=== PATIENT | female | born 1950 | race Caucasian/White ===

== ENCOUNTER → 2016-07-12 | Outpatient (CLI) | payer MEDICARE ==
[~2016-07-12] MED LIST: DICL75TA2 PO; FLUO20CA25 PO; MOEX15TA PO; ONDA4TAB11 PO; SIMV20TA3 PO; SPIR100T28 PO
--- OUTSIDE RECORDS SUMMARY | 2016-07-12 09:30 | XMS REPORT | Continuity of Care Document ---
Author Author [facility] Organization [facility] Address Unknown Phone Unavailable Allergies Active Description Code Type Severity Reaction Onset Reported/Identified Relationship to Patient Clinical Status Yes NKANo Known Allergies NKA Miscellaneous Allergy Unknown N/ A 12/27/2005 Medications Problems Date Dx Coded Attending Type Code Diagnosis Diagnosed By 12/26/2011 Ot 723.0 CERVICAL SPINAL STENOSIS 12/26/2011 Ot V57.1 PHYSICAL THERAPY NEC 05/04/2012 Ot 719.47 JOINT PAIN-ANKLE 05/04/2012 Ot 845.00 SPRAIN OF ANKLE NOS 05/04/2012 Ot E000.8 OTHER EXTERNAL CAUSE STATUS 05/04/2012 Ot E849.0 ACCIDENT IN HOME 05/04/2012 Ot E888.9 FALL NOS 03/23/2013 LIANA FAGAN, TIRSO Baird Ot 728.87 MUSCLE WEAKNESS (GENERALIZED) 03/23/2013 TIRSO GAINES MD Ot V57.1 PHYSICAL THERAPY NEC 03/23/2013 TIRSO GAINES MD Ot V58.78 AFTERCARE POST SURGERY MUSCULOSKELETAL S 06/07/2013 ALICJA FAGAN, PARAM Diehl Ot 455.3 EXT HEMORRHOID W/O COMPL 06/07/2013 ALICJA FAGAN, PARAM Diehl Ot V12.72 PERSONAL HISTORY OF COLONIC POLYPS 08/15/2014 LAURITA FAGAN, MOO Lindsey Ot 722.52 08/15/2014 MOO SHAY MD Ot V57.1 09/13/2014 MOO SHAY MD Ot 722.52 LUMB/LUMBOSAC DISC DEGEN 09/13/2014 MOO SHAY MD Ot V57.1 PHYSICAL THERAPY NEC 10/08/2014 MOO SHAY MD Ot V76.12 02/09/2015 MAL SERRANO MD Ot K59.00 CONSTIPATION, UNSPECIFIED 02/09/2015 MAL SERRANO MD Ot R11.2 NAUSEA WITH VOMITING, UNSPECIFIED 02/09/2015 MAL SERRANO MD Ot R55 SYNCOPE AND COLLAPSE 09/06/2015 AGUAYO DO, JULIETTE L Ot S52.571A OTH INTARTIC FRACTURE OF LOWER END OF RI 09/06/2015 AGUAYO DO, JULIETTE L Ot W01.0XXA FALL SAME LEV FROM SLIP/TRIP W/O STRIKE 09/06/2015 AGUAYO DO, JULIETTE L Ot Y92.[address]LE [address] 09/06/2015 AGUAYO DO, JULIETTE L Ot Y93.52 ACTIVITY, HORSEBACK RIDING 09/06/2015 AGUAYO DO, JULIETTE L Ot Y99.8 OTHER EXTERNAL CAUSE STATUS 09/06/2015 AGUAYO DO, JULIETTE L Ot Z87.891 PERSONAL HISTORY OF NICOTINE DEPENDENCE 09/07/2015 AGUAYO DO, JULIETTE L Ot S52.571A OTH INTARTIC FRACTURE OF LOWER END OF RI 09/07/2015 AGUAYO DO, JULIETTE L Ot W01.0XXA FALL SAME LEV FROM SLIP/TRIP W/O STRIKE 09/07/2015 AGUAYO DO, JULIETTE L Ot Y92.[address] 09/07/2015 AGUAYO DO, JULIETTE L Ot Y93.52 ACTIVITY, HORSEBACK RIDING 09/07/2015 AGUAYO DO, JULIETTE L Ot Y99.8 OTHER EXTERNAL CAUSE STATUS 09/07/2015 AGUAYO DO, JULIETTE L Ot Z87.891 PERSONAL HISTORY OF NICOTINE DEPENDENCE 09/08/2015 AGUAYO DO, JULIETTE L Ot S52.571A OTH INTARTIC FRACTURE OF LOWER END OF RI 09/08/2015 AGUAYO DO, JULIETTE L Ot W01.0XXA FALL SAME LEV FROM SLIP/TRIP W/O STRIKE 09/08/2015 AGUAYO DO, JULIETTE L Ot Y92.[address] 09/08/2015 AGUAYO DO, JULIETTE L Ot Y93.52 ACTIVITY, HORSEBACK RIDING 09/08/2015 AGUAYO DO, JULIETTE L Ot Y99.8 OTHER EXTERNAL CAUSE STATUS 09/08/2015 AGUAYO DO, JULIETTE L Ot Z87.891 PERSONAL HISTORY OF NICOTINE DEPENDENCE 09/29/2015 AGUAYO DO, JULIETTE L Ot S52.571A OTH INTARTIC FRACTURE OF LOWER END OF RI 09/29/2015 AGUAYO DO, JULIETTE L Ot W01.0XXA FALL SAME LEV FROM SLIP/TRIP W/O STRIKE 09/29/2015 JULIETTE AGUAYO DO Ot Y92.[address] 09/29/2015 JULIETTE AGUAYO DO Ot Y93.52 ACTIVITY, HORSEBACK RIDING 09/29/2015 JULIETTE AGUAYO DO Ot Y99.8 OTHER EXTERNAL CAUSE STATUS 09/29/2015 JULIETTE AGUAYO DO Ot Z87.891 PERSONAL HISTORY OF NICOTINE DEPENDENCE 01/11/2016 ALICJA FAGAN, PARAM Diehl Ot V72.84 EXAM PRE-OPERATIVE NOS 01/11/2016 LAURITA FAGAN, MOO Lindsey Ot V76.12 OTH SCREEN MAMMO-MALIGN NEOPLASM OF [place] 01/11/2016 MOO SHAY MD Ot V76.12 OTH SCREEN MAMMO-MALIGN NEOPLASM OF [place] 01/12/2016 MOO SHAY MD Ot M47.816 SPONDYLOSIS W/O MYELOPATHY OR RADICULOPA 01/12/2016 MOO SHAY MD Ot M85.89 OT DISRD OF BONE DENSITY AND STRUCTURE , 01/16/2016 OMO SHAY MD Ot M47.816 SPONDYLOSIS W/O MYELOPATHY OR RADICULOPA 01/16/2016 MOO SHAY MD Ot M85.89 OTH DISRD OF BONE DENSITY AND STRUCTURE , 02/01/2016 MOO SHAY MD Ot M47.816 SPONDYLOSIS W/O MYELOPATHY OR RADICULOPA 02/01/2016 MOO SHAY MD Ot M85.89 OT DISRD OF BONE DENSITY AND STRUCTURE , Procedures Results Encounters ACCT No. Visit Date/Time Discharge Status Pt. Type Provider Facility Loc./Unit Complaint [id number] 09/06/2015 12:43:00 2015 14:32:00 DIS Emergency JULIETTE AGUAYO DO [facility] ER RIGHT ARM INJURY [id number] 02/08/2015 23:53:00 2014 03:56:00 DIS Emergency MAL SERRANO MD [facility] ER SOA [id number] 09/01/2014 13:00:00 2014 08:49:00 DIS Outpatient MOO SHAY MD [facility] REHAB LUMBAGO,DDD [id number] 09/06/2014 08:50:00 2014 23:59:59 CLS Outpatient MOO SHAY MD [facility] RAD SCREENING [id number] 08/12/2013 07:23:00 2013 23:59:59 CLS Outpatient MOO SHAY MD [facility] RAD SCREENING [id number] 06/07/2013 08:04:00 2013 10:50:00 DIS Outpatient PARAM HELM MD [facility] SDC HX POLYPS [id number] 06/03/2013 07:24:00 2013 23:59:59 CLS Outpatient PARAM HELM MD [facility] PREOP HX POLYPS [id number] 03/18/2013 11:15:00 2012 14:09:00 DIS Outpatient TIRSO GAINES MD [facility] REHAB GENERALIZED MUSCLE WEAKNESS S/P SURGERY [id number] 01/11/2016 08:15:00 ACT Outpatient MOO SHAY MD [facility] RAD OSTEOPOROSIS [id number] 01/11/2016 08:13:00 Document Registration [id number] 01/11/2016 08:13:00 Document Registration [id number] 05/04/2012 15:05:00 Document Registration [id number] 12/19/2011 14:58:00 Document Registration
--- NOTE | 2016-07-12 11:12 | Diagnostic Imaging Report ---
Bilateral screening mammogram. The current study was also evaluated with a Computer Aided Detection (CAD) system. INDICATION: Screening. No current complaints stated on the questionnaire. COMPARISON: 09/06/2014. FINDINGS: The breasts are composed of scattered fibroglandular densities. There are scattered benign-appearing calcifications and suggestion of an intramammary lymph node in the axillary tail of the right breast. Allowing for technique and positional differences, no suspicious change is seen. IMPRESSION: No significant change. ACR BI-RADS Category 2: Benign findings. Result letter will be mailed to the patient. Note: At least 10% of breast cancer is not imaged by mammography. Dictated by: Dictated on workstation # [id number]
== END ==
LOC: RAD 09:27
PROVIDERS: ATTEND Family Medicine
DX: Z12.31 Encounter for screening mammogram for malignant neoplasm of breast (principal)
CPT/HCPCS: 77067

== ENCOUNTER → 2018-07-27 | Outpatient (CLI) | payer MEDICARE ==
--- NOTE | 2018-07-27 12:29 | Diagnostic Imaging Report ---
INDICATION: Routine screening. COMPARISON: Comparison is made with prior mammograms from 07/12/2016 and 09/06/2014. TECHNIQUE: 2D and 3D bilateral screening mammography was performed with computer-aided detection (CAD) system. FINDINGS: Scattered fibroglandular densities are identified bilaterally. Density in the upper-outer right breast appears stable. There are scattered benign calcifications. No new mass or malignant appearing microcalcifications are seen. The axillae are unremarkable. IMPRESSION: No mammographic features suspicious for malignancy are identified. ACR BI-RADS Category 2: Benign findings. Result letter will be mailed to the patient. Note: At least 10% of breast cancer is not imaged by mammography. Dictated by: Dictated on workstation # [id number]
== END ==
LOC: RAD 09:43
PROVIDERS: ATTEND Family Medicine
DX: Z12.31 Encounter for screening mammogram for malignant neoplasm of breast (principal)
CPT/HCPCS: 77067

== ENCOUNTER 2019-09-03 14:39 | Inpatient (IN) | payer MEDICARE ==
[~2019-09-03] VITALS: Ht 157.5 cm; Wt 75.0 kg
--- OUTSIDE RECORDS SUMMARY | 2019-09-03 14:56 | XMS REPORT | Continuity of Care Document ---
Demographics Preferred Language Unknown Marital Status Unknown Caodaism Affiliation Unknown Race Unknown Ethnic Group Unknown Author Organization Unknown Address Unknown Phone Unavailable Allergies Active Description Code Type Severity Reaction Onset Reported/Identified Relationship to Patient Clinical Status Yes CODEINE SULFATE U NKNOWN GI PROBLEMS - NAUSEA Yes CODEINE SULFATE U NKNOWN UNKNOWN Yes NKANo Known Allergies NKA Miscellaneous Allergy Unknown N/A 12/27/2005 Medications There is no data. Problems Date Dx Coded Attending Type Code Diagnosis Diagnosed By 12/26/2011 Ot 723.0 CERV ICAL SPINAL STENOSIS 12/26/2011 Ot V57.1 PHYS ICAL THERAPY NEC 05/04/2012 Ot 719.47 JAYLENE NT PAIN-ANKLE 05/04/2012 Ot 845.00 SPR AIN OF ANKLE NOS 05/04/2012 Ot E000.8 OTH ER EXTERNAL CAUSE STATUS 05/04/2012 Ot E849.0 ACC IDENT IN HOME 05/04/2012 Ot E888.9 FAL L NOS 03/23/2013 LIANA FAGAN, TIRSO Baird Ot 728.87 MUSCLE WEAKNESS (GENERALIZED) 03/23/2013 TIRSO GAINES MD Ot V57.1 PHYSICAL THERAPY NEC 03/23/2013 TIRSO GAINES MD Ot V58.78 AFTERCARE POST SURGERY MUSCULOSKELETAL S 06/07/2013 ALICJA FAGAN, PARAM Diehl Ot 455.3 EXT HEMORRHOID W/O COMPL 06/07/2013 PARAM HELM MD Ot V12.72 PERSONAL HISTORY OF COLONIC POLYPS 08/15/2014 LAURITA FAGAN, MOO Lindsey Ot 722.52 08/15/2014 MOO SHAY MD Ot V57.1 09/13/2014 MOO SHAY MD Ot 722.52 LUMB/LUMBOSAC DISC DEGEN 09/13/2014 MOO SHAY MD Ot V57.1 PHYSICAL THERAPY NEC 10/08/2014 MOO SHAY MD Ot V76.12 02/09/2015 MAL SERRANO MD Ot K59.00 CONSTIPATION, UNSPECIFIED 02/09/2015 MAGGIE MD, MAL D Ot R11.2 NAUSEA WITH VOMITING, UNSPECIFIED 02/09/2015 MAGGIE FAGAN, MAL Cruz Ot R55 SYNCOPE AND COLLAPSE 09/06/2015 AGUAYO DO, JULIETTE L Ot S52.571A OTH INTARTIC FRACTURE OF LOWER END OF RI 09/06/2015 AGUAYO DO, JULIETTE L Ot W01.0XXA FALL SAME LEV FROM SLIP/TRIP W/O STRIKE 09/06/2015 AGUAYO DO, JULIETTE L Ot Y92.8 [address] 09/06/2015 AGUAYO DO, JULIETTE L Ot Y93.5 2 ACTIVITY, HORSEBACK RIDING 09/06/2015 AGUAYO DO, JULIETTE L Ot Y99.8 OTHER EXTERNAL CAUSE STATUS 09/06/2015 AGUAYO DO, JULIETTE L Ot Z87.8 91 PERSONAL HISTORY OF NICOTINE DEPENDENCE 09/07/2015 AGUAYO DO, JULIETTE L Ot S52.571A OTH INTARTIC FRACTURE OF LOWER END OF RI 09/07/2015 AGUAYO DO, JULIETTE L Ot W01.0XXA FALL SAME LEV FROM SLIP/TRIP W/O STRIKE 09/07/2015 AGUAYO DO, JULIETTE L Ot Y92.8 [address] 09/07/2015 AGUAYO DO, JULIETTE L Ot Y93.5 2 ACTIVITY, HORSEBACK RIDING 09/07/2015 AGUAYO DO, JULIETTE L Ot Y99.8 OTHER EXTERNAL CAUSE STATUS 09/07/2015 AGUAYO DO, JULIETTE L Ot Z87.8 91 PERSONAL HISTORY OF NICOTINE DEPENDENCE 09/08/2015 AGUAYO DO, JULIETTE L Ot S52.571A OTH INTARTIC FRACTURE OF LOWER END OF RI 09/08/2015 AGUAYO DO, JULIETTE L Ot W01.0XXA FALL SAME LEV FROM SLIP/TRIP W/O STRIKE 09/08/2015 AGUAYO DO, JULIETTE L Ot Y92.8 [address] 09/08/2015 AGUAYO DO, JULIETTE L Ot Y93.5 2 ACTIVITY, HORSEBACK RIDING 09/08/2015 AGUAYO DO, JULIETTE L Ot Y99.8 OTHER EXTERNAL CAUSE STATUS 09/08/2015 AGUAYO DO, JULIETTE L Ot Z87.8 91 PERSONAL HISTORY OF NICOTINE DEPENDENCE 09/29/2015 AGUAYO DO, JULIETTE L Ot S52.571A OTH INTARTIC FRACTURE OF LOWER END OF RI 09/29/2015 AGUAYO DO, JULIETTE L Ot W01.0XXA FALL SAME LEV FROM SLIP/TRIP W/O STRIKE 09/29/2015 AGUAYO DO, JULIETTE L Ot Y92.8 [address] 09/29/2015 AGUAYO DO, JULIETTE L Ot Y93.5 2 ACTIVITY, HORSEBACK RIDING 09/29/2015 AGUAYO DO, JULIETTE L Ot Y99.8 OTHER EXTERNAL CAUSE STATUS 09/29/2015 AGUAYO DO, JULIETTE L Ot Z87.8 91 PERSONAL HISTORY OF NICOTINE DEPENDENCE 01/11/2016 ALICJA FAGAN, PARAM M Ot V72.84 EXAM PRE-OPERATIVE NOS 01/11/2016 LAURITA FAGAN, MOO Lindsey Ot V76.12 OTH SCREEN MAMMO-MALIGN NEOPLASM OF [place] 01/11/2016 MOO SHAY MD Ot V76.12 OTH SCREEN MAMMO-MALIGN NEOPLASM OF [place] 01/12/2016 LAURITA FAGAN, MOO L Ot M47.816 SPONDYLOSIS W/O MYELOPATHY OR RADICULOPA 01/12/2016 LAURITA FAGAN, MOO L Ot M85.89 OTH DISRD OF BONE DENSITY AND STRUCTURE, 01/16/2016 MOO SHAY MD Ot M47.816 SPONDYLOSIS W/O MYELOPATHY OR RADICULOPA 01/16/2016 LAURITA FAGAN, MOO L Ot M85.89 OTH DISRD OF BONE DENSITY AND STRUCTURE, 02/01/2016 MOO SHAY MD L Ot M47.816 SPONDYLOSIS W/O MYELOPATHY OR RADICULOPA 02/01/2016 MOO SHAY MD L Ot M85.89 OT DISRD OF BONE DENSITY AND STRUCTURE, 07/08/2016 W 272.4 OTHE R AND UNSPECIFIED HYPERLIPIDEMIA 07/08/2016 W 296.30 LIVIA OR DEPRESSIVE DISORDER, RECURRENT EPISODE, UNSPECIFIED DEGREE 07/08/2016 W 300.02 GEN ERALIZED ANXIETY DISORDER 07/08/2016 W 401.0 AMANDA GNANT ESSENTIAL HYPERTENSION 07/08/2016 W 493 ASTHMA 07/08/2016 W 696.1 OTHE R PSORIASIS 07/08/2016 W 714.0 RHEU MATOID ARTHRITIS 07/08/2016 W 715.90 OST EOARTHROSIS, UNSPECIFIED WHETHER GENERALIZED OR LOCALIZED, INVOLVING UNSPECIFIED SITE 07/08/2016 W E78.5 HYPE RLIPIDEMIA, UNSPECIFIED 07/08/2016 W F33.9 LUIS R DEPRESSIVE DISORDER, RECURRENT, UNSPECIFIED 07/08/2016 W F41.1 GENE RALIZED ANXIETY DISORDER 07/08/2016 W I10 ESSENT IAL (PRIMARY) HYPERTENSION 07/08/2016 W J45.909 UN SPECIFIED ASTHMA, UNCOMPLICATED 07/08/2016 W 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 07/08/2016 W M06 OTHER RHEUMATOID ARTHRITIS 07/08/2016 W M19.90 UNS PECIFIED OSTEOARTHRITIS, UNSPECIFIED SITE 07/08/2016 W 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 07/08/2016 W Z85.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 07/12/2016 ALICJA FAGAN, PARAM Diehl Ot V72.84 EXAM PRE-OPERATIVE NOS 07/12/2016 LAURITA FAGAN, MOO Lindsey Ot V76.12 OTH SCREEN MAMMO-MALIGN NEOPLASM OF [place] 07/12/2016 MOO SHAY MD Ot V76.12 OTH SCREEN MAMMO-MALIGN NEOPLASM OF [place] 07/12/2016 MOO SHAY MD Ot M47.816 SPONDYLOSIS W/O MYELOPATHY OR RADICULOPA 07/12/2016 MOO SHAY MD Ot M85.89 OTH DISRD OF BONE DENSITY AND STRUCTURE, 07/15/2016 MOO SHAY MD Ot Z12.31 ENCNTR SCREEN MAMMOGRAM FOR MALIGNANT NE 08/05/2016 MOO SHAY MD Ot Z12.31 ENCNTR SCREEN MAMMOGRAM FOR MALIGNANT NE 01/14/2017 MOO SHAY W 491.20 OBSTRUCTIVE CHRONIC BRONCHITIS, WITHOUT EXACERBATION 01/14/2017 MOO SHAY J44.9 CHRONIC OBSTRUCTIVE PULMONARY DISEASE, UNSPECIFIED 01/14/2017 MOO SHAY 401.0 MALIGNANT ESSENTIAL HYPERTENSION 01/14/2017 MOO SHAY 491.20 OBSTRUCTIVE CHRONIC BRONCHITIS, WITHOUT EXACERBATION 01/14/2017 MOO SHAY I10 ESSENTIAL (PRIMARY) HYPERTENSION 01/14/2017 MOO SHAY J44.9 CHRONIC OBSTRUCTIVE PULMONARY DISEASE, UNSPECIFIED 01/14/2017 SHAY, MOO W 401.0 MALIGNANT ESSENTIAL HYPERTENSION 01/14/2017 SHAYCHINAMOO W 491.20 OBSTRUCTIVE CHRONIC BRONCHITIS, WITHOUT EXACERBATION 01/14/2017 MOO SHAY W I10 ESSENTIAL (PRIMARY) HYPERTENSION 01/14/2017 SHAY MOO W J44.9 CHRONIC OBSTRUCTIVE PULMONARY DISEASE, UNSPECIFIED 01/14/2017 W 272.4 OTHE R AND UNSPECIFIED HYPERLIPIDEMIA 01/14/2017 W 296.35 LIVIA OR DEPRESSIVE DISORDER, RECURRENT EPISODE, IN PARTIAL OR UNSPECIFIED REMISSION 01/14/2017 W 300.02 GEN ERALIZED ANXIETY DISORDER 01/14/2017 W 401.0 AMANDA GNANT ESSENTIAL HYPERTENSION 01/14/2017 W 491.20 OBS TRUCTIVE CHRONIC BRONCHITIS, WITHOUT EXACERBATION 01/14/2017 W 696.1 OTHE R PSORIASIS 01/14/2017 W 715.30 OST EOARTHROSIS, LOCALIZED, NOT SPECIFIED WHETHER PRIMARY OR SECONDARY, INVOLVING UNSPECIFIED SITE 01/14/2017 W 722.6 DEGE NERATION OF INTERVERTEBRAL DISC, SITE UNSPECIFIED 01/14/2017 W E78.5 HYPE RLIPIDEMIA, UNSPECIFIED 01/14/2017 W F33 MAJOR DEPRESSIVE DISORDER, RECURRENT 01/14/2017 W F41.1 GENE RALIZED ANXIETY DISORDER 01/14/2017 W I10 ESSENT IAL (PRIMARY) HYPERTENSION 01/14/2017 W 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, UNSPECIFIED 01/14/2017 W 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 01/14/2017 W M19.90 UNS PECIFIED OSTEOARTHRITIS, UNSPECIFIED SITE 01/14/2017 W M50.30 OTH ER CERVICAL DISC DEGENERATION, UNSPECIFIED CERVICAL REGION 01/14/2017 W 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 01/14/2017 W Z85.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 07/08/2017 MOO SHAY W 401.0 MALIGNANT ESSENTIAL HYPERTENSION 07/08/2017 MOO SHAY I10 ESSENTIAL (PRIMARY) HYPERTENSION 07/08/2017 MOO SHAY W 401.0 MALIGNANT ESSENTIAL HYPERTENSION 07/08/2017 MOO SHAY I10 ESSENTIAL (PRIMARY) HYPERTENSION 07/08/2017 W 401.0 AMANDA GNANT ESSENTIAL HYPERTENSION 07/08/2017 W I10 ESSENT IAL (PRIMARY) HYPERTENSION 07/08/2017 SHAY, MOO W 401.0 MALIGNANT ESSENTIAL HYPERTENSION 07/08/2017 MOO SHAY W I10 ESSENTIAL (PRIMARY) HYPERTENSION 02/13/2018 Joslyn Mari W 112.3 CANDIDIASIS OF SKIN AND NAILS 02/13/2018 Joslyn Mari W B37.2 CANDIDIASIS OF SKIN AND NAIL 02/13/2018 Joslyn Mari W 112.3 CANDIDIASIS OF SKIN AND NAILS 02/13/2018 Joslyn Mari W B37.2 CANDIDIASIS OF SKIN AND NAIL 02/13/2018 W 112.3 CAND IDIASIS OF SKIN AND NAILS 02/13/2018 W B37.2 CAND IDIASIS OF SKIN AND NAIL 03/09/2018 SHAY, MOO W 272.4 OTHER AND UNSPECIFIED HYPERLIPIDEMIA 03/09/2018 SHAY, MOO W 401.0 MALIGNANT ESSENTIAL HYPERTENSION 03/09/2018 [place] SHAYHEL W E78.5 HYPERLIPIDEMIA, UNSPECIFIED 03/09/2018 [place] SHAYHEL W I10 ESSENTIAL (PRIMARY) HYPERTENSION 03/09/2018 [place] SHAYSHERRI Hanson V70.0 ROUTINE GENERAL MEDICAL EXAMINATION AT A HEALTH CARE FACILITY 03/09/2018 MOO SHAY Margie Z00.01 ENCOUNTER FOR GENERAL ADULT MEDICAL EXAMINATION WITH ABNORMAL FINDINGS 03/09/2018 SHAYCHINAMOO W 272.4 OTHER AND UNSPECIFIED HYPERLIPIDEMIA 03/09/2018 SHAYCHINAMOO W 401.0 MALIGNANT ESSENTIAL HYPERTENSION 03/09/2018 MOO SHAY W E78.5 HYPERLIPIDEMIA, UNSPECIFIED 03/09/2018 MOO SHAY W I10 ESSENTIAL (PRIMARY) HYPERTENSION 03/09/2018 SHAYCHINAMOO W V70.0 ROUTINE GENERAL MEDICAL EXAMINATION AT A HEALTH CARE FACILITY 03/09/2018 SHAYCHINAMOO W Z00.01 ENCOUNTER FOR GENERAL ADULT MEDICAL EXAMINATION WITH ABNORMAL FINDINGS 03/09/2018 W 112.1 CAND IDIASIS OF VULVA AND VAGINA 03/09/2018 W 272.4 OTHE R AND UNSPECIFIED HYPERLIPIDEMIA 03/09/2018 W 401.0 AMANDA GNANT ESSENTIAL HYPERTENSION 03/09/2018 W B37.3 CAND IDIASIS OF VULVA AND VAGINA 03/09/2018 W E78.5 HYPE RLIPIDEMIA, UNSPECIFIED 03/09/2018 W I10 ESSENT IAL (PRIMARY) HYPERTENSION 03/09/2018 W 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 03/09/2018 W V70.0 ROUT INE GENERAL MEDICAL EXAMINATION AT A HEALTH CARE FACILITY 03/09/2018 W V76.47 SCR EENING FOR MALIGNANT NEOPLASMS OF THE VAGINA 03/09/2018 W Z00.01 ENC OUNTER FOR GENERAL ADULT MEDICAL EXAMINATION WITH ABNORMAL FINDINGS 03/09/2018 W Z12.72 ENC OUNTER FOR SCREENING FOR MALIGNANT NEOPLASM OF VAGINA 03/09/2018 W Z85.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 03/09/2018 MOO SHAY 272.4 OTHER AND UNSPECIFIED HYPERLIPIDEMIA 03/09/2018 MOO SHAY W 401.0 MALIGNANT ESSENTIAL HYPERTENSION 03/09/2018 MOO SHAY E78.5 HYPERLIPIDEMIA, UNSPECIFIED 03/09/2018 MOO SHAY I10 ESSENTIAL (PRIMARY) HYPERTENSION 03/09/2018 MOO SHAY V70.0 ROUTINE GENERAL MEDICAL EXAMINATION AT A HEALTH CARE FACILITY 03/09/2018 MOO SHAY Z00.01 ENCOUNTER FOR GENERAL ADULT MEDICAL EXAMINATION WITH ABNORMAL FINDINGS 03/10/2018 MOO SHAY MD, Ot Z12.31 ENCNTR SCREEN MAMMOGRAM FOR MALIGNANT NE 03/10/2018 OMO SHAY MD, Ot Z12.31 ENCNTR SCREEN MAMMOGRAM FOR MALIGNANT NE 07/23/2018 MOO SHAY MD, Ot Z12.31 ENCNTR SCREEN MAMMOGRAM FOR MALIGNANT NE 07/27/2018 ALICJA FAGAN, PARAM Diehl Ot V72.84 EXAM PRE-OPERATIVE NOS 07/27/2018 MOO SHAY MD Ot V76.12 OTH SCREEN MAMMO-MALIGN NEOPLASM OF [place] 07/27/2018 MOO SHAY MD Ot V76.12 OTH SCREEN MAMMO-MALIGN NEOPLASM OF [place] 07/27/2018 MOO SHAY MD Ot M47.816 SPONDYLOSIS W/O MYELOPATHY OR RADICULOPA 07/27/2018 MOO SHAY MD Ot M85.89 OTH DISRD OF BONE DENSITY AND STRUCTURE, 07/27/2018 MOO SHAY MD Ot Z12.31 ENCNTR SCREEN MAMMOGRAM FOR MALIGNANT NE 07/27/2018 MOO SHAY MD Ot Z12.31 ENCNTR SCREEN MAMMOGRAM FOR MALIGNANT NE 07/27/2018 MOO SHAY MD Ot Z12.31 ENCNTR SCREEN MAMMOGRAM FOR MALIGNANT NE 08/24/2018 LAURITA FAGAN, MOO Lindsey Ot Z12.31 ENCNTR SCREEN MAMMOGRAM FOR MALIGNANT NE 09/08/2018 MOO SHAY W 272.4 OTHER AND UNSPECIFIED HYPERLIPIDEMIA 09/08/2018 MOO SHAY W E78.5 HYPERLIPIDEMIA, UNSPECIFIED 09/08/2018 W 272.4 OTHE R AND UNSPECIFIED HYPERLIPIDEMIA 09/08/2018 W 401.0 AMANDA GNANT ESSENTIAL HYPERTENSION 09/08/2018 W E78.5 HYPE RLIPIDEMIA, UNSPECIFIED 09/08/2018 W I10 ESSENT IAL (PRIMARY) HYPERTENSION 09/08/2018 MOO SHAY W 272.4 OTHER AND UNSPECIFIED HYPERLIPIDEMIA 09/08/2018 MOO SHAY E78.5 HYPERLIPIDEMIA, UNSPECIFIED Procedures There is no data. Results Test Result Range BMP - 07/08/16 09:05 Anion Gap 16 6-14 BUN 22 mg/dL 5-25 Calcium 9.7 mg/dL 8.3-10.4 Chloride 105 mmol/L 95-114 CO2 26 mEq/L 22-33 Creat 0.81 mg/dL 0.50-1.50 eGFR 71 mL/min/1.73m2 >59 Glucose 94 mg/dL 70-110 Osmo 296 280-295 Potassium 4.5 mmol/L 3.5-5.3 Sodium 142 mmol/L 134-148 Pap IG (Image Guided) - 01/14/17 09:00 DIAGNOSIS: Comment Specimen adequacy: Comment Performed by: Comment QC reviewed by: Comment . . Note: Comment Test Methodology: Comment Lipid Panel - 01/14/17 09:00 C/HDL 4.1 3.7-6.7 Cholesterol 196 mg/dL 100-240 HDL 48 mg/dL 30-85 LDL-Calculated 119 mg/dL 0-100 Trig 146 mg/dL 35-160 VLDL 29 mg/dL 0-42 Comprehensive Metabolic Panel - 01/14/17 09:00 Albumin 4.4 g/dL 3.6-5.1 ALP 90 U/L 35-130 ALT 20 U/L 6-45 Anion Gap 12 6-14 AST 22 U/L 2-40 BUN 22 mg/dL 5-25 Calcium 9.7 mg/dL 8.3-10.4 Chloride 103 mmol/L 95-114 CO2 29 mEq/L 22-33 Creat 0.75 mg/dL 0.50-1.50 eGFR 78 mL/min/1.73m2 >59 Globulin 2.4 g/dL 2.3-3.5 Glucose 90 mg/dL 70-110 Osmo 292 280-295 Potassium 4.1 mmol/L 3.5-5.3 Sodium 140 mmol/L 134-148 TBil 0.7 mg/dL 0.2-1.2 TP 6.8 g/dL 6.0-8.3 BMP - 07/08/17 08:00 Anion Gap 12 6-14 BUN 28 mg/dL 5-25 Calcium 10.2 mg/dL 8.3-10.4 Chloride 106 mmol/L 95-114 CO2 30 mEq/L 22-33 Creat 0.89 mg/dL 0.50-1.50 eGFR 64 mL/min/1.73m2 >59 Glucose 99 mg/dL 70-110 Osmo 300 280-295 Potassium 4.5 mmol/L 3.5-5.3 Sodium 143 mmol/L 134-148 Fungus (Mycology) Culture - 02/13/18 10: 00 FUNGUS (MYCOLOGY) CULTURE Final report RESULT 1 No yeast or mold isolated after 4 weeks. Fungus (Mycology) Culture - 02/13/18 10: 00 Fungus (Mycology) Culture Note Comprehensive Metabolic Panel - 03/09/18 09:20 Albumin 4.5 g/dL 3.6-5.1 ALP 79 U/L 35-130 ALT 28 U/L 6-45 Anion Gap 15 6-14 AST 28 U/L 2-40 BUN 22 mg/dL 5-25 Calcium 9.8 mg/dL 8.3-10.4 Chloride 105 mmol/L 95-114 CO2 26 mEq/L 22-33 Creat 0.74 mg/dL 0.50-1.50 eGFR 79 mL/min/1.73m2 >59 Globulin 2.3 g/dL 2.3-3.5 Glucose 95 mg/dL 70-110 Osmo 294 280-295 Potassium 4.6 mmol/L 3.5-5.3 Sodium 141 mmol/L 134-148 TBil 0.6 mg/dL 0.2-1.2 TP 6.8 g/dL 6.0-8.3 Lipid Panel - 03/09/18 09:20 C/HDL 4.3 3.7-6.7 Cholesterol 225 mg/dL 100-240 HDL 52 mg/dL 30-85 LDL-Calculated 147 mg/dL 0-100 Trig 129 mg/dL 35-160 VLDL 26 mg/dL 0-42 IGP, Aptima HPV - 03/09/18 09:20 HPV Aptima Negative Negative DIAGNOSIS: Comment Specimen adequacy: Comment Performed by: Comment QC reviewed by: Comment . . Note: Comment Test Methodology: Comment Lipid Panel - 09/08/18 08:45 C/HDL 4.4 3.7-6.7 Cholesterol 193 mg/dL 100-240 HDL 44 mg/dL 30-85 LDL-Calculated 123 mg/dL 0-100 Trig 132 mg/dL 35-160 VLDL 26 mg/dL 0-42 Comprehensive Metabolic Panel - 03/24/19 08:40 Albumin 4.7 g/dL 3.6-5.1 ALP 73 U/L 35-130 ALT 27 U/L 6-45 Anion Gap 15 6-14 AST 26 U/L 2-40 BUN 26 mg/dL 5-25 Calcium 9.8 mg/dL 8.3-10.4 Chloride 105 mmol/L 95-114 CO2 26 mEq/L 22-33 Creat 0.82 mg/dL 0.50-1.50 eGFR 70 mL/min/1.73m2 >59 Globulin 2.3 g/dL 2.3-3.5 Glucose 97 mg/dL 70-110 Osmo 296 280-295 Potassium 4.5 mmol/L 3.5-5.3 Sodium 141 mmol/L 134-148 TBil 0.6 mg/dL 0.2-1.2 TP 7.0 g/dL 6.0-8.3 Encounters ACCT No. Visit Date/Time Discharge Status Pt. Type Provider Facility Loc./Unit Complaint [id number] 01/19/2017 09:08:00 Document Registration [id number] 07/27/2018 09:43:00 019 23:59:59 CLS Outpatient MOO SHAY MD [facility] RAD SCREEN [id number] 07/12/2016 09:27:00 017 23:59:59 CLS Outpatient MOO SHAY MD [facility] RAD SCREENING [id number] 01/11/2016 08:15:00 016 23:59:59 CLS Outpatient MOO SHAY MD [facility] RAD OSTEOPOROSIS [id number] 09/06/2015 12:43:00 016 14:32:00 DIS Emergency JULIETTE AGUAYO DO [facility] ER RIGHT ARM INJURY [id number] 02/08/2015 23:53:00 03:56:00 DIS Emergency MAL SERRANO MD [facility] ER SOA [id number] 09/01/2014 13:00:00 08:49:00 DIS Outpatient MOO SHAY MD [facility] REHAB LUMBAGO,DDD [id number] 09/06/2014 08:50:00 23:59:59 CLS Outpatient MOO SHAY MD [facility] RAD SCREENING [id number] 08/12/2013 07:23:00 014 23:59:59 CLS Outpatient MOO SHAY MD [facility] RAD SCREENING [id number] 06/07/2013 08:04:00 014 10:50:00 DIS Outpatient PARAM HELM MD [facility] SDC HX POLYPS [id number] 06/03/2013 07:24:00 014 23:59:59 CLS Outpatient PARAM HELM MD [facility] PREOP HX POLYPS [id number] 03/18/2013 11:15:00 013 14:09:00 DIS Outpatient TIRSO GAINES MD [facility] REHAB GENERALIZED MUS RU WEAKNESS S/P SURGERY [id number] 01/11/2016 08:13:00 Document Registration [id number] 01/11/2016 08:13:00 Document Registration [id number] 05/04/2012 15:05:00 Document Registration [id number] 12/19/2011 14:58:00 Document Registration [id number] 08/31/2019 16:15:00 08/31/2019 23:59 :00 DIS Outpatient MOO SHAY [id number] 06/09/2019 16:29:00 06/09/2019 23:59 :00 DIS Outpatient MOO SHAY [id number] 03/24/2019 09:05:00 03/24/2019 23:59: 00 DIS Outpatient MOO SHAY [id number] 03/24/2019 08:59:00 03/24/2019 23:59: 00 DIS Outpatient MOO SHAY [id number] 09/08/2018 10:36:00 09/08/2018 23:59: 00 DIS Outpatient MOO SHAY [id number] 03/09/2018 14:36:00 03/09/2018 23:59: 00 DIS Outpatient MOO SHAY [id number] 03/09/2018 10:03:00 03/09/2018 23:59: 00 DIS Outpatient MOO SHAY [id number] 02/13/2018 14:49:00 02/13/2018 23:59: 00 DIS Outpatient Joslyn Mari [id number] 07/08/2017 13:00:00 07/08/2017 23:59: 00 DIS Outpatient MOO SHAY [id number] 01/14/2017 11:03:00 01/14/2017 23:59: 00 DIS Outpatient MOO SHAY [id number] 07/08/2016 10:17:00 07/08/2016 23:59: 00 DIS Outpatient MOO SHAY [id number] 09/08/2018 08:50:00 Document Registration [id number] 03/09/2018 08:40:00 Document Registration [id number] 02/13/2018 09:30:00 Document Registration [id number] 07/08/2017 07:56:00 Document Registration [id number] 01/14/2017 08:15:00 Document Registration [id number] 07/08/2016 08:30:00 Document Registration [id number] 03/15/2018 12:08:00 Document Registration [id number] 03/16/2018 09:09:00 Document Registration
--- OUTSIDE RECORDS SUMMARY | 2019-09-03 14:56 | XMS REPORT ---
Author Author [employer] Organization [employer] Address [address] [address] Care Team Providers Care Pneumatic Drum Sander Name Role Phone CHINA SHAYSHERRI Lindsey Unavailable ONELIA, RADHA Unavailable Unavailable ROUSSEAU, RADHA Unavailable Unavailable ROUSSEAU, RADHA Unavailable Unavailable SHAY, MOO Unavailable Unavailable SHAY, MOO Unavailable Unavailable SHAY, MOO Unavailable Unavailable ALICJA FAGAN, PARAM Diehl Unavailable Unavailable OLIVIER VELOZ, JULIETTE Lindsey Unavailable Unavailable LIANA FAGAN, TIRSO Baird Unavailable Unavailable MAGGIE FAGAN, MAL Cruz Unavailable Unavailable LAURITA FAGAN, MOO Lindsey Unavailable Unavailable SHAY, MOO Unavailable Unavailable SHAY, MOO Unavailable Unavailable SHAY, MOO Unavailable Unavailable MALCOM FAGAN, ITZ Olivas Unavailable Unavailable Allergies Normalized Allergy Reported Date of Reaction(s) Care Provider Facility Allergy Type classification allergen Allergy Onset Drug Allergy Opioid codeine GI PROBLEMS - MOO SHAY N ot Available (23 sources.) Agonists NAUSEA, (69298) UNKNOWN MA (23 Unclassified NKANo Known 12-27-2005 - no information MA RGARET Not Available sources.) Allergies MD LIANA ([id number]) Medications No Information Problems Active Problems Problem Normalized Date of Normalized Normalized Provider Fac ility Classification Problem(s) Problem Problem Problem Sta tus Onset/Resoluti Duration on Other Aftercare Episodic Active TIRSO Not Availabl e aftercare (2 following MD LIANA (95079) sources.) surgery of the musculoskeleta l system, NEC Mycoses (15 Candidiasis of Episodic Active RADHA RUOSSEAU [facility]sp[facility] sources.) skin and nail [facility] Translations: [place] [ [place]ID[place]ASIS [place] (57[address]) OF SKIN AND NAILS, CANDIDIASIS OF VULVA AND VAGINA, CANDIDIASIS OF VULVA AND VAGINA] Other Care involving Episodic Active MOO SHAY No t Available aftercare (5 other physical , (45272) sources.) therapy Chronic Chronic Chronic Active MOO SHAY Not Avai lable obstructive obstructive (22522) pulmonary pulmonary disease and disease, bronchiectasis unspecified (26 sources.) Translations: [ OBSTRUCTIVE CHRONIC BRONCHITIS, WITHOUT EXACERBATION, CHRONIC OBSTRUCTIVE PULMONARY DISEASE, UNSPECIFIED] Other Constipation, Episodic Active MAL Not Avai lable gastrointestin unspecified MD MAGGIE (36893) al disorders (2 sources.) Spondylosis; Degeneration Chronic Active MOOSHERRI SHAY N ot Available intervertebral of lumbar or , (05794) disc lumbosacral disorders; intervertebral other back disc problems (24 Translations: sources.) [ SPONDYLOSIS W/O MYELOPATHY OR RADICULOPA, OTHER CERVICAL DISC DEGENERATION, UNSPECIFIED CERVICAL REGION, DEGENERATION OF INTERVERTEBRAL DISC, SITE UNSPECIFIED] Other Encounter for Episodic Active MOOSHERRI SHAY Not Available screening for screening for , (05455) suspected malignant conditions neoplasm of (not mental vagina disorders or Translations: infectious [ SCREENING disease) (20 FOR MALIGNANT sources.) NEOPLASMS OF THE VAGINA, ENCNTR SCREEN MAMMOGRAM FOR MALIGNANT NE, OTH SCREEN MAMMO-MALIGN NEOPLASM OF [place]] Essential Essential Chronic Active MOOSHERRI SHAY Not Stefanie ilable hypertension (primary) (27939) (20 sources.) hypertension Translations: [ MALIGNANT ESSENTIAL HYPERTENSION, MALIGNANT ESSENTIAL HYPERTENSION, ESSENTIAL (PRIMARY) HYPERTENSION] Hemorrhoids (2 External Episodic Active PARAM HELM Not Available sources.) hemorrhoids MD (46547) without mention of complication Anxiety Generalized [facility] padilla disorders (20 anxiety [facility] of sources.) disorder [place] Translations: [facility] (00740) [ GENERALIZED ANXIETY DISORDER] Disorders of Hyperlipidemia Chronic Active [facility] lipid , unspecified [facility] of metabolism (21 Translations: [place] sources.) [ OTHER AND [place] ([address]) UNSPECIFIED HYPERLIPIDEMIA , OTHER AND UNSPECIFIED HYPERLIPIDEMIA , HYPERLIPIDEMIA , UNSPECIFIED] Mood disorders Major Chronic Active [facility] pital (18 sources.) depressive [facility] [place] [facility] recurrent episode, in partial or unspecified remission Translations: [ MAJOR DEPRESSIVE DISORDER, RECURRENT EPISODE, UNSPECIFIED DEGREE, MAJOR DEPRESSIVE DISORDER, RECURRENT, UNSPECIFIED] Other Muscle Episodic Active TIRSO Not Available connective weakness MD LIANA (08670) tissue disease (generalized) (2 sources.) Fracture of Other Episodic Active JULIETTE AGUAYO , Not Stefanie ilable upper limb (4 intraarticular DO (59567) sources.) fracture of lower end of right radius, initial encounter for closed fracture 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 (28 history of [facility] of sources.) malignant [place] neoplasm of [facility] (43724) cervix uteri Translations: [ PERSONAL HISTORY OF MALIGNANT NEOPLASM OF CERVIX UTERI, PERSONAL HISTORY OF MALIGNANT NEOPLASM OF CERVIX UTERI] Screening and Personal Episodic Active JULIETTE AGUAYO , Not A vailable history of history of DO (56363) mental health nicotine and substance dependence abuse codes (2 sources.) Other Psoriasis Chronic Active [facility] inflammatory vulgaris [facility] of condition of [place] skin (14 [place] (09685) sources.) Rheumatoid Rheumatoid Chronic Active [facility] arthritis and arthritis [facility] of related [place] disease (4 [facility] (51413) sources.) Asthma (4 Unspecified Chronic Active [facility] sources.) asthma, [facility] of uncomplicated [facility] (48269) Osteoarthritis Unspecified [facility] Active [facility] (20 sources.) osteoarthritis [facility] of , unspecified [facility] (41822) Translations: [ OSTEOARTHROSIS , LOCALIZED, NOT SPECIFIED WHETHER PRIMARY OR SECONDARY, INVOLVING UNSPECIFIED SITE, OSTEOARTHROSIS , UNSPECIFIED WHETHER GENERALIZED OR LOCALIZED, INVOLVING UNSPECIFIED SITE] Past or Other Problems Problem Normalized Date of Normalized Normalized Provider Fac ility Classification Problem(s) Problem Problem Problem Sta tus Onset/Resoluti Duration on External cause Activity, no information no information ITZ OLIVER Not Available codes: MD jean-paul (13645) Unspecified (5 riding sources.) Translations: [ OTHER EXTERNAL CAUSE STATUS, OTHER EXTERNAL CAUSE STATUS] Unclassified Asthma no information no information [facility] (4 sources.) [facility] (55334) External cause Fall on same no information no information DARBY العراقي Not Available codes: Fall (3 level from , (96643) sources.) slipping, tripping and stumbling without subsequent striking against object, initial encounter Translations: [ FALL NOS] Unclassified Major no information no information [facility] (10 sources.) depressive [facility] of disorder, [facility] (19301) Unclassified Other no information no information [facility] (4 sources.) rheumatoid [facility] of arthritis [facility] (73321) External cause Other no information no information ITZ OD GERS Not Available codes: Place transport , (74601) of occurrence vehicle as the (3 sources.) place of occurrence of the external cause Translations: [ ACCIDENT IN HOME] Other Pain in joint, Episodic Completed ITZ ODGERS Not Available non-traumatic ankle and foot , (25621) joint disorders (1 source.) Spondylosis; Spinal Episodic Completed MOO SHAY Not A vailable intervertebral stenosis in , (92419) disc cervical disorders; region other back problems (1 source.) Sprains and Sprain of Episodic Completed ITZ ODGERS Not Av ailable strains (1 ankle, , (17365) source.) unspecified site Procedures The data below is from unstructured sourcesNo known history of procedures.No known history of procedures.No known history of procedures. Immunizations No Information Results Test Name Value Interpretation Reference Range Date Time Fa cility (Normalized) (Normalized) (Medline Reference) No panel information on 2019-03-24 Albumin BCG dye 4.7 (no code) 03-24-2019 Hospital [Mass/Vol] 03:40-0500 [facility] [address] [place] [address] ([id number]) ALP [Catalytic 73 U/L (no code) 44 - 147 U/L 03-24-2019 Hosp ital activity/Vol] 03:40-[address] ([address]) ALT [Catalytic 27 U/L (no code) 4 - 40 U/L 03-24-2019 Hospit al activity/Vol] 03:40-[address] (612[address]) Anion gap 15 mmol/L (H) 3 - 11 mmol/L 03-24-2019 Hospital [Moles/Vol] 03:40-[address] ([address]) AST [Catalytic 26 U/L (no code) 10 - 34 U/L 03-24-2019 Hospi padilla activity/Vol] 03:40 [facility] (04742) Bilirubin 0.6 mg/dL (no code) 0.1 - 1.2 mg/dL 03-24-2019 Hospit al [Mass/Vol] 03:40 [facility] (37683) Calcium 9.8 mg/dL (no code) 8.5 - 10.2 mg/dL 03-24-2019 Hospi padilla [Mass/Vol] 03:40 [facility] (52433) Chloride 105 mmol/L (no code) 95 - 106 mmol/L 03-24-2019 Hospi padilla [Moles/Vol] 03:40 [facility] () Creatinine 0.82 mg/dL (no code) 03-24-2019 Hospital [Mass/Vol] 03:40 [facility] () GFR/1.73 sq 70 (no code) 90 - 120 03-24-2019 Hospital M.predicted MDRD mL/min/{1.73_m2} mL/min/{1.73_m2} 03:40 [facility] of (S/P/Bld) [Vol [facility] rate/Area] (81288) Globulin (S) 2.3 g/dL (no code) 2 - 3.5 g/dL 03-24-2019 Hospit al [Mass/Vol] 03:40 [facility] () Glucose 97 mg/dL (no code) 60 - 125 mg/dL 03-24-2019 Hospita l [Mass/Vol] 03:40050 [facility] (66243) HCO3 (P) 26 (no code) 03-24-2019 Hospital [Moles/Vol] 03:40 [facility] (64966) Osmolality Calc 296 (H) 03-24-2019 Hospital [Osmolality] 03:40 [facility] (99083) Potassium 4.5 mmol/L (no code) 3.7 - 5.2 mmol/L 03-24-2019 Hosp ital [Moles/Vol] 03:400500 [facility] (15870) Protein 7.0 g/dL (no code) 6.4 - 8.3 g/dL 03-24-2019 Hospita l [Mass/Vol] 03:400500 [facility] (00506) Sodium 141 mmol/L (no code) 135 - 145 mmol/L 03-24-2019 Hosp ital [Moles/Vol] 03:400500 [facility] (72607) Urea nitrogen 26 mg/dL (H) 7 - 20 mg/dL 03-24-2019 Hospi padilla [Mass/Vol] 03:400500 [facility] (51215) No panel information on 2018-09-08 Anion gap 12 mmol/L (no code) 3 - 11 mmol/L 09-08-2018 Hospital [Moles/Vol] 09:45-0400 [facility] (32017) Calcium 9.8 mg/dL (no code) 8.5 - 10.2 mg/dL 09-08-2018 Hospi padilla [Mass/Vol] 09:45-0400 [facility] (55430) Chloride 106 mmol/L (no code) 95 - 106 mmol/L 09-08-2018 Hospi padilla [Moles/Vol] 09:45-0400 [facility] (74234) Cholesterol 193 mg/dL (no code) 180 - 200 mg/dL 09-08-2018 Hosp ital [Mass/Vol] 09:450400 [facility] (90515) Cholesterol in 44 mg/dL (no code) 09-08-2018 Hospital HDL [Mass/Vol] 09:450400 [facility] (37542) Cholesterol in 123 mg/dL (H) 0 - 100 mg/dL 09-08-2018 Hos pital LDL [Mass/Vol] 09:450400 [facility] (42228) Cholesterol in 26 mg/dL (no code) 09-08-2018 Hospital VLDL [Mass/Vol] 09:450400 [facility] (12447) Cholesterol.tota 4.4 {ratio} (no code) 09-08-2018 Hospital l/Cholesterol in 09:450400 [facility] of HDL [Mass ratio] [facility] (20437) Creatinine 0.76 mg/dL (no code) 09-08-2018 Hospital [Mass/Vol] 09: [facility] (16885) GFR/1.73 sq 76 (no code) 90 - 120 09-08-2018 Hospital M.predicted MDRD mL/min/{1.73_m2} mL/min/{1.73_m2} 09: [facility] of (S/P/Bld) [Vol [facility] rate/Area] (31903) Glucose 90 mg/dL (no code) 60 - 125 mg/dL 09-08-2018 Hospita l [Mass/Vol] 09: [facility] (42652) HCO3 (P) 26 (no code) 09-08-2018 Hospital [Moles/Vol] 09:45 [facility] (81123) Osmolality Calc 291 (no code) 09-08-2018 Hospital [Osmolality] 09: [facility] (66198) Potassium 4.5 mmol/L (no code) 3.7 - 5.2 mmol/L 09-08-2018 Hosp ital [Moles/Vol] 09:45 [facility] (47832) Sodium 139 mmol/L (no code) 135 - 145 mmol/L 09-08-2018 Hosp ital [Moles/Vol] 09:45 [facility] (72740) Triglyceride 132 mg/dL (no code) 0 - 150 mg/dL 09-08-2018 Hospi padilla [Mass/Vol] 09:45 [facility] (86592) Urea nitrogen 26 mg/dL (H) 7 - 20 mg/dL 09-08-2018 Hospi padilla [Mass/Vol] 09:45 [facility] (41700) No panel information on 2018-03-15 Skein Winding Operator Cyto Comment (no code) 03-15-2018 [facility] (0 0000) stain Nom 12:16-0500 (Cvx/Vag) [ID] Cytology report Comment (no code) 03-15-2018 [facility] (0 0000) Cyto stain.thin 12: prep Doc (Cvx/Vag) Microscopic . (no code) 03-15-2018 [facility] ([id number] ) observation 12: Other stain Nom (Unsp spec) Note: Comment (no code) 03-15-2018 [facility] ([id number] ) 12:160500 Pathology report Comment (no code) 03-15-2018 [facility] ( 89771) final diagnosis 12: Narrative QC reviewed by: Comment (no code) 03-15-2018 [facility] (0 0000) 12: Statement of Comment (no code) 03-15-2018 [facility] (0000 0) adequacy Cyto 12: stain (Cvx/Vag) [Interp] No panel information on 2018-03-13 HPV no information (no code) 03-13-2018 [facility] (00 000) 16+18+31+33+35+3 08:39-0400 9+45+51+52+56+58 +59+66+68 DNA Probe+sig amp Ql (Cvx) No panel information on 2018-03-09 Albumin mass 4.5 g/dL (no code) 3.4 - 5.4 g/dL 03-09-2018 Hosp ital conc 10: [facility] (16031) ALP enzyme 79 U/L (no code) 44 - 147 U/L 03-09-2018 Hospital act/vol 10: [facility] (69230) ALT enzyme 28 U/L (no code) 4 - 40 U/L 03-09-2018 Hospital act/vol 10: [facility] (90903) Anion gap 3 15 mmol/L (H) 3 - 11 mmol/L 03-09-2018 Hospit al molar conc 10: [facility] (45395) AST enzyme 28 U/L (no code) 10 - 34 U/L 03-09-2018 Hospital act/vol 10: [facility] (00460) Bilirubin Ql (U) 0.6 (no code) 03-09-2018 Hospital 10: [facility] (64024) Calcium mass 9.8 mg/dL (no code) 8.5 - 10.2 mg/dL 03-09-2018 Ho spital conc 10: [facility] (24472) Chloride molar 105 mmol/L (no code) 95 - 106 mmol/L 03-09-2018 Hospital conc 10: [facility] (52071) Cholesterol in 52 mg/dL (no code) 03-09-2018 Hospital HDL mass conc 10: [facility] (02554) Cholesterol in 147 mg/dL (H) 0 - 100 mg/dL 03-09-2018 Hos pital LDL mass conc 10: [facility] (07157) Cholesterol in 26 mg/dL (no code) 03-09-2018 Hospital VLDL mass conc 10: [facility] (53261) Cholesterol mass 225 mg/dL (no code) 180 - 200 mg/dL 03-09-2018 Hospital conc 10: [facility] (39365) Cholesterol.tota 4.3 {ratio} (no code) 03-09-2018 Hospital l/Cholesterol in 10: [facility] HDL mass ratio [facility] (45863) CO2 molar conc 26 mmol/L (no code) 23 - 29 mmol/L 03-09-2018 Ho spital 10: [facility] (38421) Creatinine mass 0.74 mg/dL (no code) 03-09-2018 Hospital conc 10: [facility] (33202) GFR/1.73 sq M 79 (no code) 90 - 120 03-09-2018 Hospital predicted among mL/min/{1.73_m2} mL/min/{1.73_m2} 10: [facility] of non-blacks MDRD [facility] vol rate/area (38088) (S/P/Bld) Globulin 2.3 g/dL (no code) 2 - 3.5 g/dL 03-09-2018 Hospital Calculated mass 10: [facility] of conc (S) [facility] (51371) Glucose mass 95 mg/dL (no code) 60 - 125 mg/dL 03-09-2018 Hosp ital conc 10: [facility] (00723) Osmolality 294 mosm/kg (no code) 275 - 295 03-09-2018 Hospital mosm/kg 10: [facility] (76036) Potassium molar 4.6 mmol/L (no code) 3.7 - 5.2 mmol/L 03-09-2018 Hospital conc 10: [facility] (75278) Protein mass 6.8 g/dL (no code) 6.4 - 8.3 g/dL 03-09-2018 Hosp ital conc 10: [facility] (54803) Sodium molar 141 mmol/L (no code) 135 - 145 mmol/L 03-09-2018 H ospital conc 10: [facility] (96755) Triglyceride 129 mg/dL (no code) 0 - 150 mg/dL 03-09-2018 Hospi padilla mass conc 10: [facility] (13024) Urea nitrogen 22 mg/dL (no code) 7 - 20 mg/dL 03-09-2018 Hospi padilla mass conc 10: [facility] (15157) No panel information on 2017-01-19 Skein [employer] Cyto Comment (no code) 01-19-2017 Not Availa ble stain Nom 10: (54443) (Cvx/Vag) [ID] Cytology report Comment (no code) 01-19-2017 Not Availa ble Cyto stain.thin 10:0 (44306) prep Doc (Cvx/Vag) Microscopic . (no code) 01-19-2017 Not Available observation 10: (95721) Other stain Nom (Unsp spec) Note: Comment (no code) 01-19-2017 Not Available 10:0 (50740) Pathology report Comment (no code) 01-19-2017 Not Avail able final diagnosis 10: (95034) Narrative QC reviewed by: Comment (no code) 01-19-2017 Not Availa ble 10:0 (87294) Statement of Comment (no code) 01-19-2017 Not Available adequacy Cyto 10: (74674) stain (Cvx/Vag) [Interp] No panel information on 2017-01-14 Albumin BCG dye 4.4 (no code) 01-14-2017 Not Availa ble [Mass/Vol] 10: (01079) ALP [Catalytic 90 U/L (no code) 44 - 147 U/L 01-14-2017 Not Available activity/Vol] 10: (13600) ALT [Catalytic 20 U/L (no code) 4 - 40 U/L 01-14-2017 Not Av ailable activity/Vol] 10: (98117) Anion gap 12 mmol/L (no code) 3 - 11 mmol/L 01-14-2017 Not Avai lable [Moles/Vol] : (24812) AST [Catalytic 22 U/L (no code) 10 - 34 U/L 01-14-2017 Not A vailable activity/Vol] : (52825) Bilirubin 0.7 mg/dL (no code) 0.1 - 1.2 mg/dL 01-14-2017 Not Av ailable [Mass/Vol] : (32896) Calcium 9.7 mg/dL (no code) 8.5 - 10.2 mg/dL 01-14-2017 Not A vailable [Mass/Vol] : (64273) Chloride 103 mmol/L (no code) 95 - 106 mmol/L 01-14-2017 Not A vailable [Moles/Vol] : (18680) Creatinine 0.75 mg/dL (no code) 01-14-2017 Not Available [Mass/Vol] 10: (34708) GFR/1.73 sq 78 (no code) 90 - 120 01-14-2017 Not Availa ble M.predicted MDRD mL/min/{1.73_m2} mL/min/{1.73_m2} : (29783) (S/P/Bld) [Vol rate/Area] Globulin (S) 2.4 g/dL (no code) 2 - 3.5 g/dL 01-14-2017 Not Av ailable [Mass/Vol] 10:000400 (43814) Glucose 90 mg/dL (no code) 60 - 125 mg/dL 01-14-2017 Not Stefanie ilable [Mass/Vol] 10:0400 (60131) HCO3 (P) 29 (no code) 01-14-2017 Not Available [Moles/Vol] 10:000400 (18307) Osmolality Calc 292 (no code) 01-14-2017 Not Availa ble [Osmolality] 10:0 (60335) Potassium 4.1 mmol/L (no code) 3.7 - 5.2 mmol/L 01-14-2017 Not Available [Moles/Vol] 10:0400 (28911) Protein 6.8 g/dL (no code) 6.4 - 8.3 g/dL 01-14-2017 Not Stefanie ilable [Mass/Vol] 10:0 (20935) Sodium 140 mmol/L (no code) 135 - 145 mmol/L 01-14-2017 Not Available [Moles/Vol] 10:0400 (27167) Urea nitrogen 22 mg/dL (no code) 7 - 20 mg/dL 01-14-2017 Not A vailable [Mass/Vol] 10:0400 (73409) No panel information on 2016-07-08 Anion gap 16 mmol/L (H) 3 - 11 mmol/L 07-08-2016 Not Avai lable [Moles/Vol] 10:0500 (07375) Calcium 9.7 mg/dL (no code) 8.5 - 10.2 mg/dL 07-08-2016 Not A vailable [Mass/Vol] 10:0500 (59320) Chloride 105 mmol/L (no code) 95 - 106 mmol/L 07-08-2016 Not A vailable [Moles/Vol] 10:0500 (96187) Creatinine 0.81 mg/dL (no code) 07-08-2016 Not Available [Mass/Vol] 10:050500 (59635) GFR/1.73 sq 71 (no code) 90 - 120 07-08-2016 Not Availa ble M.predicted MDRD mL/min/{1.73_m2} mL/min/{1.73_m2} 10:0500 (42073) (S/P/Bld) [Vol rate/Area] Glucose 94 mg/dL (no code) 60 - 125 mg/dL 07-08-2016 Not Stefanie ilable [Mass/Vol] 10:0500 (74843) HCO3 (P) 26 (no code) 07-08-2016 Not Available [Moles/Vol] 10:0500 (82309) Osmolality Calc 296 (H) 07-08-2016 Not Availa ble [Osmolality] 10:050 (62057) Potassium 4.5 mmol/L (no code) 3.7 - 5.2 mmol/L 07-08-2016 Not Available [Moles/Vol] 10: (31557) Sodium 142 mmol/L (no code) 135 - 145 mmol/L 07-08-2016 Not Available [Moles/Vol] 10:0500 (38432) Urea nitrogen 22 mg/dL (no code) 7 - 20 mg/dL 07-08-2016 Not A vailable [Mass/Vol] 10:0500 (87074) Vital Signs The data below is from unstructured sources Vital Response Date/Time Temperature (Fahrenheit) 97.4 degree s F (97.6 - 99.5) 09/06/2015 12:51pm Temperature (Calculated Celsius) 36. 98265 degrees C (36.4 - 37.5) 09/06/2015 12:51pm Temperature Source Temporal 09/06/2015 12:51pm Pulse Rate (adult) 64 bpm (60 - 90) 09/06/2015 12:51pm Respiratory Rate 20 bpm (12 - 24) 09/06/2015 12:51pm O2 Sat by Pulse Oximetry 96 % (88 - 100) 09/06/2015 12:51pm Blood Pressure 175/84 mm Hg 09/06/2015 12:51pm Blood Pressure Mean 114 mm Hg 09/06/2015 12:51pm Pain Pain Intensity 8 2015 12:51pm Height (Feet) 5 feet 12:51pm Height (Inches) 2 inches 09/06/2015 12:51pm Height (Calculated Centimeters) 157. 514724 cm 09/06/2015 12:51pm Weight (Pounds) 170 pounds 09/06/2015 12:51pm Weight (Calculated Grams) 97806.704 gm 09/06/2015 12:51pm Weight (Calculated Kilograms) 77.110 704 kilograms 09/06/2015 12:51pm Calculated BMI 31.09 12:51pm Vital Response Date/Time Pulse Rate (adult) 64 bpm (60 - 90) 02/09/2015 12:04am Respiratory Rate 16 bpm (12 - 24) 02/09/2015 12:04am O2 Sat by Pulse Oximetry 94 % (88 - 100) 02/09/2015 12:04am Blood Pressure 103/44 mm Hg 02/09/2015 12:04am Blood Pressure Mean 63 mm Hg 02/09/2015 12:04am Pain Pain Intensity 8 2014 12:04am Height (Feet) 5 feet 05/2014 12:04am Height (Inches) 2 inches 02/09/2015 12:04am Height (Calculated Centimeters) 157. 111185 cm 02/09/2015 12:04am Weight (Pounds) 170 pounds 02/09/2015 12:04am Weight (Calculated Kilograms) 77.110 704 kilograms 02/09/2015 12:04am Calculated BMI 31.09 05/2014 12:04am No known vital signs results. Interventions No Information Plan of Treatment Normalized Care Care Detail Care Activity Date Care Provider F acility Activity Patient encounter no information 07-13-2018 Fazal DUNLAP Not Available (73162) Patient encounter no information 07-27-2018 Fazal DUNLAP Not Available (42083) Goals No Information Social History No Information Functional Status The data below is from unstructured sourcesNo functional status results.No functional status results.No functional status results.No functional status results.No functional status results. Mental Status No Information Encounters Encounter Normalized Encounter Encounter Diagnosis Care Provi sergio Organization Date Type 05-04-2012 Emergency department no information no name (no ed ne) no organization name - patient visit (no phone) 05-04-2012 03-09-2018 Patient encounter no information no name (no phone) no organization name - (no phone) 03-10-2018 NEGATED Patient encounter no information no name (no phone) no organization name 03-09-2018 (no phone) - 03-10-2018 02-13-2018 Patient encounter no information no name (no phone) no organization name - (no phone) 02-14-2018 06-09-2019 Patient encounter no information no name (no phone) no organization name - procedure (no phone) 06-09-2019 03-24-2019 Patient encounter no information no name (no phone) no organization name - procedure (no phone) 03-24-2019 09-08-2018 Patient encounter no information no name (no phone) no organization name - procedure (no phone) 09-09-2018 09-08-2018 Patient encounter no information no name (no phone) no organization name - procedure (no phone) 09-09-2018 07-27-2018 Patient encounter no information no name (no phone) no organization name procedure (no phone) 03-09-2018 Patient encounter no information no name (no phone) no organization name - procedure (no phone) 03-10-2018 02-13-2018 Patient encounter no information no name (no phone) no organization name - procedure (no phone) 02-14-2018 07-08-2017 Patient encounter no information no name (no phone) no organization name - procedure (no phone) 07-09-2017 01-14-2017 Patient encounter no information no name (no phone) no organization name procedure (no phone) 01-14-2017 Patient encounter no information no name (no phone) no organization name - procedure (no phone) 01-15-2017 07-12-2016 Patient encounter no information no name (no phone) no organization name procedure (no phone) 07-08-2016 Patient encounter no information no name (no phone) no organization name - procedure (no phone) 07-09-2016 07-08-2016 Patient encounter no information no name (no phone) no organization name - procedure (no phone) 07-09-2016 01-11-2016 Patient encounter no information no name (no phone) no organization name procedure (no phone) 09-01-2014 Patient encounter no information no name (no phone) no organization name - procedure (no phone) 09-13-2014 08-12-2013 Patient encounter no information no name (no phone) no organization name procedure (no phone) 06-07-2013 Patient encounter no information no name (no phone) no organization name - procedure (no phone) 06-07-2013 06-03-2013 Patient encounter no information no name (no phone) no organization name procedure (no phone) 03-18-2013 Patient encounter no information no name (no phone) no organization name - procedure (no phone) 03-23-2013 12-19-2011 Patient encounter no information no name (no phone) no organization name - procedure (no phone) 12-26-2011 no information Encounter for general no name (no phone) no o rganization name adult medical (no phone) examination with abnormal findings NEGATED no information Routine general no name (no phone) no organization name medical examination at (no phone) a health care facility no information Pre-operative no name (no phone) no organiza tion name examination, (no phone) unspecified Medical Equipment No Information Payers Normalized Payer Value Medicare no information Advance Directives Directive Response Recor ded Date/Time Advance Directives Yes 0 09/06/15 12:55pm Health Care Power of Transfer And Pumphouse Operator Chief Yes 09/06/15 12:55pm Organ Donor Yes 09/06/15 12:55pm Resuscitation Status Full Code 09/06/15 12:55pm Directive Response Recor ded Date/Time Advance Directives Yes 1 12:46am Health Care Power of Transfer And Pumphouse Operator Chief Yes 02/09/15 12:46am Organ Donor Yes 02/09/15 12:46am Resuscitation Status Full Code 02/09/15 12:46am Directive Response Recor ded Date/Time Advance Directives Yes 0 06/07/13 8:13am Health Care Power of Transfer And Pumphouse Operator Chief Yes 06/07/13 8:13am Organ Donor Yes 06/07/13 8:13am Discharge Instructions No hospital discharge instructions.No hospital discharge instructions.No hospital discharge instructions. Additional Source Comments This clinical document has been generated using [employer] software that has been certified by the Office of the National Coordinator for Health Information Technology (ONC 15.99.04.3023.Diam.[id number]) and the National Committee for Road Grader Operator (NCQA, as an eMeasure certified technology). FOR RECORDS PERTAINING TO PATIENTS WHO ARE OR HAVE BEEN ENROLLED IN A CHEMICAL D EPENDENCY/SUBSTANCE ABUSE PROGRAM, SOME INFORMATION MAY BE OMITTED. This clinica l summary was aggregated from multiple sources. Caution should be exercised in using it in the provision of clinical care. This summary normalizes information from multiple sources, and as a consequence, information in this document may ma terially change the coding, format and clinical context of patient data. In aurora tion, data may be omitted in some cases. CLINICAL DECISIONS SHOULD BE BASED ON T HE PRIMARY CLINICAL RECORDS. [facility]. provides no warranty or guara ntee of the accuracy or completeness of information in this document.The followi ng information is based on time limited clinical information
[2019-09-03] MEDS ORDERED: NS IV 1000 ML 1,000 ML IV SCH (15:13)
[2019-09-03 15:20] LABS: BASOPHILS % (AUTO) 1 % (0-10); EOSINOPHILS # (AUTO) 0.2 10^3/uL (0.0-0.3); EOSINOPHILS % (AUTO) 4 % (0-10); HEMATOCRIT 21 % (35-52); HEMOGLOBIN 7.1 G/DL (11.5-16.0); LYMPHOCYTES % (AUTO) 27 % (12-44); MEAN CORPUSCULAR HEMOGLOBIN 33 PG (25-34); MEAN CORPUSCULAR HGB CONC 34 G/DL (32-36); MEAN CORPUSCULAR VOLUME 99 FL (80-99); MEAN PLATELET VOLUME 9.8 FL (7.4-10.4); MONOCYTES # (AUTO) 0.5 X 10^3 (0.0-1.0); MONOCYTES % (AUTO) 12 % (0-12); NEUTROPHILS # (AUTO) 2.1 X 10^3 (1.8-7.8); NEUTROPHILS % (AUTO) 56 % (42-75); PLATELET COUNT 278 10^3/uL (130-400); WHITE BLOOD COUNT 3.7 10^3/uL (4.3-11.0)
[2019-09-03] MEDS ORDERED: CELE-63 PO (15:25)
--- NOTE | 2019-09-03 15:26 | ED General ---
General Chief Complaint: General Problems/Pain Stated Complaint: ABNORMAL LABS Source of Information: Patient Exam Limitations: No Limitations History of Present Illness Date Seen by Provider: Sep 03, 2019 Time Seen by Provider: 14:58 Initial Comments PT ARRIVES VIA POV FROM HOME STATES SHE HAS HAD PROGRESSIVE WEAKNESS AND SHORTNESS OF BREATH WITH EXERTION FOR THE LAST FEW WEEKS, AND HAS BEEN MUCH WORSE FOR THE LAST WEEK STATES SHE GETS SO SHORT OF BREATH AND SHE NEARLY PASSES OUT WITH MINIMAL EXERTION ( PT IS NORMALLY VERY ACTIVE ) STATES SHE DOES GET A LITTLE SWEATY WITH MINIMAL EXERTION STATES HER HEART POUNDS AND HER HEAD SWIMS WITH MINIMAL EXERTION NO CHEST PAIN NO SWELLING IN LEGS/FEET OR PAIN IN CALVES NO COUGH, FEVER OR RECENT ILLNESS HAS HAD NAUSEA, BUT NO VOMITING OR DIARRHEA NO ABDOMINAL PAIN NO BLACK/BLOODY/TARRY STOOLS APPETITE HAS BEEN NORMAL. WAS SEEN AT DR SHAY OFFICE IN A "DRIVE THRU" VISIT ON Friday08/31/19 FOR THIS PROBLEM, AND WAS TESTED FOR FLU AND STREP--BOTH NEGATIVE. HAD COVID TESTING DONE AT [facility] ON FRIDAY AND IT WAS NEGATIVE HAD LAB DONE TODAY AT [facility], AND WAS CALLED WITH TEST RESULTS THIS AFTERNOON--WAS TOLD HER HGB WAS 7, AND WAS INFORMED BY DR. SHAY OFFICE TO COME TO ER. NO HISTORY OF ANEMIA PT DOES NOT TAKE ASPIRIN, BUT WAS STARTED ON CELEBREX A COUPLE OF MONTHS AGO FOR GENERALIZED ARTHRITIS PAIN, HAD BEEN ON DICLOFENAC FOR MANY YEARS AND RECENTLY SWITCHED TO CELEBREX HAS BEEN DX WITH RHEUMATOID ARTHRITIS, BUT STATES IT HAS BEEN IN REMISSION FOR YEARS, AND HAS NOT BEEN ON ANY STEROIDS OR DMARD MEDICATION FOR IT HAS CHRONIC NECK AND BACK PAIN--HAS HAD C-SPINE FUSION IN THE PAST. PCP: DR. SHAY Allergies and Home Medications Allergies Coded Allergies: Nitesh Known Allergies (Verified Allergy, Unknown, 12/27/05) Home Medications Fluoxetine Hcl 20 Mg Capsule, 1 EACH PO DAILY, (Reported) Moexipril Hcl 15 Mg Tablet, 1 EACH PO DAILY WITH A MEAL, (Reported) Ondansetron 4 Mg Tab.rapdis, 4 MG PO Q6H PRN for NAUSEA/VOMITING Prescribed by: MAL SERRANO on 02/09/15 0350 Spironolactone 100 Mg Tablet, 100 MG PO DAILY, (Reported) Patient Home Medication List Home Medication List Reviewed: Yes Review of Systems Review of Systems Constitutional: see HPI, diaphoresis, dizziness, fever, malaise, weakness EENTM: no symptoms reported; No ear pain, No nose congestion, No throat pain Respiratory: see HPI; No cough; dyspnea on exertion; No phlegm; short of breath; No wheezing Cardiovascular: see HPI; No chest pain, No edema; palpitations, syncope (NEAR- SYNCOPE) Gastrointestinal: see HPI; No abdominal pain, No constipation, No diarrhea, No hematemesis, No loss of appetite, No melena; nausea; No vomiting Genitourinary: no symptoms reported Musculoskeletal: see HPI (CHRONIC GENERALIZED PAIN ) Skin: no symptoms reported Psychiatric/Neurological: Headache; Denies Numbness, Denies Paresthesia, Denies Seizure, Denies Tingling, Denies Weakness Hematologic/Lymphatic: See HPI, Anemia Immunological/Allergic: no symptoms reported Past Hyfasdg-Rpxxsp-Bfnozb Hx Past Med/Social Hx: Reviewed and Corrections made Patient Social History Alcohol Use: Occasionally Uses Recreational Drug Use: No Smoking Status: Former Smoker (2 PPD, QUIT 1994) Type Used: Cigarettes Recent Foreign Travel: No Contact w/Someone Who Travel: No Immunizations Up To Date Date of Influenza Vaccine: Feb 22, 2013 Seasonal Allergies Seasonal Allergies: Yes Past Medical History Surgeries: Yes (SEE BELOW) Adenoidectomy, Appendectomy, Gallbladder, Hysterectomy, Oophorectomy, Orthopedic, Tonsillectomy Respiratory: Yes Asthma Cardiac: Yes Chronic Edema/Swelling, Hypertension Neurological: No Reproductive Disorders: 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) 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, 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 Genitourinary: No Gastrointestinal: Yes Polyps Musculoskeletal: Yes (CHRONIC NECK PAIN--S/P CERVICAL SPINE OEWOTC-W7-O0-C6) Degenerate Disk Disease, Osteoporosis, Arthritis, Rheumatoid Arthritis, Chronic Back Pain, Fractures Endocrine: No HEENT: No Cancer: Yes Cervical Did You Recieve Any Treatments: Yes (HYSTERCTOMY) What Type of Treatment Did You: Surgical Intervention Psychosocial: No Integumentary: No Blood Disorders: No Family Medical History No Pertinent Family Hx PSH: -APPENDECTOMY AGE 15 -TONSILLECTOMY/ADENOIDECTOMY -HYSTERECTOMY 1987 FOR CERVICAL CANCER -BSO 1994--DUE TO MOTHER WITH OVARIAN CANCER -CHOLECYSTECTOMY 2005 -RIGHT WRIST/FOREARM FX/ORIF -CERVICAL SPINE FUSION--G7-W4-E3--DR. ANA MARÍA GAINES -EGD/COLONSCOPIES Physical Exam Vital Signs Vital Signs - First Documented 09/03/19 14:52 Temp 37.0 Pulse 61 Resp 18 B/P (MAP) 170/80 (110) Pulse Ox 97 O2 Delivery Room Air Capillary Refill : Height, Weight, BMI Height: 5'2" Weight: 170lbs. oz. 77.510288ka; 31.09 BMI Method:Stated General Appearance: No Apparent Distress, WD/WN HEENT: PERRL/EOMI, Pale Conjunctivae (L), Pale Conjunctivae (R) Neck: Normal Inspection Respiratory: Normal Breath Sounds, No Accessory Muscle Use, No Respiratory Distress Cardiovascular: Regular Rate, Rhythm, No Edema, No JVD, No Murmur, Normal Peripheral Pulses Gastrointestinal: Non Tender, Soft Rectal: Normal Exam, Normal Rectal Tone, Heme Negative Stool (NO STOOL IN VAULT), Hemorrhoids; No Mass, No Tenderness Back: No CVA Tenderness Extremity: Normal Inspection, No Pedal Edema Neurologic/Psychiatric: Alert, Oriented x3, No Motor/Sensory Deficits, Normal Mood/Affect, release specialist II-XII Norm as Tested Skin: Warm/Dry; No Ecchymosis; Pallor; No Petechia, No Rash Progress/Results/Core Measures Suspected Sepsis SIRS Temperature: Pulse: Respiratory Rate: Laboratory Tests 09/03/19 15:08: White Blood Count 3.7L Blood Pressure / Mean: Laboratory Tests 09/03/19 15:08: Creatinine 0.75, INR Comment 1.0, Platelet Count 278, Total Bilirubin 2.1H Results/Orders Lab Results Laboratory Tests Test 09/03/19 15:08 Range/Units White Blood Count 3.7 L 4.3-11.0 10^3/uL Red Blood Count 2.14 L 4.35-5.85 10^6/uL Hemoglobin 7.1 L 11.5-16.0 G/DL Hematocrit 21 L 35-52 % Mean Corpuscular Volume 99 80-99 FL Mean Corpuscular Hemoglobin 33 25-34 PG Mean Corpuscular Hemoglobin Concent 34 32-36 G/DL Red Cell Distribution Width 19.0 H 10.0-14.5 % Platelet Count 278 130-400 10^3/uL Mean Platelet Volume 9.8 7.4-10.4 FL Neutrophils (%) (Auto) 56 42-75 % Lymphocytes (%) (Auto) 27 12-44 % Monocytes (%) (Auto) 12 0-12 % Eosinophils (%) (Auto) 4 0-10 % Basophils (%) (Auto) 1 0-10 % Neutrophils # (Auto) 2.1 1.8-7.8 X 10^3 Lymphocytes # (Auto) 1.0 1.0-4.0 X 10^3 Monocytes # (Auto) 0.5 0.0-1.0 X 10^3 Eosinophils # (Auto) 0.2 0.0-0.3 10^3/uL Basophils # (Auto) 0.0 0.0-0.1 10^3/uL Prothrombin Time 14.1 12.2-14.7 SEC INR Comment 1.0 0.8-1.4 Activated Partial Thromboplast Time 27 24-35 SEC Sodium Level 140 135-145 MMOL/L Potassium Level 4.4 3.6-5.0 MMOL/L Chloride Level 107 98-107 MMOL/L Carbon Dioxide Level 23 21-32 MMOL/L Anion Gap 10 5-14 MMOL/L Blood Urea Nitrogen 22 H 7-18 MG/DL Creatinine 0.75 0.60-1.30 MG/DL Estimat Glomerular Filtration Rate > 60 BUN/Creatinine Ratio 29 Glucose Level 135 H 70-105 MG/DL Calcium Level 9.0 8.5-10.1 MG/DL Corrected Calcium 8.8 8.5-10.1 MG/DL Magnesium Level 1.9 1.6-2.4 MG/DL Total Bilirubin 2.1 H 0.1-1.0 MG/DL Aspartate Amino Transf (AST/SGOT) 28 5-34 U/L Alanine Aminotransferase (ALT/SGPT) 13 0-55 U/L Alkaline Phosphatase 75 40-136 U/L Total Creatine Kinase 61 29-168 U/L Creatine Kinase MB 1.5 <6.6 NG/ML Myoglobin 38.6 10.0-92.0 NG/ML Troponin I < 0.028 <0.028 NG/ML B-Type Natriuretic Peptide 89.2 <100.0 PG/ML Total Protein 6.7 6.4-8.2 GM/DL Albumin 4.3 3.2-4.5 GM/DL My Orders Orders - TIMOTHY NGUYEN DO Ed Iv/Invasive Line Start (09/03/19 14:58) Ekg Tracing (09/03/19 14:58) O2 (09/03/19 14:58) Monitor-Rhythm Ecg Trace Only (09/03/19 14:58) Chest 1 View, Ap/Pa Only (09/03/19 14:58) BNP (09/03/19 14:58) Cbc With Automated Diff (09/03/19 14:58) Comprehensive Metabolic Panel (09/03/19 14:58) Creatine Kinase (09/03/19 14:58) Creatine Kinase Mb (09/03/19 14:58) Magnesium (09/03/19 14:58) Protime With Inr (09/03/19 14:58) Partial Thromboplastin Time (09/03/19 14:58) Ua Culture If Indicated (09/03/19 14:58) Myoglobin Serum (09/03/19 14:58) Troponin I (09/03/19 14:58) Ed Iv/Invasive Line Start (09/03/19 15:13) Ns Iv 1000 Ml (Sodium Chloride 0.9%) (09/03/19 15:13) Pantoprazole Injection (Protonix Injecti (09/03/19 15:45) Red Cells Leukocytes Reduced (09/03/19 15:33) Type And Screen (09/03/19 15:33) Medications Given in ED Current Medications Medications Dose Ordered Sig/Stephan Route Start Time Stop Time Status Last Admin Dose Admin Pantoprazole 80 mg ONCE ONCE IV 09/03/19 15:45 09/03/19 15:46 DC 09/03/19 15:56 80 MG Vital Signs/I&O 09/03/19 09/03/19 14:52 16:13 Temp 37.0 Pulse 61 51 Resp 18 18 B/P (MAP) 170/80 (110) 157/59 Pulse Ox 97 95 O2 Delivery Room Air Capillary Refill : Progress Note : Progress Note UNEVENTFUL ER STAY VITALS STABLE PT ASYMPTOMATIC AT REST ECG Initial ECG Impression Date: Sep 03, 2019 Initial ECG Impression Time: 15:08 Initial ECG Rate: 63 Initial ECG Rhythm: Normal Sinus Initial ECG Impression: Nonspecific Changes Departure Communication (Admissions) 3794--SPOKE WITH DR. MATA, ACCEPTS PT FOR ADMIT 2301--SPOKE WITH DR. DILLARD FOR SURGERY CONSULT. Impression Primary Impression: Anemia Disposition: ADMITTED INPATIENT Condition: Stable Admissions Decision to Admit Reason: Admit from ER (General) Decision to Admit/Date: Sep 03, 2019 Time/Decision to Admit Time: 16:00 Departure-Patient Inst. Referrals: MOO SHAY MD (PCP/Family) Primary Care Physician TIMOTHY NGUYEN DO Sep 03, 2019 15:26
[2019-09-03 15:34] LABS: ALBUMIN 4.3 GM/DL (3.2-4.5); CHLORIDE 107 MMOL/L (98-107); POTASSIUM 4.4 MMOL/L (3.6-5.0); SODIUM 140 MMOL/L (135-145)
[2019-09-03 15:35] LABS: PROTHROMBIN TIME PATIENT 14.1 SEC (12.2-14.7)
[2019-09-03 15:36] LABS: GLUCOSE 135 MG/DL (70-105); TOTAL PROTEIN 6.7 GM/DL (6.4-8.2)
[2019-09-03 15:37] LABS: CARBON DIOXIDE 23 MMOL/L (21-32)
[2019-09-03 15:38] LABS: BILIRUBIN,TOTAL 2.1 MG/DL (0.1-1.0)
[2019-09-03 15:40] LABS: ALKALINE PHOSPHATASE 75 U/L (40-136); CREATININE SERUM 0.75 MG/DL (0.60-1.30); GFR ESTIMATED > 60
[2019-09-03 15:41] LABS: BUN/CREATININE RATIO 29
[2019-09-03 15:43] LABS: ALANINE AMINOTRANSFERASE 13 U/L (0-55); MAGNESIUM 1.9 MG/DL (1.6-2.4)
[2019-09-03 15:44] LABS: CREATINE KINASE 61 U/L (29-168)
[2019-09-03] MEDS ORDERED: PANTOPRAZOLE 40 MG (PROTONIX) VIAL IV ONE (15:45)
[2019-09-03 15:51] LABS: CREATINE KINASE MB 1.5 NG/ML (<6.6)
--- NOTE | 2019-09-03 15:51 | Diagnostic Imaging Report ---
INDICATION: Lightheadedness, dizziness, weakness COMPARISON: 02/09/2015 TECHNIQUE: Single frontal radiograph of the chest dated 09/03/2019 FINDINGS: The cardiac silhouette is enlarged, though stable. No significant pulmonary vascular congestion. The left lung is clear. The right lung is clear. No pleural effusion. No pneumothorax. Postsurgical changes within the cervical spine. Chronic appearing right 6th rib fracture. No acute osseous abnormality. IMPRESSION: Cardiomegaly without overt congestive heart failure. Dictated by: Dictated on workstation # [id number]
--- OUTSIDE RECORDS SUMMARY | 2019-09-03 16:18 | XMS REPORT | Continuity of Care Document ---
Demographics Preferred Language Unknown Marital Status Unknown Holiness Affiliation Unknown Race Unknown Ethnic Group Unknown [...] LOWER END OF [place] 09/07/2015 AGUAYO DO, JLUIETTE L Ot W01.0XXA FALL SAME LEV FROM [...] MAMMO-MALIGN NEOPLASM OF [place] 01/12/2016 LAURITA FAGAN, OMO L Ot M47.816 SPONDYLOSIS W/O MYELOPATHY OR RADICULOPA 01/12/2016 LAURITA FAGAN, MOO L Ot M85.89 OTH DISRD OF BONE DENSITY AND STRUCTURE, 01/16/2016 MOO SHAY MD Ot M47.816 SPONDYLOSIS W/O MYELOPATHY OR RADICULOPA 01/16/2016 LAURITA FAGAN, MOO L Ot M85.89 OTH DISRD OF BONE DENSITY AND STRUCTURE, 02/01/2016 MOO HSAY MD L Ot M47.816 SPONDYLOSIS W/O MYELOPATHY [...] ESSENT IAL (PRIMARY) HYPERTENSION 01/14/2017 W 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, UNSPECIFIED 01/14/2017 W L40.0 [...] ENCNTR SCREEN MAMMOGRAM FOR MALIGNANT NE 03/10/2018 MOO SHAY MD, Ot Z12.31 ENCNTR [...] MAMMOGRAM FOR MALIGNANT NE 07/27/2018 MOO SHAY MD, Ot Z12.31 ENCNTR SCREEN MAMMOGRAM FOR MALIGNANT NE 08/24/2018 MOO SHAY MD, Ot Z12.31 ENCNTR SCREEN MAMMOGRAM FOR MALIGNANT NE 09/08/2018 MOO SHAY W 272.4 OTHER AND UNSPECIFIED HYPERLIPIDEMIA 09/08/2018 MOO SHAY E78.5 HYPERLIPIDEMIA, UNSPECIFIED 09/08/2018 W 272.4 OTHE R AND UNSPECIFIED HYPERLIPIDEMIA 09/08/2018 W 401.0 AMANDA GNANT ESSENTIAL HYPERTENSION 09/08/2018 W E78.5 HYPE RLIPIDEMIA, UNSPECIFIED 09/08/2018 W I10 ESSENT IAL (PRIMARY) HYPERTENSION 09/08/2018 MOO SHAY W 272.4 OTHER AND UNSPECIFIED HYPERLIPIDEMIA 09/08/2018 MOO SHYA E78.5 HYPERLIPIDEMIA, UNSPECIFIED 09/03/2019 MOO SHAY MD, Ot V76.12 OTH SCREEN MAMMO-MALIGN NEOPLASM OF [place] 09/03/2019 MOO SHAY MD, Ot M47.816 SPONDYLOSIS W/O MYELOPATHY OR RADICULOPA 09/03/2019 MOO SHAY MD, Ot M85.89 OTH DISRD OF BONE DENSITY AND STRUCTURE, 09/03/2019 MOO SHAY MD, Ot Z12.31 ENCNTR SCREEN MAMMOGRAM FOR MALIGNANT NE 09/03/2019 MOO SHAY MD, Ot Z12.31 ENCNTR SCREEN MAMMOGRAM FOR MALIGNANT NE Procedures There is no data. Results Test [...] 0.6 mg/dL 0.2-1.2 TP 7.0 g/dL 6.0-8.3 Complete blood count (CBC) with automate d white blood cell (WBC) differential - 09/03/19 15:08 Blood leukocytes automated count (number/volume) 3.7 10*3/uL 4.3-11.0 Blood erythrocytes automated count (number/volume) 2.14 10*6/uL 4.35-5.85 Venous blood hemoglobin measurement (mass/volume) 7.1 g/dL 11.5-16.0 Blood hematocrit (volume fraction) 21 % 35-52 Automated erythrocyte mean corpuscular volume 99 [ foz_us] 80-99 Automated erythrocyte mean corpuscular h emoglobin (mass per erythrocyte) 33 pg 25-34 Automated erythrocyte mean corpuscular h emoglobin concentration measurement (mass/volume) 34 g/dL 32-36 Automated erythrocyte distribution width ratio 19. 0 % 10.0- 14.5 Automated blood platelet count (count/volume) 278 10*3/uL 130-400 Automated blood platelet mean volume measurement 9.8 [foz_us] 7.4-10.4 Automated blood neutrophils/100 leukocytes 56 % 42-75 Automated blood lymphocytes/100 leukocytes 27 % 12-44 Blood monocytes/100 leukocytes 12 % 0-12 Automated blood eosinophils/100 leukocytes 4 % 0-10 Automated blood basophils/100 leukocytes 1 % 0-10 Blood neutrophils automated count (number/volume) 2.1 10*3 1.8-7.8 Blood lymphocytes automated count (number/volume) 1.0 10*3 1.0-4.0 Blood monocytes automated count (number/volume) 0. 5 10*3 0.0-1.0 Automated eosinophil count 0.2 10*3/uL 0 .0-0.3 Automated blood basophil count (count/volume) 0.0 10*3/uL 0.0-0.1 Comprehensive metabolic panel - 09/03/19 15:08 Serum or plasma sodium measurement (moles/volume) 140 mmol/L 135-145 Serum or plasma potassium measurement (moles/volume) 4.4 mmol/L 3.6-5.0 Serum or plasma chloride measurement (moles/volume) 107 mmol/L 98-107 Carbon dioxide 23 mmol/L 21-32 Serum or plasma anion gap determination (moles/volume) 10 mmol/L 5-14 Serum or plasma urea nitrogen measurement (mass/volume ) 22 mg/dL 7-18 Serum or plasma creatinine measurement (mass/volume) 0.75 mg/dL 0.60-1.30 Serum or plasma urea nitrogen/creatinine mass ratio 29 NRG Serum or plasma creatinine measurement w ith calculation of estimated glomerular filtration rate > NRG Serum or plasma glucose measurement (mass/volume) 135 mg/dL 70-105 Serum or plasma calcium measurement (mass/volume) 9.0 mg/dL 8.5-10.1 Serum or plasma total bilirubin measurement (mass/volu me) 2.1 mg/dL 0.1-1.0 Serum or plasma alkaline phosphatase jaimee surement (enzymatic activity/volume) 75 U/L 40-136 Serum or plasma aspartate aminotransfera se measurement (enzymatic activity/volume) 28 U/L 5-34 Serum or plasma alanine aminotransferase measurement (enzymatic activity/volume) 13 U/L 0-55 Serum or plasma protein measurement (mass/volume) 6.7 g/dL 6.4-8.2 Serum or plasma albumin measurement (mass/volume) 4.3 g/dL 3.2-4.5 CALCIUM CORRECTED 8.8 mg/dL 8.5-10.1 PT panel in platelet poor plasma by coag ulation assay - 09/03/19 15:08 Prothrombin time (PT) in platelet poor plasma by coagu lation assay 14.1 s 12.2-14.7 INR in platelet poor plasma or blood by coagulation as say 1.0 0.8-1.4 Activated partial thromboplastin time (a PTT) in platelet poor plasma bycoagulation assay - 09/03/19 15:08 Activated partial thromboplastin time (a PTT) in platelet poor plasma bycoagulation assay 27 s 24-35 Magnesium - 09/03/19 15:08 Magnesium 1.9 mg/dL 1.6-2.4 Serum or plasma creatine kinase measurem ent (enzymatic activity/volume) - 09/03/19 15:08 Serum or plasma creatine kinase measurem ent (enzymatic activity/volume) 61 U/L 29-168 Serum or plasma creatine kinase MB measu rement (enzymatic activity/volume) - 09/03/19 15:08 Serum or plasma creatine kinase MB measu rement (enzymatic activity/volume) 1.5 ng/mL <6.6 Serum or plasma troponin i.cardiac measu rement (mass/volume) - 09/03/19 15:08 Serum or plasma troponin i.cardiac measurement (mass/v olume) < ng/mL <0.028 Myoglobin, serum - 09/03/19 15:08 Myoglobin, serum 38.6 ng/mL 10.0-92.0 Serum or plasma lithium measurement (mol es/volume) - 09/03/19 15:08 BNP PT 89.2 pg/mL <100.0 Encounters ACCT No. Visit Date/Time Discharge Status Pt. Type Provider Facility Loc./Unit Complaint [id number] 01/19/2017 09:08:00 Document Registration [id number] 07/27/2018 09:43:00 019 23:59:59 CLS Outpatient MOO SHAY MD [facility] RAD SCREEN [id number] 07/12/2016 09:27:00 017 23:59:59 CLS Outpatient MOO SHAY MD [facility] RAD SCREENING [id number] 01/11/2016 08:15:00 016 23:59:59 CLS Outpatient MOO SHAY MD [facility] RAD OSTEOPOROSIS [id number] 09/06/2015 12:43:00 016 14:32:00 DIS Emergency JULIETTE AGUAYO DO [facility] ER RIGHT ARM INJURY [id number] 02/08/2015 23:53:00 015 03:56:00 DIS Emergency MAL SERRANO MD [facility] ER SOA [id number] 09/01/2014 13:00:00 015 08:49:00 DIS Outpatient MOO SHAY MD [facility] REHAB LUMBAGO,DDD [id number] 09/06/2014 08:50:00 015 23:59:59 CLS Outpatient MOO SHAY MD [facility] RAD SCREENING [id number] 08/12/2013 07:23:00 014 23:59:59 CLS Outpatient MOO SHAY MD [facility] RAD SCREENING [id number] 06/07/2013 08:04:00 014 10:50:00 DIS Outpatient PARAM HELM MD [facility] SDC HX POLYPS [id number] 06/03/2013 07:24:00 014 23:59:59 CLS Outpatient PARAM HELM MD [facility] PREOP HX POLYPS [id number] 03/18/2013 11:15:00 013 14:09:00 DIS Outpatient TIRSO GAINES MD [facility] REHAB GENERALIZED MUS RU WEAKNESS S/P SURGERY [id number] 09/03/2019 16:00:[address] Inpatient KEISHA MATA MD [facility] 4TH ANEMIA [id number] 01/11/2016 08:13:00 Document Registration [id number] 01/11/2016 08:13:00 Document Registration [id number] 05/04/2012 15:05:00 Document Registration [id number] 12/19/2011 14:58:00 Document Registration [id number] 08/31/2019 16:15:00 08/31/2019 23:59 :00 DIS Outpatient MOO SHAY [id number] 06/09/2019 16:29:00 06/09/2019 23:59 :00 DIS Outpatient MOO SHAY [id number] 03/24/2019 09:05:00 03/24/2019 23:59: 00 DIS Outpatient MOO SHAY [id number] 03/24/2019 08:59:00 03/24/2019 23:59: 00 DIS Outpatient MOO SHAY [id number] 09/08/2018 10:36:00 09/08/2018 23:59: 00 DIS Outpatient MOO SHAY [id number] 03/09/2018 14:36:00 03/09/2018 23:59: 00 DIS Outpatient MOO SHAY [id number] 03/09/2018 10:03:00 03/09/2018 23:59: 00 DIS Outpatient MOO SHAY [id number] 02/13/2018 14:49:00 02/13/2018 23:59: 00 DIS Outpatient Joslyn Mari [id number] 07/08/2017 13:00:00 07/08/2017 23:59: 00 DIS Outpatient MOO SHAY [id number] 01/14/2017 11:03:00 01/14/2017 23:59: 00 DIS Outpatient CHINA SHAYHEL [id number] 07/08/2016 10:17:00 07/08/2016 23:59: 00 DIS Outpatient MOO SHAY [id number] 09/08/2018 08:50:00 Document Registration [id number] 03/09/2018 08:40:00 Document Registration [id number] 02/13/2018 09:30:00 Document Registration [id number] 07/08/2017 07:56:00 Document Registration [id number] 01/14/2017 08:15:00 Document Registration [id number] 07/08/2016 08:30:00 Document Registration [id number] 03/15/2018 12:08:00 Document Registration [id number] 03/16/2018 09:09:00 Document Registration
--- OUTSIDE RECORDS SUMMARY | 2019-09-03 16:18 | XMS REPORT ---
Author Author [facility] Organization [facility] Address [address] [address] Care Team Providers Care Barometers Calibrator Name Role Phone CHINA SHAYSHERRI Lindsey Unavailable [...] N ot Available (23 sources.) Agonists NAUSEA, ([id number]) UNKNOWN MA (23 Unclassified NKANo Known 12-27-2005 - no information MA RGARET Not Available sources.) Allergies MD LIANA ([id number]) Medications No Information Problems Active Problems Problem Normalized Date of Normalized Normalized Provider Fac ility Classification Problem(s) Problem Problem Problem Sta tus Onset/Resoluti Duration on Other Aftercare Episodic Active TIRSO Not Availabl e aftercare (2 following MD LIANA ([id number]) sources.) surgery of the musculoskeleta l system, NEC Mycoses (15 Candidiasis of Episodic Active [facility] sources.) skin and nail [facility] of Translations: [place] [ [place]ANDIDIASIS [place] ([address]) OF SKIN AND NAILS, CANDIDIASIS OF VULVA AND VAGINA, CANDIDIASIS OF VULVA AND VAGINA] Other Care involving Episodic Active MOO SHAY No t Available aftercare (5 other physical , (77016) sources.) therapy Chronic Chronic Chronic Active MOO SHAY Not Avai lable obstructive obstructive (95782) pulmonary pulmonary disease and disease, bronchiectasis unspecified (26 sources.) Translations: [ OBSTRUCTIVE CHRONIC BRONCHITIS, WITHOUT EXACERBATION, CHRONIC OBSTRUCTIVE PULMONARY DISEASE, UNSPECIFIED] Other Constipation, Episodic Active MAL Not Avai lable gastrointestin unspecified MD MAGGIE (57674) al disorders (2 sources.) Spondylosis; Degeneration Chronic Active MOOSHERRI SHAY N ot Available intervertebral of lumbar or , (60685) disc lumbosacral disorders; intervertebral other back disc problems (24 Translations: sources.) [ SPONDYLOSIS W/O MYELOPATHY OR RADICULOPA, OTHER CERVICAL DISC DEGENERATION, UNSPECIFIED CERVICAL REGION, DEGENERATION OF INTERVERTEBRAL DISC, SITE UNSPECIFIED] Other Encounter for Episodic Active MOOSHERRI SHAY Not Available screening for screening for , (12438) suspected malignant conditions neoplasm of (not mental vagina disorders or Translations: infectious [ SCREENING disease) (20 FOR MALIGNANT sources.) NEOPLASMS OF THE VAGINA, ENCNTR SCREEN MAMMOGRAM FOR MALIGNANT NE, OTH SCREEN MAMMO-MALIGN NEOPLASM OF [place]] Essential Essential Chronic Active MOOSHERRI SHAY Not Stefanie ilable hypertension (primary) (71984) (20 sources.) hypertension Translations: [ MALIGNANT ESSENTIAL HYPERTENSION, MALIGNANT ESSENTIAL HYPERTENSION, ESSENTIAL (PRIMARY) HYPERTENSION] Hemorrhoids (2 External Episodic Active PARAM HELM Not Available sources.) hemorrhoids MD (21352) without mention of complication Anxiety Generalized [facility] padilla disorders (20 anxiety [facility] of sources.) disorder [place] Translations: [facility] ([address]) [ GENERALIZED ANXIETY DISORDER] Disorders of Hyperlipidemia Chronic Active [facility] lipid , unspecified [facility] of metabolism (21 Translations: [place] sources.) [ OTHER AND County ([address]) UNSPECIFIED HYPERLIPIDEMIA , OTHER AND UNSPECIFIED HYPERLIPIDEMIA , HYPERLIPIDEMIA , UNSPECIFIED] Mood disorders Major Chronic Active [facility] pital (18 sources.) depressive [facility] affective [place] [facility] ([address] recurrent episode, in partial or unspecified remission Translations: [ MAJOR DEPRESSIVE DISORDER, RECURRENT EPISODE, UNSPECIFIED DEGREE, MAJOR DEPRESSIVE DISORDER, RECURRENT, UNSPECIFIED] Other Muscle Episodic Active TIRSO Not Available connective weakness MD LIANA (61362) tissue disease (generalized) (2 sources.) Fracture of Other Episodic Active JULIETTE AGUAYO , Not Stefanie ilable upper limb (4 intraarticular DO (30838) sources.) fracture of lower end of right radius, initial encounter for closed fracture 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[facility] of condition of [place] skin (14 [facility] ([address]80) sources.) Other bone Other Episodic Active [facility] Not Stefanie ilable disease and specified , (82765) musculoskeleta disorders of l deformities bone density (2 sources.) and structure, multiple sites Other and Personal Episodic Active PARAM HELM Not Avai lable unspecified history of , (55325) benign colonic polyps neoplasm (2 sources.) 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[facility] cervix (28 history of [facility] of sources.) malignant [place] neoplasm of [facility] (50207) cervix uteri Translations: [ PERSONAL HISTORY OF MALIGNANT NEOPLASM OF CERVIX UTERI, PERSONAL HISTORY OF MALIGNANT NEOPLASM OF CERVIX UTERI] Screening and Personal Episodic Active JULIETTE AGUAYO , Not A vailable history of history of DO (54430) mental health nicotine and substance dependence abuse codes (2 sources.) Other Psoriasis Chronic Active [facility] inflammatory vulgaris [facility] of condition of [place] skin (14 [place] ([address]) sources.) Rheumatoid Rheumatoid Chronic Active [facility] arthritis and arthritis [facility] of related [place] disease (4 [facility] (35863) sources.) Asthma (4 Unspecified Chronic Active [facility] sources.) asthma, [facility] of uncomplicated [facility] (65251) Osteoarthritis Unspecified [facility] Active [facility] (20 sources.) osteoarthritis [facility] of , unspecified [facility] (51483) Translations: [ OSTEOARTHROSIS , LOCALIZED, NOT SPECIFIED WHETHER PRIMARY OR SECONDARY, INVOLVING UNSPECIFIED SITE, OSTEOARTHROSIS , UNSPECIFIED WHETHER GENERALIZED OR LOCALIZED, INVOLVING UNSPECIFIED SITE] Past or Other Problems Problem Normalized Date of Normalized Normalized Provider Fac ility Classification Problem(s) Problem Problem Problem Sta tus Onset/Resoluti Duration on External cause Activity, no information no information ITZ OLIVER Not Available codes: MD jean-paul (11167) Unspecified (5 riding sources.) Translations: [ OTHER EXTERNAL CAUSE STATUS, OTHER EXTERNAL CAUSE STATUS] Unclassified Asthma no information no information [facility] (4 sources.) [facility] of [facility] (92214) External cause Fall on same no information no information DARBY العراقي Not Available codes: Fall (3 level from , (83558) sources.) slipping, tripping and stumbling without subsequent striking against object, initial encounter Translations: [ FALL NOS] Unclassified Major no information no information [facility] (10 sources.) depressive [facility] of disorder, [facility] (28599) Unclassified Other no information no information [facility] (4 sources.) rheumatoid [facility] of arthritis [facility] (80307) External cause Other no information no information ITZ OD GERS Not Available codes: Place transport , (31452) of occurrence vehicle as the (3 sources.) [address] of occurrence of the external cause Translations: [ ACCIDENT IN HOME] Other Pain in joint, Episodic Completed ITZ ODGERS Not Available non-traumatic ankle and foot , (17904) joint disorders (1 source.) Spondylosis; Spinal Episodic Completed MOO SHAY Not A vailable intervertebral stenosis in , (68961) disc cervical disorders; region other back problems (1 source.) Sprains and Sprain of Episodic Completed ITZ ODGERS Not Av ailable strains (1 ankle, , (30200) source.) unspecified site Procedures The data below is from unstructured sourcesNo known history of procedures.No known history of procedures.No known history of procedures. Immunizations No Information Results Test Name Value Interpretation Reference Range Date Time Fa cility (Normalized) (Normalized) (Medline Reference) No panel information on 2019-03-24 Albumin BCG dye 4.7 (no code) 03-24-2019 Hospital [Mass/Vol] 03:40-0500 [facility] [address] [place] [address] ([address]) ALP [Catalytic 73 U/L (no code) 44 - 147 U/L 03-24-2019 Hosp ital activity/Vol] 03:40-[address] ([address]) ALT [Catalytic 27 U/L (no code) 4 - 40 U/L 03-24-2019 Hospit al activity/Vol] 03:40-[address] ([address]) Anion gap 15 mmol/L (H) 3 - 11 mmol/L 03-24-2019 Hospital [Moles/Vol] 03:40-[address] ([address]) AST [Catalytic 26 U/L (no code) 10 - 34 U/L 03-24-2019 Hospi padilla activity/Vol] 03:40 [facility] (27283) Bilirubin 0.6 mg/dL (no code) 0.1 - 1.2 mg/dL 03-24-2019 Hospit al [Mass/Vol] 03:40 [facility] (67972) Calcium 9.8 mg/dL (no code) 8.5 - 10.2 mg/dL 03-24-2019 Hospi padilla [Mass/Vol] 03:40 [facility] (99507) Chloride 105 mmol/L (no code) 95 - 106 mmol/L 03-24-2019 Hospi padilla [Moles/Vol] 03:40 [facility] () Creatinine 0.82 mg/dL (no code) 03-24-2019 Hospital [Mass/Vol] 03:40 [facility] () GFR/1.73 sq 70 (no code) 90 - 120 03-24-2019 Hospital M.predicted MDRD mL/min/{1.73_m2} mL/min/{1.73_m2} 03:40 [facility] of (S/P/Bld) [Vol [facility] rate/Area] (57918) Globulin (S) 2.3 g/dL (no code) 2 - 3.5 g/dL 03-24-2019 Hospit al [Mass/Vol] 03:40 [facility] () Glucose 97 mg/dL (no code) 60 - 125 mg/dL 03-24-2019 Hospita l [Mass/Vol] 03:40050 [facility] (30391) HCO3 (P) 26 (no code) 03-24-2019 Hospital [Moles/Vol] 03:40 [facility] (92962) Osmolality Calc 296 (H) 03-24-2019 Hospital [Osmolality] 03:40 [facility] (24706) Potassium 4.5 mmol/L (no code) 3.7 - 5.2 mmol/L 03-24-2019 Hosp ital [Moles/Vol] 03:400500 [facility] (79622) Protein 7.0 g/dL (no code) 6.4 - 8.3 g/dL 03-24-2019 Hospita l [Mass/Vol] 03:400500 [facility] of [facility] (70822) Sodium 141 mmol/L (no code) 135 - 145 mmol/L 03-24-2019 Hosp ital [Moles/Vol] 03:400500 [facility] of [facility] (79844) Urea nitrogen 26 mg/dL (H) 7 - 20 mg/dL 03-24-2019 Hospi padilla [Mass/Vol] 03:400500 [facility] (20398) No panel information on 2018-09-08 Anion gap 12 mmol/L (no code) 3 - 11 mmol/L 09-08-2018 Hospital [Moles/Vol] 09:45-0400 [facility] (65158) Calcium 9.8 mg/dL (no code) 8.5 - 10.2 mg/dL 09-08-2018 Hospi padilla [Mass/Vol] 09:45-0400 [facility] (29322) Chloride 106 mmol/L (no code) 95 - 106 mmol/L 09-08-2018 Hospi padilla [Moles/Vol] 09:45-0400 [facility] (07873) Cholesterol 193 mg/dL (no code) 180 - 200 mg/dL 09-08-2018 Hosp ital [Mass/Vol] 09:450400 [facility] (90191) Cholesterol in 44 mg/dL (no code) 09-08-2018 Hospital HDL [Mass/Vol] 09:450400 [facility] (06659) Cholesterol in 123 mg/dL (H) 0 - 100 mg/dL 09-08-2018 Hos pital LDL [Mass/Vol] 09:450400 [facility] (95440) Cholesterol in 26 mg/dL (no code) 09-08-2018 Hospital VLDL [Mass/Vol] 09:450400 [facility] (73027) Cholesterol.tota 4.4 {ratio} (no code) 09-08-2018 Hospital l/Cholesterol in 09:450400 [facility] of HDL [Mass ratio] [facility] (23693) Creatinine 0.76 mg/dL (no code) 09-08-2018 Hospital [Mass/Vol] 09: [facility] (51066) GFR/1.73 sq 76 (no code) 90 - 120 09-08-2018 Hospital M.predicted MDRD mL/min/{1.73_m2} mL/min/{1.73_m2} 09: [facility] of (S/P/Bld) [Vol [facility] rate/Area] (71899) Glucose 90 mg/dL (no code) 60 - 125 mg/dL 09-08-2018 Hospita l [Mass/Vol] 09: [facility] (60053) HCO3 (P) 26 (no code) 09-08-2018 Hospital [Moles/Vol] 09:45 [facility] (52409) Osmolality Calc 291 (no code) 09-08-2018 Hospital [Osmolality] 09: [facility] (74451) Potassium 4.5 mmol/L (no code) 3.7 - 5.2 mmol/L 09-08-2018 Hosp ital [Moles/Vol] 09:45 [facility] (53117) Sodium 139 mmol/L (no code) 135 - 145 mmol/L 09-08-2018 Hosp ital [Moles/Vol] 09:45 [facility] (18756) Triglyceride 132 mg/dL (no code) 0 - 150 mg/dL 09-08-2018 Hospi padilla [Mass/Vol] 09:45 [facility] (05192) Urea nitrogen 26 mg/dL (H) 7 - 20 mg/dL 09-08-2018 Hospi padilla [Mass/Vol] 09:45 [facility] (51634) No panel information on 2018-03-15 Inspecting Machine Adjuster Cyto Comment (no code) 03-15-2018 [facility] (0 0000) stain Nom 12:16-0500 (Cvx/Vag) [ID] Cytology report Comment (no code) 03-15-2018 [facility] (0 0000) Cyto stain.thin 12: prep Doc (Cvx/Vag) Microscopic . (no code) 03-15-2018 [facility] (57454 ) observation 12: Other stain Nom (Unsp spec) Note: Comment (no code) 03-15-2018 [facility] ([id number] ) 12:160500 Pathology report Comment (no code) 03-15-2018 [facility] ( 16581) final diagnosis 12: Narrative QC reviewed by: [...] ital conc 10: [facility] (74712) ALP enzyme 79 U/L (no code) 44 - 147 U/L 03-09-2018 Hospital act/vol 10: [facility] (97769) ALT enzyme 28 U/L (no code) 4 - 40 U/L 03-09-2018 Hospital act/vol 10: [facility] (37691) Anion gap 3 15 mmol/L (H) 3 - 11 mmol/L 03-09-2018 Hospit al molar conc 10: [facility] (97941) AST enzyme 28 U/L (no code) 10 - 34 U/L 03-09-2018 Hospital act/vol 10: [facility] (40820) Bilirubin Ql (U) 0.6 (no code) 03-09-2018 Hospital 10: [facility] (87818) Calcium mass 9.8 mg/dL (no code) 8.5 - 10.2 mg/dL 03-09-2018 Ho spital conc 10: [facility] (66100) Chloride molar 105 mmol/L (no code) 95 - 106 mmol/L 03-09-2018 Hospital conc 10: [facility] (17648) Cholesterol in 52 mg/dL (no code) 03-09-2018 Hospital HDL mass conc 10: [facility] (70204) Cholesterol in 147 mg/dL (H) 0 - 100 mg/dL 03-09-2018 Hos pital LDL mass conc 10: [facility] (88784) Cholesterol in 26 mg/dL (no code) 03-09-2018 Hospital VLDL mass conc 10: [facility] (47544) Cholesterol mass 225 mg/dL (no code) 180 - 200 mg/dL 03-09-2018 Hospital conc 10: [facility] (48426) Cholesterol.tota 4.3 {ratio} (no code) 03-09-2018 Hospital l/Cholesterol in 10: [facility] of HDL mass ratio [facility] (54711) CO2 molar conc 26 mmol/L (no code) 23 - 29 mmol/L 03-09-2018 Ho spital 10: [facility] (03816) Creatinine mass 0.74 mg/dL (no code) 03-09-2018 Hospital conc 10: [facility] (50360) GFR/1.73 sq M 79 (no code) 90 - 120 03-09-2018 Hospital predicted among mL/min/{1.73_m2} mL/min/{1.73_m2} 10: [facility] of non-blacks MDRD [facility] vol rate/area (68014) (S/P/Bld) Globulin 2.3 g/dL (no code) 2 - 3.5 g/dL 03-09-2018 Hospital Calculated mass 10: [facility] of conc (S) [facility] (17503) Glucose mass 95 mg/dL (no code) 60 - 125 mg/dL 03-09-2018 Hosp ital conc 10: [facility] (24032) Osmolality 294 mosm/kg (no code) 275 - 295 03-09-2018 Hospital mosm/kg 10: [facility] (26609) Potassium molar 4.6 mmol/L (no code) 3.7 - 5.2 mmol/L 03-09-2018 Hospital conc 10: [facility] (08304) Protein mass 6.8 g/dL (no code) 6.4 - 8.3 g/dL 03-09-2018 Hosp ital conc 10: [facility] (08777) Sodium molar 141 mmol/L (no code) 135 - 145 mmol/L 03-09-2018 H ospital conc 10: [facility] (40405) Triglyceride 129 mg/dL (no code) 0 - 150 mg/dL 03-09-2018 Hospi padilla mass conc 10: [facility] (21897) Urea nitrogen 22 mg/dL (no code) 7 - 20 mg/dL 03-09-2018 Hospi padilla mass conc 10: [facility] (49121) No panel information on 2017-01-19 Inspecting Machine Adjuster Cyto Comment (no code) 01-19-2017 Not Availa ble stain Nom 10: (92664) (Cvx/Vag) [ID] Cytology report Comment (no code) 01-19-2017 Not Availa ble Cyto stain.thin 10:0 (93568) prep Doc (Cvx/Vag) Microscopic . (no code) 01-19-2017 Not Available observation 10: (85671) Other stain Nom (Unsp spec) Note: Comment (no code) 01-19-2017 Not Available 10:0 (29938) Pathology report Comment (no code) 01-19-2017 Not Avail able final diagnosis 10: (47898) Narrative QC reviewed by: Comment (no code) 01-19-2017 Not Availa ble 10:0 (03697) Statement of Comment (no code) 01-19-2017 Not Available adequacy Cyto 10: (58745) stain (Cvx/Vag) [Interp] No panel information on 2017-01-14 Albumin BCG dye 4.4 (no code) 01-14-2017 Not Availa ble [Mass/Vol] 10: (95398) ALP [Catalytic 90 U/L (no code) 44 - 147 U/L 01-14-2017 Not Available activity/Vol] 10: (94210) ALT [Catalytic 20 U/L (no code) 4 - 40 U/L 01-14-2017 Not Av ailable activity/Vol] 10: (61972) Anion gap 12 mmol/L (no code) 3 - 11 mmol/L 01-14-2017 Not Avai lable [Moles/Vol] : (32277) AST [Catalytic 22 U/L (no code) 10 - 34 U/L 01-14-2017 Not A vailable activity/Vol] : (81643) Bilirubin 0.7 mg/dL (no code) 0.1 - 1.2 mg/dL 01-14-2017 Not Av ailable [Mass/Vol] : (77511) Calcium 9.7 mg/dL (no code) 8.5 - 10.2 mg/dL 01-14-2017 Not A vailable [Mass/Vol] : (26635) Chloride 103 mmol/L (no code) 95 - 106 mmol/L 01-14-2017 Not A vailable [Moles/Vol] : (93929) Creatinine 0.75 mg/dL (no code) 01-14-2017 Not Available [Mass/Vol] 10: (14547) GFR/1.73 sq 78 (no code) 90 - 120 01-14-2017 Not Availa ble M.predicted MDRD mL/min/{1.73_m2} mL/min/{1.73_m2} : (35475) (S/P/Bld) [Vol rate/Area] Globulin (S) 2.4 g/dL (no code) 2 - 3.5 g/dL 01-14-2017 Not Av ailable [Mass/Vol] 10:000400 (35625) Glucose 90 mg/dL (no code) 60 - 125 mg/dL 01-14-2017 Not Stefanie ilable [Mass/Vol] 10:0400 (66891) HCO3 (P) 29 (no code) 01-14-2017 Not Available [Moles/Vol] 10:000400 (81447) Osmolality Calc 292 (no code) 01-14-2017 Not Availa ble [Osmolality] 10:0 (10361) Potassium 4.1 mmol/L (no code) 3.7 - 5.2 mmol/L 01-14-2017 Not Available [Moles/Vol] 10:0400 (78290) Protein 6.8 g/dL (no code) 6.4 - 8.3 g/dL 01-14-2017 Not Stefanie ilable [Mass/Vol] 10:0 (84035) Sodium 140 mmol/L (no code) 135 - 145 mmol/L 01-14-2017 Not Available [Moles/Vol] 10:0400 (44139) Urea nitrogen 22 mg/dL (no code) 7 - 20 mg/dL 01-14-2017 Not A vailable [Mass/Vol] 10:0400 (19710) No panel information on 2016-07-08 Anion gap 16 mmol/L (H) 3 - 11 mmol/L 07-08-2016 Not Avai lable [Moles/Vol] 10:0500 (36729) Calcium 9.7 mg/dL (no code) 8.5 - 10.2 mg/dL 07-08-2016 Not A vailable [Mass/Vol] 10:0500 (31749) Chloride 105 mmol/L (no code) 95 - 106 mmol/L 07-08-2016 Not A vailable [Moles/Vol] 10:0500 (05399) Creatinine 0.81 mg/dL (no code) 07-08-2016 Not Available [Mass/Vol] 10:050500 (07433) GFR/1.73 sq 71 (no code) 90 - 120 07-08-2016 Not Availa ble M.predicted MDRD mL/min/{1.73_m2} mL/min/{1.73_m2} 10:0500 (15182) (S/P/Bld) [Vol rate/Area] Glucose 94 mg/dL (no code) 60 - 125 mg/dL 07-08-2016 Not Stefanie ilable [Mass/Vol] 10:0500 (44499) HCO3 (P) 26 (no code) 07-08-2016 Not Available [Moles/Vol] 10:0500 (53576) Osmolality Calc 296 (H) 07-08-2016 Not Availa ble [Osmolality] 10:050 (14566) Potassium 4.5 mmol/L (no code) 3.7 - 5.2 mmol/L 07-08-2016 Not Available [Moles/Vol] 10: (25280) Sodium 142 mmol/L (no code) 135 - 145 mmol/L 07-08-2016 Not Available [Moles/Vol] 10:0500 (67506) Urea nitrogen 22 mg/dL (no code) 7 - 20 mg/dL 07-08-2016 Not A vailable [Mass/Vol] 10:0500 (64101) Vital Signs The data below is from unstructured sources Vital Response Date/Time Temperature (Fahrenheit) 97.4 degree s F (97.6 - 99.5) 09/06/2015 12:51pm Temperature (Calculated Celsius) 36. 02535 degrees C (36.4 - 37.5) 09/06/2015 12:51pm [...] inches 09/06/2015 12:51pm Height (Calculated Centimeters) 157. 863736 cm 09/06/2015 12:51pm Weight (Pounds) 170 pounds 09/06/2015 12:51pm Weight (Calculated Grams) 57297.704 gm 09/06/2015 12:51pm Weight (Calculated Kilograms) 77.110 [...] inches 02/09/2015 12:04am Height (Calculated Centimeters) 157. 275662 cm 02/09/2015 12:04am Weight (Pounds) 170 pounds 02/09/2015 12:04am Weight (Calculated Kilograms) 77.110 704 kilograms 02/09/2015 12:04am Calculated BMI 31.09 05/2014 12:04am No known vital signs results. Interventions No Information Plan of Treatment Normalized Care Care Detail Care Activity Date Care Provider F acility Activity Patient encounter no information 07-13-2018 Fazal DUNLAP Not Available (73126) Patient encounter no information 07-27-2018 Fazal DUNLAP Not Available (99654) Goals No Information Social History No Information [...] 0 09/06/15 12:55pm Health Care Power of Interior Design Instructor Yes 09/06/15 12:55pm Organ Donor Yes 09/06/15 12:55pm Resuscitation Status Full Code 09/06/15 12:55pm Directive Response Recor ded Date/Time Advance Directives Yes 1 12:46am Health Care Power of Interior Design Instructor Yes 02/09/15 12:46am Organ Donor Yes 02/09/15 12:46am Resuscitation Status Full Code 02/09/15 12:46am Directive Response Recor ded Date/Time Advance Directives Yes 0 06/07/13 8:13am Health Care Power of Interior Design Instructor Yes 06/07/13 8:13am Organ Donor Yes 06/07/13 8:13am Discharge Instructions No hospital discharge instructions.No hospital discharge instructions.No hospital discharge instructions. Additional Source Comments This clinical document has been generated using buildabrand software that has been certified by the Office of the National Coordinator for Health Information Technology (ONC 15.99.04.3023.Diam.31.00.0.217988) and the National Committee for Geological Engineering Teacher (NCQA, as an eMeasure certified technology). FOR [...] BASED ON T HE PRIMARY CLINICAL RECORDS. [employer] [facility]. provides no warranty or guara ntee of the accuracy or completeness of information in this document.The followi ng information is based on time limited clinical information
[2019-09-03] MEDS ORDERED: CATHETER FLUSH 10 ML SYR IV PRN (17:00)
[2019-09-03] MEDS ORDERED: NS IV 500 ML 500 ML IV SCH (17:00)
[2019-09-03 17:02] VITALS: BP 152/75
--- NOTE | 2019-09-03 17:15 | NUR ---
Kvng Mccann admitted to room 415-1, with an admitting diagnosis of ANEMIA, on 09/03/19 from [place] via , accompanied by .KVNG MCCANN introduced to surroundings, call light, bed controls, phone, TV, temperature control, lights, meal times, smoking policy, visitor policy, side rail policy, bathrooms and showers. Patient Rights given to patient in the handbook.KVNG MCCANN verbalizes understanding that [facility] is not responsible for the loss or damage to any personal effects or valuables that are kept in the patients posession during their hospitalization. KVNG MCCANN verbalizes understanding of Interdisciplinary Patient Education. Patient and/or family were informed about the Rapid Response Team and its purpose.
[2019-09-03 19:15] VITALS: BP 106/62
[2019-09-03] MEDS: NS IV 1000 ML 1,000 ML IV SCH (22:50)
[2019-09-03 23:25] VITALS: BP 113/56
[2019-09-04] MEDS: NS IV 1000 ML 1,000 ML IV SCH (02:39)
[2019-09-04 04:25] VITALS: BP 121/57
[2019-09-04 08:00] VITALS: BP 112/69
[2019-09-04] MEDS ORDERED: PANTOPRAZOLE 40 MG (PROTONIX) VIAL IV SCH (09:00)
--- NOTE | 2019-09-04 11:02 | NUR ---
DR MATA NOTIFIED OF CRITICAL HGB 6.7 AND HCT 20
[2019-09-04 11:11] LABS: CHLORIDE 108 MMOL/L (98-107); POTASSIUM 4.3 MMOL/L (3.6-5.0); SODIUM 141 MMOL/L (135-145)
[2019-09-04 11:12] LABS: CALCIUM 8.8 MG/DL (8.5-10.1)
[2019-09-04 11:13] LABS: GLUCOSE 82 MG/DL (70-105)
[2019-09-04 11:14] LABS: CARBON DIOXIDE 22 MMOL/L (21-32)
[2019-09-04 11:17] LABS: BUN/CREATININE RATIO 22; CREATININE SERUM 0.68 MG/DL (0.60-1.30); GFR ESTIMATED > 60
[2019-09-04 11:56] VITALS: BP 127/75
--- NOTE | 2019-09-04 12:29 | Consultation - Surgery ---
History of Present Illness History of Present Illness Patient Consulted On(tammy/time) 09/04/19 12:20 Date Seen by Provider: Sep 04, 2019 Time Seen by Provider: 09:17 History of Present Illness Consult requested by Dr. Talbot for anemia. Patient is a 69 year old female who has been feeling increasing weakness dizizness nad shortness of breath for about a week. She states she is very active typically and the more she would try to increase activity, worse her symptoms would be. She was tested for flu and covid which are reported negative. Patient had blood draw that demonstrated her hgb to be 7 and was informed to go to the hospital. She has also had a little nausea on occasion. No abdominal pain and not seen any dark or blood stools. She does have a history of polyps in her colon. Recently started on celebrex. No other complaints at this time. She states they are having a hard time matching her blood for transfusion. Allergies and Home Medications Allergies Coded Allergies: NKANo Known Allergies (Verified Allergy, Unknown, 12/27/05) Home Medications Fluoxetine Hcl 20 Mg Capsule, 1 EACH PO DAILY, (Reported) Moexipril Hcl 15 Mg Tablet, 1 EACH PO DAILY WITH A MEAL, (Reported) Ondansetron 4 Mg Tab.rapdis, 4 MG PO Q6H PRN for NAUSEA/VOMITING Prescribed by: MAL SERRANO on 02/09/15 0350 Spironolactone 100 Mg Tablet, 100 MG PO DAILY, (Reported) Patient Home Medication List Home Medication List Reviewed: Yes Past Ujokxls-Prqyav-Srxxuj Hx Patient Social History Alcohol Use: Occasionally Uses Recreational Drug Use: No Smoking Status: Former Smoker (2 PPD, QUIT 1994) Type Used: Cigarettes Recent Foreign Travel: No Contact w/Someone Who Travel: No Recent Infectious Disease Expo: No Immunizations Up To Date Date of Pneumonia Vaccine: May 13, 2016 Date of Influenza Vaccine: Feb 22, 2013 Seasonal Allergies Seasonal Allergies: Yes Surgeries History of Surgeries: Yes (SEE BELOW) Surgeries: Adenoidectomy, Appendectomy, Gallbladder, Hysterectomy, Oophorectomy, Orthopedic, Tonsillectomy Respiratory History of Respiratory Disorde: Yes Respiratory Disorders: Asthma Cardiovascular History of Cardiac Disorders: Yes Cardiac Disorders: Chronic Edema/Swelling, Hypertension Neurological History of Neurological Disord: No Reproductive System Hx Reproductive Disorders: 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) 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, 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 Genitourinary History of Genitourinary Disor: No Gastrointestinal History of Gastrointestinal Di: Yes Gastrointestinal Disorders: Polyps Musculoskeletal History of Musculoskeletal Dis: Yes (CHRONIC NECK PAIN--S/P CERVICAL SPINE [id number]) Musculoskeletal Disorders: Degenerate Disk Disease, Osteoporosis, Arthritis, Rheumatoid Arthritis, Chronic Back Pain, Fractures Endocrine History of Endocrine Disorders: No HEENT History of HEENT Disorders: No Cancer History of Cancer: Yes Cancer: Cervical Psychosocial History of Psychiatric Problem: No Integumentary History of Skin or Integumenta: No Blood Transfusions History of Blood Disorders: No Reviewed Nursing Assessment Reviewed/Agree w Nursing PMH: Yes Family Medical History Significant Family History: No Pertinent Family Hx Review of Systems-General Constitutional: weakness Respiratory: dyspnea on exertion, short of breath Cardiovascular: No chest pain; other (heart pounds with activity) Genitourinary: no symptoms reported; No decreased output, No discharge Musculoskeletal: other (chronic musculoskeletal pain) Skin: no symptoms reported; No change in color, No change in hair/nails Psychiatric/Neurological: No Symptoms Reported; Denies Anxiety, Denies Depressed, Denies Emotional Problems Physical Exam-General Problems Physical Exam Vital Signs Vital Signs - First Documented 09/03/19 14:52 Temp 37.0 Pulse 61 Resp 18 B/P (MAP) 170/80 (110) Pulse Ox 97 O2 Delivery Room Air Capillary Refill : Less Than 3 SecondsLess Than 3 Seconds General Appearance: no apparent distress HEENT: PERRL/EOMI, normal ENT inspection Respiratory: chest non-tender, no respiratory distress, no accessory muscle use Cardiovascular: regular rate, rhythm Gastrointestinal: non tender, soft, no organomegaly Rectal: deferred Back: normal inspection, no CVA tenderness Extremities: normal range of motion, normal inspection Neurologic/Psychiatric: 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1, Lymphocytes # (Auto) 1.0, Monocytes # (Auto) 0.5, Eosinophils # (Auto) 0.2, Basophils # (Auto) 0.0, Prothrombin Time 14.1, INR Comment 1.0, Activated Partial Thromboplast Time 27, Sodium Level 140, Potassium Level 4.4, Chloride Level 107, Carbon Dioxide Level 23, Anion Gap 10, Blood Urea Nitrogen 22H, Creatinine 0.75, Estimat Glomerular Filtration Rate > 60, BUN/Creatinine Ratio 29, Glucose Level 135H, Calcium Level 9.0, Corrected Calcium 8.8, Magnesium Level 1.9, Total Bilirubin 2.1H, Aspartate Amino Transf (AST/SGOT) 28, Alanine Aminotransferase (ALT/SGPT) 13, Alkaline Phosphatase 75, Total Creatine Kinase 61, Creatine Kinase MB 1.5, Myoglobin 38.6, Troponin I < 0.028, B-Type Natriuretic Peptide 89.2, Total Protein 6.7, Albumin 4.3 09/04/19 10:31: White Blood Count 2.4L, Red Blood Count 2.01L, Hemoglobin 6.7*L, Hematocrit 20*L , Mean Corpuscular Volume 101H, Mean Corpuscular Hemoglobin 33, Mean Corpuscular Hemoglobin Concent 33, Red Cell Distribution Width 19.4H, Platelet Count 265, Mean Platelet Volume 10.0, Sodium Level 141, Potassium Level 4.3, Chloride Level 108H, Carbon Dioxide Level 22, Anion Gap 11, Blood Urea Nitrogen 15, Creatinine 0.68, Estimat Glomerular Filtration Rate > 60, BUN/Creatinine Ratio 22, Glucose Level 82, Calcium Level 8.8 Assessment/Plan Assessment/Plan Assessment/Plan weakness dyspnea on exertion symptomatic anemia history of polyps. patient with symptomatic anemia, recently started celebrex. will repeat hgb and follow, transfusing prn will plan egd/colonoscopy inpatient vs outpatient Protonix Clear liquids will follow Clinical Quality Measures DVT/VTE Risk/Contraindication: Risk Factor Score Per Nursin RFS Level Per Nursing on Admit: 2=Moderate ZEINA DILLARD DO Sep 04, 2019 12:29
--- NOTE | 2019-09-04 13:36 | History & Physical-Hospitalist ---
History of Present Illness HPI/Chief Complaint patient is a 69-year-old female with past medical history of hypertension, hyperlipidemia, depression who presented to the emergency department due to weakness and shortness of breath 1 week. She states she is normally very active and is out riding horses at meals regularly. For the past week she has been very short of breath with any exertion and has had no stamina. On 08/30 she was tested for COVID-19 and the results came back negative yesterday. She continued to worsen so was seen by her primary care doctor and labs were done. This revealed a hemoglobin of 7.6. She was sent to the emergency department for evaluation due to this. In the ER her hemoglobin was 7.0. She denies any dark or bloody stools. She denies any vaginal bleeding. She denies any hematochezia or hemoptysis. She has had a colonoscopy most recently 6 years ago. She states that this was normal. Of note she was recentl y started on Celebrex. She has never had an EGD done. Hemoglobin this morning is 6.7. Source: patient Date Seen 09/04/19 Time Seen by a Provider: 13:31 Attending Physician Keisha Talbot MD PCP Анна Collier MD Referring Physician Date of Admission Sep 04, 2019 at 13:14 Home Medications & Allergies Home Medications Reviewed patient Home Medication Reconciliation performed by pharmacy medication reconciliations residential air sealing technician and/or nursing. Patients Allergies have been reviewed. Allergies Allergies Coded Allergies NKANo Known Allergies (Verified Allergy, Unknown, 12/27/05) Past Wkthwnn-Lqgpyz-Qopkzc Hx Past Med/Social Hx: Reviewed and Corrections made Patient Social History Marrital Status: Employed/Student: retired Alcohol Use: Occasionally Uses Recreational Drug Use: No Smoking Status: Former Smoker (2 PPD, QUIT 1994) Former Smoker, Quit: May 12, 1964 Type Used: Cigarettes Recent Foreign Travel: No Contact w/other who traveled: No Recent Infectious Disease Expo: No Immunizations Up To Date Date of Pneumonia Vaccine: May 13, 2016 Date of Influenza Vaccine: Feb 22, 2013 Seasonal Allergies Seasonal Allergies: Yes Past Medical History Surgeries: Adenoidectomy, Appendectomy, Gallbladder, Hysterectomy, Oophorectomy, Orthopedic, Tonsillectomy Cardiac: Chronic Edema/Swelling, Hypertension Reproductive: 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) Hysterectomy, Menopausal Gastrointestinal: Polyps Musculoskeletal: Degenerate Disk Disease, Osteoporosis, Arthritis, Rheumatoid Arthritis, Chronic Back Pain, Fractures Cancer: Cervical Did You Recieve Any Treatments: Yes (HYSTERCTOMY) What Type of Treatment Did You: Surgical Intervention History of Blood Disorders: No Family History Reviewed Nursing Family Hx No Pertinent Family Hx PSH: -APPENDECTOMY AGE 15 -TONSILLECTOMY/ADENOIDECTOMY -HYSTERECTOMY 1987 FOR CERVICAL CANCER -BSO 1994--DUE TO MOTHER WITH OVARIAN CANCER -CHOLECYSTECTOMY 2005 -RIGHT WRIST/FOREARM FX/ORIF -CERVICAL SPINE FUSION--[id number]--DR. ANA MARÍA GAINES -EGD/COLONSCOPIES Review of Systems Constitutional: No diaphoresis, No fever; malaise, weakness EENTM: no symptoms reported Respiratory: No cough; dyspnea on exertion, short of breath Cardiovascular: No chest pain, No palpitations Gastrointestinal: No abdominal pain, No constipation, No diarrhea, No hematemesis, No jaundice, No melena, No nausea Genitourinary: no symptoms reported Musculoskeletal: no symptoms reported Skin: no symptoms reported Psychiatric/Neurological: No Symptoms Reported Physical Exam Physical Exam Vital Signs Vital Signs - First Documented 09/03/19 14:52 Temp 37.0 Pulse 61 Resp 18 B/P (MAP) 170/80 (110) Pulse Ox 97 O2 Delivery Room Air Capillary Refill : Less Than 3 SecondsLess Than 3 Seconds Height, Weight, BMI Height: 5'2" Weight: 170lbs. oz. 77.310441bq; 30.23 BMI Method:Stated General Appearance: No Apparent Distress, WD/WN HEENT: TMs Normal, Moist Mucous Membranes; No Scleral Icterus (L), No Scleral Icterus (R) Neck: Normal Inspection, Supple; No Thyromegaly Respiratory: Lungs Clear, No Accessory Muscle Use, No Respiratory Distress Cardiovascular: Regular Rate, Rhythm, No Edema, No JVD, No Murmur Gastrointestinal: Normal Bowel Sounds, Non Tender, Soft; No Distended Extremity: Normal Capillary Refill, No Calf Tenderness, No Pedal Edema Neurologic/Psychiatric: Alert, Oriented x3, Normal Mood/Affect; No Aphasia, No Facial Droop Skin: Normal Color, Warm/Dry Results Results/Procedures Labs Laboratory Tests 09/03/19 15:08 09/04/19 10:31 Patient resulted labs reviewed. Imaging: Reviewed Imaging Report Imaging Date of Exam:09/03/19 CHEST 1 VIEW, AP/PA ONLY INDICATION: Lightheadedness, dizziness, weakness COMPARISON: 02/09/2015 TECHNIQUE: Single frontal radiograph of the chest dated 09/03/2019 FINDINGS: The cardiac silhouette is enlarged, though stable. No significant pulmonary vascular congestion. The left lung is clear. The right lung is clear. No pleural effusion. No pneumothorax. Postsurgical changes within the cervical spine. Chronic appearing right 6th rib fracture. No acute osseous abnormality. IMPRESSION: Cardiomegaly without overt congestive heart failure. Assessment/Plan Admission Diagnosis Anemia Admission Status: Observation Assessment and Plan Symptomatic anemia 1 unit ordered- blood sent to [facility] for testing due to antibodies Surgery consulted, will likely need EGD tomorrow Continue PPI FOBT ordered Bili elevated- will check LDH, haptoglobin, smear, retic count iron studies HTN HLD Well controlled, trend Continue statin Arthritis Hold Celebrex Depression Fluoxetine DVT ppx; hold Lovenox for anemia, SCDs Clinical Quality Measures DVT/VTE Risk/Contraindication: Risk Factor Score Per Nursin RFS Level Per Nursing on Admit: 2=Moderate KEISHA TALBOT MD Sep 04, 2019 13:36
[2019-09-04] MEDS ORDERED: MILK OF MAGNESIA 400 MG/5 ML 30 ML UDC PO PRN (13:45)
[2019-09-04] MEDS ORDERED: ACETAMINOPHEN 325 MG TABLET PO PRN (13:45)
[2019-09-04] MEDS ORDERED: ANTACID SUSP 30 ML UDC (MYLANTA) PO PRN (13:45)
[2019-09-04] MEDS ORDERED: ONDANSETRON 4 MG/2 ML (SDV) Z0FRAN IVP PRN (13:45)
[2019-09-04] MEDS ORDERED: MELATONIN 3 MG TABLET PO PRN (13:45)
[2019-09-04] MEDS ORDERED: BENZONATATE 100 MG (TESSALON) CAPSULE PO PRN (13:45)
[2019-09-04 13:49] LABS: ABSOLUTE RETIC # 431 10e9/L (24-90); BASOPHILS % (AUTO) 1 % (0-10); EOSINOPHILS # (AUTO) 0.1 10^3/uL (0.0-0.3); EOSINOPHILS % (AUTO) 4 % (0-10); LYMPHOCYTES # (AUTO) 0.8 X 10^3 (1.0-4.0); LYMPHOCYTES % (AUTO) 32 % (12-44); MEAN CORPUSCULAR HEMOGLOBIN 33 PG (25-34); MONOCYTES # (AUTO) 0.4 X 10^3 (0.0-1.0); MONOCYTES % (AUTO) 15 % (0-12); NEUTROPHILS # (AUTO) 1.2 X 10^3 (1.8-7.8); NEUTROPHILS % (AUTO) 48 % (42-75); RETICULOCYTE % 21.22 % (0.50-2.40)
[2019-09-04 13:50] LABS: HEMOGLOBIN 6.7 G/DL (11.5-16.0); WHITE BLOOD COUNT 2.4 10^3/uL (4.3-11.0)
[2019-09-04 13:51] LABS: HEMATOCRIT 20 % (35-52); MEAN CORPUSCULAR HGB CONC 33 G/DL (32-36); MEAN CORPUSCULAR VOLUME 101 FL (80-99); PLATELET COUNT 265 10^3/uL (130-400); RED CELL DISTRIBUTION WIDTH 19.4 % (10.0-14.5)
[2019-09-04 13:57] LABS: BILIRUBIN,TOTAL 2.1 MG/DL (0.1-1.0)
[2019-09-04 15:43] LABS: BAND NEUTROPHILS 2 %; EOSINOPHILS % (MANUAL) 3 %; HYPOCHROMASIA MODERATE; LYMPHOCYTES % (MANUAL) 35 %; MONOCYTES % (MANUAL) 7 %; NEUTROPHILS % (MANUAL) 53 %; POLYCHROMASIA MODERATE; TEAR DROP CELLS SLIGHT
[2019-09-04 15:45] VITALS: BP 146/72
[2019-09-04 19:37] VITALS: BP 125/75
[2019-09-04] MEDS: SIMvastatin 20 MG (ZOCOR) TAB PO SCH (20:17)
[2019-09-04] MEDS: PANTOPRAZOLE 40 MG (PROTONIX) VIAL IV SCH (20:17)
[2019-09-04 23:49] VITALS: BP 133/60
[2019-09-05] VITALS (8 sets, daily range): BP systolic 110–139; BP diastolic 56–66
[2019-09-05 04:58] LABS: MEAN PLATELET VOLUME 9.3 FL (7.4-10.4); RED CELL DISTRIBUTION WIDTH 19.1 % (10.0-14.5); WHITE BLOOD COUNT 2.1 10^3/uL (4.3-11.0)
[2019-09-05 05:01] LABS: HEMOGLOBIN 6.3 G/DL (11.5-16.0)
[2019-09-05 05:24] LABS: BUN/CREATININE RATIO 18; CALCIUM 8.7 MG/DL (8.5-10.1); CARBON DIOXIDE 24 MMOL/L (21-32); CHLORIDE 107 MMOL/L (98-107); CREATININE SERUM 0.74 MG/DL (0.60-1.30); GFR ESTIMATED > 60; GLUCOSE 86 MG/DL (70-105); POTASSIUM 4.2 MMOL/L (3.6-5.0); SODIUM 140 MMOL/L (135-145)
[2019-09-05] MEDS: PANTOPRAZOLE 40 MG (PROTONIX) VIAL IV SCH ×2 (08:14→21:48)
[2019-09-05] MEDS: FLUoxetine HCL 20 MG (PROzac) CAP PO SCH (08:14)
--- NOTE | 2019-09-05 10:25 | Progress Note - Hospitalist ---
Subjective HPI/CC On Admission Date Seen by Provider: Sep 05, 2019 Time Seen by Provider: 10:20 patient is a 69-year-old female with past medical history of hypertension, hyperlipidemia, depression who presented to the emergency department due to weakness and shortness of breath 1 week. She states she is normally very active and is out riding horses at meals regularly. For the past week she has been very short of breath with any exertion and has had no stamina. On 08/30 she was tested for COVID-19 and the results came back negative yesterday. She continued to worsen so was seen by her primary care doctor and labs were done. This revealed a hemoglobin of 7.6. She was sent to the emergency department for evaluation due to this. In the ER her hemoglobin was 7.0. She denies any dark or bloody stools. She denies any vaginal bleeding. She denies any hematochezia or hemoptysis. She has had a colonoscopy most recently 6 years ago. She states that this was normal. Of note she was recently started on Celebrex. She has never had an EGD done. Hemoglobin this morning is 6.7. Subjective/Events-last exam Pt reports feeling the same. Still fatigued. Discussed lab results with patient and concern for hemolytic anemia. Discussed plan to avoid transfusion at this time. Objective Exam Vital Signs Vital Signs Date Time Temp Pulse Resp B/P (MAP) Pulse Ox O2 Delivery O2 Flow Rate FiO2 09/05/19 08:00 37.2 56 16 139/66 (90) 97 Room Air Capillary Refill : Less Than 3 SecondsLess Than 3 Seconds General Appearance: No Apparent Distress, WD/WN Respiratory: Lungs Clear, No Respiratory Distress Cardiovascular: Regular Rate, Rhythm, No Murmur Neurologic/Psychiatric: Alert, Oriented x3, Normal Mood/Affect Results/Procedures Lab Laboratory Tests 09/04/19 10:31 09/05/19 04:31 Patient resulted labs reviewed. Imaging: Reviewed Imaging Report Assessment/Plan Assessment and Plan Assess & Plan/Chief Complaint Symptomatic anemia 1 unit ordered- blood sent to [facility] for testing due to antibodies Has warm auto antibodies, I discussed with Dr Rhodes and would have to get the "least incompatible" blood Discussed with patient and given hemodynamically stable will defer on transfusion Hematology consulted given concern for hemolytic anemia Surgery consulted, will likely need EGD tomorrow Continue PPI FOBT negative x2 Bili, LDH, Retic elevated- pending haptoglobin pending iron studies smear ordered off this morning's blood per Dr Mcknight's request HTN HLD Well controlled, trend Continue statin Arthritis Hold Celebrex Depression Fluoxetine DVT ppx; hold Lovenox for anemia, SCDs Clinical Quality Measures DVT/VTE Risk/Contraindication: Risk Factor Score Per Nursin RFS Level Per Nursing on Admit: 2=Moderate KEISHA MATA MD Sep 05, 2019 10:25
[2019-09-05] MEDS ORDERED: NS IV 500 ML 500 ML IV SCH (11:14)
[2019-09-05] MEDS ORDERED: diphenhydrAMINE 50 MG/ML INJ (BENADRYL) IVP PRN (11:15)
[2019-09-05] MEDS ORDERED: ACETAMINOPHEN 325 MG TABLET PO PRN (11:15)
[2019-09-05] MEDS: ENOXAPARIN 40 MG/0.4 ML (LOVENOX) SYR SQ SCH (11:18)
[2019-09-05] MEDS: predniSONE 20 MG TAB PO SCH (11:18)
[2019-09-05] MEDS ORDERED: IOHEXOL 350 MG/ML 100 ML (OMNIPAQUE 350) VIAL IV ONE (12:00)
[2019-09-05] MEDS ORDERED: HOLD METFORMIN - RECEIVED CONTRAST 20 ML VIAL IV SCH (12:00)
[2019-09-05] MEDS ORDERED: CATHETER FLUSH 10 ML SYR IV PRN (12:00)
[2019-09-05] MEDS ORDERED: NS 100 ML (IVPB) BAG IV ONE (12:00)
--- NOTE | 2019-09-05 12:40 | CONSULTATION REPORT ---
DATE OF SERVICE: 09/05/2019 REFERRING PHYSICIAN: Erin Talbot MD The patient is admitted to room 415. IMPRESSION: 1. Warm antibody autoimmune hemolytic anemia. 2. Symptomatic anemia due to above. RECOMMENDATIONS: 1. Start the patient on immunosuppression with prednisone 100 mg p.o. daily with food with the first dose administered now. 2. I will add rituximab to the treatment regimen within the next few days. 3. Obtain hepatitis panel, HIV, serum protein electrophoresis with quantitative immunoglobulins and CHRISTOS level. 4. Start the patient on folic acid 1 mg daily. 5. Evaluate lower extremities with Doppler studies to rule out DVT as well as a CT angiogram of the chest to rule out PE. Start the patient on prophylactic Lovenox as the risk of DVT is significantly high in patients with autoimmune hemolytic anemia. 6. Because of symptomatic anemia, transfuse with 1 unit of least incompatible blood today. 7. Repeat lab work including CBC, reticulocyte count, CMP and LDH level in a.m. BRIEF HISTORY: The patient is a 69-year-old female with increasing fatigue and shortness of breath since the last one week. She also had cough and was treated on an outpatient basis with erythromycin for few days. On further questioning, she was also treated with another antibiotic for urinary tract infection within the last month and was also started on Celebrex within four to six weeks. As her symptoms were worsening, she was sent to the emergency room and was noted to be significantly anemic with an elevated bilirubin level. Fecal occult blood test was negative. Reticulocyte count was markedly elevated at over 400,000. Because of this, a hematology consultation was requested. PAST MEDICAL HISTORY: Significant for hypertension for long time and on treatment, history of rheumatoid arthritis, diagnosed approximately 10 years ago and treated with methotrexate for 3 to 4 years. She was on another oral agent for several years, which was changed to Celebrex approximately 4 to 6 weeks ago. She has osteoporosis and fracture of her wrist in the past. Significant degenerative disk disease and neck surgery in the past. She has history of cervical dysplasia requiring a hysterectomy several years ago. Later on, she had bilateral salpingo-oophorectomy because of history of ovarian cancer in her mother. She has a history of depression and is on an antidepressant. Other surgeries include tonsillectomy and adenoidectomy in childhood, appendectomy at age 15, hysterectomy in 1987 for noninvasive cervical dysplasia, bilateral salpingo-oophorectomy in 1994, cholecystectomy in 2016, right wrist and forearm fracture requiring open reduction and internal fixation, C-spine fusion C4 through C6 in the past. She has had EGDs and colonoscopies with a few polyps removed in the past. SOCIAL HISTORY: The [place] is [place]. She has a daughter who lives close by in [place]. 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 She smokes a few cigarettes daily and has smoked intermittently over the years. No significant alcohol or other recreational drug use. FAMILY HISTORY: Only significant for ovarian cancer in her mother, which was diagnosed while in her early 50s. Her mother was adopted and the patient does not know maternal side of family. No significant medical problems on the paternal side of family. PHYSICAL EXAMINATION: GENERAL: Today showed an elderly female, moderately obese, awake and oriented, weak appearing. HEENT: Normocephalic, extraocular muscles intact, conjunctivae pale, sclerae mildly icteric, oral mucosa moist. NECK: Supple, with no JVD. No cervical, supraclavicular or axillary lymphadenopathy palpable. CHEST: Symmetrical. LUNGS: Fairly clear to auscultation without wheezes or rales. CARDIOVASCULAR: Regular in rate and rhythm without murmurs or gallops. ABDOMEN: Obese, soft, nontender with no hepatosplenomegaly or other masses palpable. EXTREMITIES: Showed 1+ edema around the ankles. NEUROLOGIC: Grossly intact without focal motor deficits. LABORATORY DATA: CBC done earlier today showed WBC 2.1, hemoglobin 6.3, platelet count of 235,000. CBC done yesterday showed white count of 2.4, hemoglobin 6.7 with platelet count of 265,000 and an absolute reticulocyte count of 431,000. Chemistry panel done on 09/03/2019 showed normal electrolytes. BUN was 22 and creatinine 0.75 with GFR more than 60 mL per minute. Total bilirubin was elevated at 2.1 with rest of the liver function studies within normal limits. BMP today was unremarkable. Serum LDH done yesterday was elevated at 401. KEVIN was positive for IgG and negative for complement. Thank you for allowing me to participate in this patient's care. I will follow the patient with you and make appropriate recommendations. Job ID: [id number] DocumentID: [id number] Dictated Date: 09/05/2019 11:50:05 Supply Teacher Date: 09/05/2019 12:39:54 Dictated By: MICHAEL SYKES MD MTDD
[2019-09-05] MEDS: FOLIC ACID 1 MG TAB PO SCH (12:42)
--- NOTE | 2019-09-05 13:47 | NUR ---
1st unit PRBC's infusing, pt voices no complaints, will continue to monitor.
--- NOTE | 2019-09-05 16:19 | NUR ---
BLOOD INFUSION COMPLETE, PT TOLERATED WELL. NO COMPLAINTS, WILL CONTINUE TO MONITOR
--- NOTE | 2019-09-05 16:45 | NUR ---
[facility] CALLED FOR CT/ANGIO, NO ANSWER, CALL BACK NUMBER AND MESSAGE LEFT.
--- NOTE | 2019-09-05 18:47 | Diagnostic Imaging Report ---
PROCEDURE: CT angiography of the chest with contrast. TECHNIQUE: Multiple contiguous axial images were obtained through the chest after uneventful bolus administration of intravenous contrast. 3D reconstructed CTA MIP acquisitions were also performed. Auto Exposure Controls were utilized during the CT exam to meet ALARA standards for radiation dose reduction. INDICATION: Shortness of air. Fatigue. Anemia. History of cervical cancer. COMPARISON: None FINDINGS: There is no acute pulmonary embolus to the first subsegmental division of the pulmonary arteries. Main pulmonary arterial trunk is borderline prominent, measuring 3 cm in diameter. Heart is mildly enlarged as well. There is no large pericardial effusion. Moderate calcified aortic and coronary atherosclerosis is present. There is also bulky calcification of the aortic valve. Ascending thoracic aorta measures 3.5 cm in diameter. There is no evidence of dissection or aortic stenosis. No pathologically enlarged or morphologically abnormal adenopathy is seen within the mediastinum, marisol or axilla. Evaluation of lung townsend demonstrates no focal consolidation, large effusion or pneumothorax. Subpleural 5 mm micronodular density is noted involving the inferolateral margins of the right upper lobe (image 43, series 3). Two 6 mm juxtapleural micronodules are also noted within the inferolateral margins of the left upper lobe (images 53 and 56, series 3). A few scattered benign calcified granulomata are also noted. Osseous structures show age-related degenerative changes. No acute bony abnormality is seen. Included portions of the upper abdomen show multiple hypodense hepatic cysts. Hypodensity of the left adrenal gland is also noted. Hounsfield units are consistent with benign adenoma. The area in question measures 1.5 x 1.0 cm (image 127, series 2). Spleen is only partially imaged, but is enlarged. Spleen measures 14.2 x 8.9 cm in axial dimension and extends at least 11 cm in cc dimension. Far inferior margins of the spleen are not included. IMPRESSION: 1. No CT evidence of acute pulmonary embolus of the first subsegmental division of the pulmonary arteries. 2. Moderate calcified aortic and coronary atherosclerosis. 3. Borderline enlarged main pulmonary arterial trunk. Please note, enlargement of the main pulmonary arterial trunk can be seen with underlying pulmonary arterial hypertension. 4. Bilateral upper lobe pulmonary micronodules. Please see below for follow-up recommendations. 5. Partially visualized splenomegaly. 6. Benign left adrenal adenoma. PULMONARY NODULE FOLLOW-UP Multiple nodules: <6 mm: * Low risk patient - no routine follow up * High risk patient - optional CT at 12 months 6-8 mm in size: * Low risk patient - Ct at 3-6 months, then consider CT at 18-24 months * High risk patient - CT at 3-6 months, then at 18-24 months >8 mm: * Low risk patient - CT at 3-6 months, then consider CT at 18-24 months * High risk patient - CT at 3-6 months, then at 18-24 months (Use most suspicious nodule as guide to management. Follow up interval may vary according to size and risk) Dictated by: Dictated on workstation # [id number]
--- NOTE | 2019-09-05 21:37 | Progress Note - Surgery ---
Subjective Date Seen by a Provider: Sep 05, 2019 Time Seen by a Provider: 11:12 Subjective/Events-last exam Still fatigued. Hgb dropped. Wanting to feel better. Denies n/v fever, abdominal pain, no blood per rectum. Objective Exam Vital Signs Date Time Temp Pulse Resp B/P (MAP) Pulse Ox O2 Delivery O2 Flow Rate FiO2 09/05/19 19:00 52 09/05/19 16:16 37.0 54 20 121/56 96 Room Air 09/05/19 15:48 37.3 53 15 133/63 (86) 96 Room Air 09/05/19 13:44 37.0 57 18 122/58 95 Room Air 09/05/19 13:28 37.0 57 18 134/63 96 Room Air 09/05/19 12:48 61 09/05/19 12:00 37.6 57 16 128/60 (82) 96 Room Air 09/05/19 08:00 Room Air 09/05/19 08:00 37.2 56 16 139/66 (90) 97 Room Air 09/05/19 06:46 58 09/05/19 04:00 36.3 53 19 133/62 (85) 96 Room Air 09/05/19 01:00 58 09/04/19 23:49 36.6 62 16 133/60 (84) 96 Room Air I & O 09/05/19 07:00 Intake Total 1750 ml Output Total 3550 ml Balance -1800 ml Capillary Refill : Less Than 3 SecondsLess Than 3 Seconds General Appearance: No Apparent Distress, WD/WN HEENT: PERRL/EOMI, Moist Mucous Membranes; No Scleral Icterus (L), No Scleral Icterus (R) Neck: Normal Inspection, Non Tender, Supple; No Thyromegaly Respiratory: Chest Non Tender, No Accessory Muscle Use, No Respiratory Distress Cardiovascular: Regular Rate, Rhythm Gastrointestinal: non tender, soft, no organomegaly Extremity: Normal Capillary Refill, No Calf Tenderness, No Pedal Edema Neurologic/Psychiatric: Alert, Oriented x3, Normal Mood/Affect Skin: Normal Color, Warm/Dry Lymphatic: No Adenopathy Results Lab Laboratory Tests 09/05/19 04:31: White Blood Count 2.1L, Red Blood Count 1.87L, Hemoglobin 6.3*L, Hematocrit 19*L , Mean Corpuscular Volume 102H, Mean Corpuscular Hemoglobin 34, Mean Corpuscular Hemoglobin Concent 33, Red Cell Distribution Width 19.1H, Platelet Count 235, Mean Platelet Volume 9.3, Sodium Level 140, Potassium Level 4.2, Chloride Level 107, Carbon Dioxide Level 24, Anion Gap 9, Blood Urea Nitrogen 13, Creatinine 0.74, Estimat Glomerular Filtration Rate > 60, BUN/Creatinine Ratio 18, Glucose Level 86, Calcium Level 8.7 09/05/19 12:32: Assessment/Plan Assessment/Plan Assessment/Plan weakness dyspnea on exertion hemolytic anemia symptomatic anemia history of polyps. discussed with Dr. Talbot, Dr. Ramirez to seeing patient- will hold off on endoscopy for now will plan egd/colonoscopy inpatient vs outpatient transfusing blood when can get least incompatible blood Protonix diet will follow Clinical Quality Measures DVT/VTE Risk/Contraindication: Risk Factor Score Per Nursin RFS Level Per Nursing on Admit: 2=Moderate ZEINA DILLARD DO Sep 05, 2019 21:37
[2019-09-05] MEDS: SIMvastatin 20 MG (ZOCOR) TAB PO SCH (21:48)
[2019-09-06] VITALS (8 sets, daily range): BP systolic 107–130; BP diastolic 53–73
[2019-09-06] MEDS: predniSONE 20 MG TAB PO SCH (06:37)
[2019-09-06 06:41] LABS: ABSOLUTE RETIC # 383 10e9/L (24-90); BASOPHILS % (AUTO) 1 % (0-10); EOSINOPHILS % (AUTO) 1 % (0-10); HEMATOCRIT 22 % (35-52); HEMOGLOBIN 7.2 G/DL (11.5-16.0); LYMPHOCYTES # (AUTO) 0.5 X 10^3 (1.0-4.0); LYMPHOCYTES % (AUTO) 32 % (12-44); MEAN CORPUSCULAR HEMOGLOBIN 32 PG (25-34); MEAN CORPUSCULAR HGB CONC 33 G/DL (32-36); MEAN CORPUSCULAR VOLUME 96 FL (80-99); MEAN PLATELET VOLUME 10.2 FL (7.4-10.4); MONOCYTES # (AUTO) 0.4 X 10^3 (0.0-1.0); MONOCYTES % (AUTO) 25 % (0-12); NEUTROPHILS # (AUTO) 0.7 X 10^3 (1.8-7.8); NEUTROPHILS % (AUTO) 42 % (42-75); PLATELET COUNT 253 10^3/uL (130-400); RED CELL DISTRIBUTION WIDTH 20.9 % (10.0-14.5); RETICULOCYTE % 16.96 % (0.50-2.40); WHITE BLOOD COUNT 1.6 10^3/uL (4.3-11.0)
[2019-09-06 06:49] LABS: ALBUMIN 3.8 GM/DL (3.2-4.5); CHLORIDE 108 MMOL/L (98-107); POTASSIUM 3.6 MMOL/L (3.6-5.0); SODIUM 142 MMOL/L (135-145)
[2019-09-06 06:52] LABS: GLUCOSE 129 MG/DL (70-105)
[2019-09-06 06:53] LABS: BILIRUBIN,TOTAL 1.9 MG/DL (0.1-1.0); CARBON DIOXIDE 23 MMOL/L (21-32)
[2019-09-06 06:55] LABS: ALKALINE PHOSPHATASE 64 U/L (40-136); CREATININE SERUM 0.74 MG/DL (0.60-1.30); GFR ESTIMATED > 60
[2019-09-06 06:56] LABS: BUN/CREATININE RATIO 24
[2019-09-06 06:58] LABS: ALANINE AMINOTRANSFERASE 11 U/L (0-55)
[2019-09-06] MEDS: PANTOPRAZOLE 40 MG (PROTONIX) VIAL IV SCH (08:56)
[2019-09-06] MEDS: FLUoxetine HCL 20 MG (PROzac) CAP PO SCH (08:56)
[2019-09-06] MEDS: FOLIC ACID 1 MG TAB PO SCH (08:56)
[2019-09-06] MEDS: ENOXAPARIN 40 MG/0.4 ML (LOVENOX) SYR SQ SCH (11:30)
[2019-09-06] MEDS ORDERED: AZIT500T9 PO (11:55)
[2019-09-06] MEDS ORDERED: FLUO20CA46 PO (11:55)
[2019-09-06] MEDS ORDERED: ESTR42.511 VG (11:55)
[2019-09-06] MEDS ORDERED: SPIR100T4 PO (11:55)
[2019-09-06] MEDS ORDERED: ALBU18HF2 PO (11:55)
[2019-09-06] MEDS ORDERED: PEG15DRO9 OU (11:55)
[2019-09-06] MEDS ORDERED: INUL1TAB4 PO (11:55)
[2019-09-06] MEDS ORDERED: SIMV20TA26 PO (11:55)
[2019-09-06] MEDS ORDERED: CHOL10008 PO (11:55)
[2019-09-06] MEDS ORDERED: TURM538C PO (11:55)
[2019-09-06] MEDS ORDERED: CRAN500T PO (11:55)
[2019-09-06] MEDS ORDERED: MOEX7.5T2 PO (11:55)
[2019-09-06] MEDS ORDERED: FOLI200T11 PO (11:55)
[2019-09-06] MEDS ORDERED: MAGN400T39 PO (11:55)
[2019-09-06] MEDS ORDERED: CYAN250014 PO (11:55)
[2019-09-06] MEDS ORDERED: BIOT10004 PO (11:55)
--- NOTE | 2019-09-06 11:57 | NUR ---
SPOKE WITH THE PT AND WENT THRU THE EXT MED HISTORY TO COMPLETE THE MED REC PT WAS ABLE TO NAME HER MEDICATION WELL HOW/WHEN SHE TAKES EACH- THIS INFORMATION MATCHED THE EXT MED HISTORY. ALL PRESCRIPTION MEDICATIONS THE PT TAKES AROUND 1800 OTC MEDS: WOMEN MTV VIT D VIT B12 CRANBERRY FIBER GUMMY BIOTIN MAGNESIUM TURMERIC VISINE DRY EYE
[2019-09-06 12:06] LABS: HEPATITIS C ANTIBODY C Non-Reactive (Non-Reactive)
--- NOTE | 2019-09-06 12:57 | Progress Note ---
Standard Progress Note Progress Notes/Assess & Plan Date Seen by a Provider: Sep 06, 2019 Time Seen by a Provider: 12:44 Progress/Assessment & Plan 69-year-old female admitted to the hospital with symptomatic anemia. Workup showed high reticulocyte count, elevated bilirubin and LDH level as well as low haptoglobin and positive KEVIN against IgG but negative for complement consistent with warm AIHA. CTA chest negative for PE and bilateral lower extremity Doppler studies pending. Patient received 1 unit of least incompatible blood yesterday and tolerated this. She was also started on immunosuppression with prednisone 100 mg daily. She is feeling better today and denied any new complaints. Vital Sign - Last 12Hours Date Time Temp Pulse Resp B/P (MAP) Pulse Ox O2 Delivery O2 Flow Rate FiO2 09/06/19 12:13 59 09/06/19 11:45 37.1 20 130/68 (88) 99 Room Air On examination she appeared better with reduction in pallor. Rest of the exam unchanged. Laboratory Tests 09/06/19 05:45 Haptoglobin < 8. CTA with no evidence of PE but dilated pulmonary artery raising the possibility of pulmonary hypertension. Splenomegaly seen on partial CTA chest. Absolute reticulocyte count still high but better than yesterday. LDH in 400 range. A/P: 1. AIHA of undetermined etiology. Started on immunosuppression with prednisone 100 mg daily since yesterday. Patient is tolerating this and I addressed her to continue this with a slow taper anticipated. We will plan on adding in Rituxan later this week. 2. Symptomatic anemia, status post transfusion with 1 unit of least incompatible blood yesterday. Patient tolerated this well with the improvement in hemoglobin level. Monitor labs serially. 3. Continue prophylactic anticoagulation as the risk of DVT is significant. 4. Increase activity as tolerated. 5. Splenomegaly noted partially on CTA chest. Patient will need CT scan of the abdomen and pelvis and will try to arrange this on an outpatient basis. 6. If lab work is continuing to improve tomorrow along with clinical improvement, we may consider discharge home. MICHAEL SYKES Sep 06, 2019 12:57
--- NOTE | 2019-09-06 15:42 | Progress Note - Hospitalist ---
Subjective HPI/CC On Admission Date Seen by Provider: Sep 06, 2019 Time Seen by Provider: 10:40 patient is a 69-year-old female with past medical history of hypertension, hyperlipidemia, depression who presented to the emergency department due to weakness and shortness of breath 1 week. She states she is normally very active and is out riding horses at meals regularly. For the past week she has been very short of breath with any exertion and has had no stamina. On 08/30 she was tested for COVID-19 and the results came back negative yesterday. She continued to worsen so was seen by her primary care doctor and labs were done. This revealed a hemoglobin of 7.6. She was sent to the emergency department for evaluation due to this. In the ER her hemoglobin was 7.0. She denies any dark or bloody stools. She denies any vaginal bleeding. She denies any hematochezia or hemoptysis. She has had a colonoscopy most recently 6 years ago. She states that this was normal. Of note she was recently started on Celebrex. She has never had an EGD done. Hemoglobin this morning is 6.7. Subjective/Events-last exam she reports feeling much better this morning. She is feeling less weak. She de nies any fevers or chills. She denies any chest pain or shortness of breath. She denies any nausea, vomiting, or abdominal pain. She has no other complaints or concerns. Objective Exam Vital Signs Vital Signs Date Time Temp Pulse Resp B/P (MAP) Pulse Ox O2 Delivery O2 Flow Rate FiO2 09/06/19 12:13 59 09/06/19 11:45 37.1 20 130/68 (88) 99 Room Air Capillary Refill : Less Than 3 SecondsLess Than 3 Seconds General Appearance: No Apparent Distress, WD/WN Neck: Normal Inspection, Supple Respiratory: Lungs Clear, Normal Breath Sounds, No Respiratory Distress Cardiovascular: Regular Rate, Rhythm, No Edema, No Murmur Gastrointestinal: Normal Bowel Sounds, Non Tender, Soft Extremity: Normal Inspection, Non Tender, No Pedal Edema Neurologic/Psychiatric: Alert, Oriented x3, No Motor/Sensory Deficits, Normal Mood/Affect Skin: Normal Color, Warm/Dry Results/Procedures Lab Laboratory Tests 09/06/19 05:45 Patient resulted labs reviewed. Imaging: Reviewed Imaging Report Assessment/Plan Assessment and Plan Assess & Plan/Chief Complaint Autoimmune hemolytic anemia haptoglobin undetectable, LDH elevated, total bilirubin elevated Hematology consulted, appreciate assistance started on prednisone Will likely begin rituximab as an outpatient Dopplers pending CT negative for PE likely discharge tomorrow HTN HLD Continue statin home antihypertensive held with normotension Arthritis Hold Celebrex Depression Fluoxetine DVT prophylaxis: Lovenox Diagnosis/Problems Diagnosis/Problems (1) Autoimmune hemolytic anemia Status: Acute Clinical Quality Measures DVT/VTE Risk/Contraindication: Risk Factor Score Per Nursin RFS Level Per Nursing on Admit: 2=Moderate PRITESH CHAVES MD Sep 06, 2019 15:42
--- NOTE | 2019-09-06 15:45 | Diagnostic Imaging Report ---
INDICATION: Shortness of breath. Bilateral lower extremity venous Doppler study was performed in the routine fashion with color flow Doppler and waveform analysis. FINDINGS: The common femoral veins, superficial femoral veins, popliteal veins and visualized portion of the tibial veins show normal compressibility and venous flow patterns. There is normal augmentation. IMPRESSION: No evidence of deep vein thrombosis in the major veins of both legs. Dictated by: Dictated on workstation # [id number]
--- NOTE | 2019-09-06 17:38 | Progress Note - Surgery ---
Subjective Date Seen by a Provider: Sep 06, 2019 Time Seen by a Provider: 08:34 Subjective/Events-last exam Feeling better today. Hgb up. Feels more like her self. No abdominal pain. No blood in stools. Denies n/v fever sweats chills shortness of breath or chest pain. Objective Exam Vital Signs Date Time Temp Pulse Resp B/P (MAP) Pulse Ox O2 Delivery O2 Flow Rate FiO2 09/06/19 16:00 37.2 58 18 121/73 (89) 98 Room Air 09/06/19 12:13 59 09/06/19 11:45 37.1 62 20 130/68 (88) 99 Room Air 09/06/19 08:00 98 Room Air 09/06/19 07:45 37.2 55 20 128/57 (80) 98 Room Air 09/06/19 07:00 65 09/06/19 05:47 36.8 58 21 110/53 (72) 97 Room Air 09/06/19 04:00 36.8 58 21 110/53 (72) 97 Room Air 09/06/19 01:00 64 09/06/19 00:00 36.5 62 20 114/56 (75) 97 Room Air 09/05/19 20:00 97 Room Air 09/05/19 19:43 37.4 50 14 110/56 (74) 95 Room Air 09/05/19 19:00 52 I & O 09/06/19 07:00 Intake Total 2837 ml Output Total 1750 ml Balance 1087 ml Capillary Refill : Less Than 3 SecondsLess Than 3 Seconds General Appearance: No Apparent Distress, WD/WN HEENT: PERRL/EOMI, Moist Mucous Membranes; No Scleral Icterus (L), No Scleral Icterus (R) Neck: Normal Inspection, Supple Respiratory: Chest Non Tender, No Accessory Muscle Use, No Respiratory Distress Cardiovascular: Regular Rate, Rhythm, No Murmur Gastrointestinal: non tender, soft, no organomegaly Extremity: Normal Inspection, Non Tender, No Pedal Edema Neurologic/Psychiatric: Alert, Oriented x3, No Motor/Sensory Deficits, Normal Mood/Affect Skin: Normal Color, Warm/Dry Lymphatic: No Adenopathy Results Lab Laboratory Tests 09/06/19 05:45: White Blood Count 1.6L, Red Blood Count 2.26L, Hemoglobin 7.2L, Hematocrit 22L, Mean Corpuscular Volume 96, Mean Corpuscular Hemoglobin 32, Mean Corpuscular Hemoglobin Concent 33, Red Cell Distribution Width 20.9H, Platelet Count 253, Mean Platelet Volume 10.2, Neutrophils (%) (Auto) 42, Lymphocytes (%) (Auto) 32, Monocytes (%) (Auto) 25H, Eosinophils (%) (Auto) 1, Basophils (%) (Auto) 1, Neutrophils # (Auto) 0.7L, Lymphocytes # (Auto) 0.5L, Monocytes # (Auto) 0.4, Eosinophils # (Auto) 0.0, Basophils # (Auto) 0.0, Absolute Reticulocyte Count 383H, Percent Reticulocyte Count 16.96H, Sodium Level 142, Potassium Level 3.6, Chloride Level 108H, Carbon Dioxide Level 23, Anion Gap 11, Blood Urea Nitrogen 18, Creatinine 0.74, Estimat Glomerular Filtration Rate > 60, BUN/Creatinine Ratio 24, Glucose Level 129H, Calcium Level 9.0, Corrected Calcium 9.2, Total Bilirubin 1.9H, Aspartate Amino Transf (AST/SGOT) 26, Alanine Aminotransferase (ALT/SGPT) 11, Alkaline Phosphatase 64, Lactate Dehydrogenase 400H, Total Protein 6.0L, Albumin 3.8 09/06/19 12:25: Lab Scanned Report Transfusion Reaction Form Assessment/Plan Assessment/Plan Assessment/Plan weakness dyspnea on exertion hemolytic anemia symptomatic anemia history of polyps. splenomegaly will hold off on endoscopy for now, is due for colonoscopy due to polyps- plan outpatient unless change in condition transfusing blood prn splenomegaly-further evaluation planned outpatient Protonix diet Clinical Quality Measures DVT/VTE Risk/Contraindication: Risk Factor Score Per Nursin RFS Level Per Nursing on Admit: 2=Moderate ZEINA DILLARD DO Sep 06, 2019 17:38
[2019-09-06] MEDS: PANTOPRAZOLE 40 MG (PROTONIX) TAB PO SCH (20:28)
[2019-09-06] MEDS: SIMvastatin 20 MG (ZOCOR) TAB PO SCH (20:28)
[2019-09-07 04:00] VITALS: BP 142/69
[2019-09-07] MEDS: predniSONE 20 MG TAB PO SCH (06:17)
[2019-09-07 06:26] LABS: ABSOLUTE RETIC # 399 10e9/L (24-90); BASOPHILS % (AUTO) 1 % (0-10); EOSINOPHILS % (AUTO) 1 % (0-10); HEMATOCRIT 23 % (35-52); HEMOGLOBIN 7.4 G/DL (11.5-16.0); LYMPHOCYTES # (AUTO) 0.9 X 10^3 (1.0-4.0); LYMPHOCYTES % (AUTO) 51 % (12-44); MEAN CORPUSCULAR HGB CONC 33 G/DL (32-36); MEAN CORPUSCULAR VOLUME 100 FL (80-99); MEAN PLATELET VOLUME 9.4 FL (7.4-10.4); MONOCYTES # (AUTO) 0.4 X 10^3 (0.0-1.0); MONOCYTES % (AUTO) 23 % (0-12); NEUTROPHILS # (AUTO) 0.4 X 10^3 (1.8-7.8); NEUTROPHILS % (AUTO) 24 % (42-75); PLATELET COUNT 251 10^3/uL (130-400); RED CELL DISTRIBUTION WIDTH 21.1 % (10.0-14.5); WHITE BLOOD COUNT 1.7 10^3/uL (4.3-11.0)
[2019-09-07 06:29] LABS: MEAN CORPUSCULAR HEMOGLOBIN 32 PG (25-34)
[2019-09-07 06:40] LABS: ALBUMIN 3.9 GM/DL (3.2-4.5); CHLORIDE 108 MMOL/L (98-107); POTASSIUM 3.6 MMOL/L (3.6-5.0); SODIUM 143 MMOL/L (135-145)
[2019-09-07 06:41] LABS: CALCIUM 8.8 MG/DL (8.5-10.1)
[2019-09-07 06:42] LABS: GLUCOSE 88 MG/DL (70-105)
[2019-09-07 06:44] LABS: BILIRUBIN,TOTAL 1.8 MG/DL (0.1-1.0); CARBON DIOXIDE 25 MMOL/L (21-32)
[2019-09-07 06:46] LABS: ALKALINE PHOSPHATASE 57 U/L (40-136); CREATININE SERUM 0.76 MG/DL (0.60-1.30); GFR ESTIMATED > 60
[2019-09-07 06:47] LABS: BUN/CREATININE RATIO 32
[2019-09-07 06:49] LABS: ALANINE AMINOTRANSFERASE 9 U/L (0-55)
[2019-09-07 08:00] VITALS: BP 135/61
[2019-09-07] MEDS: PANTOPRAZOLE 40 MG (PROTONIX) TAB PO SCH (09:19)
[2019-09-07] MEDS: FLUoxetine HCL 20 MG (PROzac) CAP PO SCH (09:19)
[2019-09-07] MEDS: FOLIC ACID 1 MG TAB PO SCH (09:19)
[2019-09-07] MEDS: ENOXAPARIN 40 MG/0.4 ML (LOVENOX) SYR SQ SCH (11:09)
--- NOTE | 2019-09-07 11:55 | Progress Note ---
Standard Progress Note Progress Notes/Assess & Plan Date Seen by a Provider: Sep 07, 2019 Time Seen by a Provider: 08:45 Progress/Assessment & Plan 69-year-old female admitted to the hospital with symptomatic anemia. Workup showed high reticulocyte count, elevated bilirubin and LDH level as well as low haptoglobin and positive KEVIN against IgG but negative for complement consistent with warm AIHA. CTA chest negative for PE and bilateral lower extremity Doppler studies negative. Patient received 1 unit of least incompatible blood on admission. She was also started on immunosuppression with prednisone 100 mg daily. She is feeling better and denied any new complaints. Vital Sign - Last 12Hours Date Time Temp Pulse Resp B/P (MAP) Pulse Ox O2 Delivery O2 Flow Rate FiO2 09/07/19 08:00 36.5 55 21 135/61 (85) 98 Room Air On examination she appeared better. No new findings. Laboratory Tests 09/07/19 06:15 A/P: 1. AIHA of undetermined etiology. Started on immunosuppression with prednisone 100 mg daily since 09/05/2019. Patient is tolerating this and I advissed her to continue this. We will plan on adding in Rituxan later this week. 2. Symptomatic anemia, status post transfusion with 1 unit of least incompatible blood yesterday. Hemoglobin stable to better. Retic high. 3. Splenomegaly noted partially on CTA chest. Patient will need CT scan of the abdomen and pelvis and will try to arrange this on an outpatient basis. 4. Okay for discharge home. Continue Prednisone 100 mg daily with food, Folic acid 1 mg daily, PPI daily. 5. Followup at cancer center on 09/09/2019 at 08:45 for labs and visit. MICHAEL SYKES Sep 07, 2019 11:55
[2019-09-07 12:00] VITALS: BP 135/61
[2019-09-07] MEDS ORDERED: Folic Acid PO (12:31)
[2019-09-07] MEDS ORDERED: PANT40TA3 PO (12:31)
[2019-09-07] MEDS ORDERED: PRD50T PO (12:32)
--- NOTE | 2019-09-07 13:54 | Discharge Summary ---
Discharge Summary Hospital Course Was the Problem List Reviewed?: Yes Problems/Dx: (1) Autoimmune hemolytic anemia Status: Acute Hospital Course Date of Admission: Sep 04, 2019 at 13:14 Admission Diagnosis : symptomatic anemia Family Physician/Provider: Анна Collier MD Date of Discharge: 09/07/19 Discharge Diagnosis: autoimmune hemolytic anemia Hospital Course: Domitila Mccann is a 69-year-old female who presented with shortness of breath and was admitted with symptomatic anemia. Her workup revealed in autoimmune hemolytic anemia. Hematology was consulted and Dr. Mcknight assisted with her care. She was started on prednisone. She required 1 transfusion during her hospital stay. She will follow-up with him in the cancer center for likely rituximab infusions. There were pending labs at discharge with fara be followed up by Dr. Mcknight. Labs and Pending Lab Test: Laboratory Tests 09/07/19 06:15: White Blood Count 1.7L, Red Blood Count 2.28L, Hemoglobin 7.4L, Hematocrit 23L, Mean Corpuscular Volume 100H, Mean Corpuscular Hemoglobin 32, Mean Corpuscular Hemoglobin Concent 33, Red Cell Distribution Width 21.1H, Platelet Count 251, Mean Platelet Volume 9.4, Neutrophils (%) (Auto) 24L, Lymphocytes (%) (Auto) 51H , Monocytes (%) (Auto) 23H, Eosinophils (%) (Auto) 1, Basophils (%) (Auto) 1, Neutrophils # (Auto) 0.4L, Lymphocytes # (Auto) 0.9L, Monocytes # (Auto) 0.4, Eosinophils # (Auto) 0.0, Basophils # (Auto) 0.0, Absolute Reticulocyte Count 399H, Percent Reticulocyte Count 17.50H, Sodium Level 143, Potassium Level 3.6, Chloride Level 108H, Carbon Dioxide Level 25, Anion Gap 10, Blood Urea Nitrogen 24H, Creatinine 0.76, Estimat Glomerular Filtration Rate > 60, BUN/Creatinine Ratio 32, Glucose Level 88, Calcium Level 8.8, Corrected Calcium 8.9, Total B ilirubin 1.8H, Aspartate Amino Transf (AST/SGOT) 23, Alanine Aminotransferase (ALT/SGPT) 9, Alkaline Phosphatase 57, Lactate Dehydrogenase 445H, Total Protein 6.0L, Albumin 3.9 Home Meds Active Prednisone 50 Mg Tab 100 Mg PO DAILY 14 Days [Folic Acid] 1 MG Tab 1 Mg PO DAILY 30 Days Pantoprazole Sodium 40 Mg Tablet.dr 40 Mg PO BID 30 Days Reported Turmeric (Turmeric Root Extract) 538 Mg Capsule 538 Mg PO DAILY Magnesium (Magnesium Oxide) 400 Mg Tablet 400 Mg PO DAILY Visine Dry Eye Relief Drop (Peg 400/Hypromellose/Glycerin) 15 Ml Drops 2 Drops OU PRN PRN Biotin 1,000 Mcg Tab.chew 1,000 Mcg PO DAILY Fiber Gummies (Inulin/Chromium Picolinate) 1 Each Tab.chew 1 Each PO DAILY Cranberry (Cranberry Fruit) 500 Mg Tab.chew 500 Mg PO DAILY Vitamin B12 (Cyanocobalamin (Vitamin B-12)) 2,500 Mcg Tab.chew 2,500 Mcg PO DAILY Vitamin D3 (Cholecalciferol (Vitamin D3)) 25 Mcg Tab.chew 25 Mcg PO DAILY Women's Multivitamin Gummies (Folic Acid/Multivit-Minerals) 200 Mcg Tab.chew 200 Mcg PO DAILY Estradiol 42.5 Gm Cream.appl 1 Appful VG WEEKLY Ventolin Hfa (Albuterol Sulfate) 18 Gm Hfa.aer.ad 2 Puff PO Q4H PRN Spironolactone 100 Mg Tablet 100 Mg PO 1800 Simvastatin 20 Mg Tablet 20 Mg PO 1800 Moexipril HCl 7.5 Mg Tablet 7.5 Mg PO 1800 Fluoxetine HCl 20 Mg Capsule 20 Mg PO 1800 Assessment/Pt Instructions take medications as prescribed. Follow-up with Dr. Mcknight in the cancer center. Discharge Planning: <30 minutes discharge planning Discharge Instructions Discharge Diet: No Restrictions Activity as Tolerated: Yes Consultations hematology Discharge Physical Examination Vital Signs Vital Signs Date Time Temp Pulse Resp B/P (MAP) Pulse Ox O2 Delivery O2 Flow Rate FiO2 09/07/19 12:00 36.5 55 21 135/61 98 Room Air General Appearance: No Apparent Distress, WD/WN Respiratory: Lungs Clear, Normal Breath Sounds, No Respiratory Distress Cardiovascular: Regular Rate, Rhythm, No Edema, No Murmur Gastrointestinal: Normal Bowel Sounds, Non Tender, Soft Extremity: Normal Inspection, Non Tender, No Pedal Edema Skin: Normal Color, Warm/Dry Neurologic/Psychiatric: Alert, Oriented x3, No Motor/Sensory Deficits, Normal Mood/Affect Allergies: Coded Allergies: NKANo Known Allergies (Verified Allergy, Unknown, 12/27/05) Copy Copies To 1: АННА COLLIER MD Discharge Summary Date of Admission Sep 04, 2019 at 13:14 Date of Discharge Discharge Date: Sep 07, 2019 Discharge Time: 13:54 Admission Diagnosis Anemia Discharge Diagnosis Autoimmune hemolytic anemia (1) Autoimmune hemolytic anemia Status: Acute Clinical Quality Measures DVT/VTE Risk/Contraindication: Risk Factor Score Per Nursin RFS Level Per Nursing on Admit: 2=Moderate PRITESH CHAVES MD Sep 07, 2019 13:48
--- NOTE | 2019-09-07 16:55 | Progress Note - Surgery ---
Subjective Date Seen by a Provider: Sep 07, 2019 Time Seen by a Provider: 11:22 Subjective/Events-last exam Patient feeling well. Tolerating diet. Wanting to go home. Hgb stable. Denies n/v fever sweats chills shortness of breath or chest pain. Objective Exam Vital Signs Date Time Temp Pulse Resp B/P (MAP) Pulse Ox O2 Delivery O2 Flow Rate FiO2 09/07/19 12:00 36.5 55 21 135/61 98 Room Air 09/07/19 08:00 36.5 55 21 135/61 (85) 98 Room Air 09/07/19 08:00 98 Room Air 09/07/19 07:00 51 09/07/19 04:00 36.9 51 20 142/69 (93) 99 Room Air 09/07/19 01:00 60 09/06/19 23:35 107/59 (75) Room Air 09/06/19 20:35 Room Air 09/06/19 20:02 36.9 59 20 114/56 (75) 96 Room Air 09/06/19 19:00 71 I & O 09/07/19 07:00 Intake Total 2080 ml Output Total 2000 ml Balance 80 ml Capillary Refill : Less Than 3 SecondsNONE General Appearance: No Apparent Distress, WD/WN HEENT: PERRL/EOMI, Moist Mucous Membranes; No Scleral Icterus (L), No Scleral Icterus (R) Neck: Normal Inspection, Supple Respiratory: Chest Non Tender, No Accessory Muscle Use, No Respiratory Distress Cardiovascular: Regular Rate, Rhythm Gastrointestinal: non tender, soft, no organomegaly Extremity: Normal Inspection, Non Tender, No Pedal Edema Neurologic/Psychiatric: Alert, Oriented x3, No Motor/Sensory Deficits, Normal Mood/Affect Skin: Normal Color, Warm/Dry Lymphatic: No Adenopathy Results Lab Laboratory Tests 09/07/19 06:15: White Blood Count 1.7L, Red Blood Count 2.28L, Hemoglobin 7.4L, Hematocrit 23L, Mean Corpuscular Volume 100H, Mean Corpuscular Hemoglobin 32, Mean Corpuscular Hemoglobin Concent 33, Red Cell Distribution Width 21.1H, Platelet Count 251, Mean Platelet Volume 9.4, Neutrophils (%) (Auto) 24L, Lymphocytes (%) (Auto) 51H , Monocytes (%) (Auto) 23H, Eosinophils (%) (Auto) 1, Basophils (%) (Auto) 1, Neutrophils # (Auto) 0.4L, Lymphocytes # (Auto) 0.9L, Monocytes # (Auto) 0.4, Eosinophils # (Auto) 0.0, Basophils # (Auto) 0.0, Absolute Reticulocyte Count 399H, Percent Reticulocyte Count 17.50H, Sodium Level 143, Potassium Level 3.6, Chloride Level 108H, Carbon Dioxide Level 25, Anion Gap 10, Blood Urea Nitrogen 24H, Creatinine 0.76, Estimat Glomerular Filtration Rate > 60, BUN/Creatinine Ratio 32, Glucose Level 88, Calcium Level 8.8, Corrected Calcium 8.9, Total Bilirubin 1.8H, Aspartate Amino Transf (AST/SGOT) 23, Alanine Aminotransferase (ALT/SGPT) 9, Alkaline Phosphatase 57, Lactate Dehydrogenase 445H, Total Protein 6.0L, Albumin 3.9 Assessment/Plan Assessment/Plan Assessment/Plan weakness dyspnea on exertion hemolytic anemia symptomatic anemia history of polyps. splenomegaly will hold off on endoscopy for now, is due for colonoscopy due to polyps- plan outpatient unless change in condition transfusing blood prn splenomegaly-further evaluation planned outpatient ct abd/pelvis Protonix diet ok to dc from surgical standpoint Clinical Quality Measures DVT/VTE Risk/Contraindication: Risk Factor Score Per Nursin RFS Level Per Nursing on Admit: 2=Moderate ZEINA DILLARD DO Sep 07, 2019 16:55
== END 2019-09-07 13:15 | disposition home or self-care (01) | DRG 810 ==
LOC: EDUNIT# 14:39 → ER 14:40 → 4TH 16:00 → OBSVTOIN 09-04 13:14
PROVIDERS: ADMIT Family Medicine; ATTEND Family Medicine
DX: D59.1 Other autoimmune hemolytic anemias (principal); M06.9 Rheumatoid arthritis, unspecified; M19.91 Primary osteoarthritis, unspecified site; M81.0 Age-related osteoporosis without current pathological fracture; M54.2 Cervicalgia; J45.909 Unspecified asthma, uncomplicated; I10 Essential (primary) hypertension; F17.210 Nicotine dependence, cigarettes, uncomplicated; R11.0 Nausea; R60.9 Edema, unspecified; E78.5 Hyperlipidemia, unspecified; F32.9 Major depressive disorder, single episode, unspecified; E66.9 Obesity, unspecified; Z86.010 Personal history of colon polyps; Z79.899 Other long term (current) drug therapy; Z98.1 Arthrodesis status; Z85.41 Personal history of malignant neoplasm of cervix uteri; Z68.30 Body mass index [BMI] 30.0-30.9, adult
CPT/HCPCS: 36415; 71045; 71275; 80048; 80053; 80074; 82247; 82274; 82550; 82553; 82728; 82784; 83010; 83540; 83615; 83735; 83874; 83880; 84155; 84165; 84484; 85007; 85025; 85027; 85045; 85610; 85730; 86038; 86039; 86703; 86850; 86870; 86900; 86901; 86920; 86922; 93005; 93041; 93970; 96361; 96374; G0378

== ENCOUNTER 2019-12-02 10:51 | Outpatient (RCR) | payer MEDICARE ==
[2019-09-09 10:21] LABS: ABSOLUTE RETIC # 465 10e9/L (24-90); BASOPHILS % (AUTO) 1 % (0-10); EOSINOPHILS % (AUTO) 1 % (0-10); HEMATOCRIT 26 % (35-52); HEMOGLOBIN 8.6 G/DL (11.5-16.0); LYMPHOCYTES # (AUTO) 0.6 X 10^3 (1.0-4.0); LYMPHOCYTES % (AUTO) 29 % (12-44); MEAN CORPUSCULAR HEMOGLOBIN 33 PG (25-34); MEAN CORPUSCULAR HGB CONC 34 G/DL (32-36); MEAN CORPUSCULAR VOLUME 99 FL (80-99); MEAN PLATELET VOLUME 9.6 FL (7.4-10.4); MONOCYTES # (AUTO) 0.5 X 10^3 (0.0-1.0); MONOCYTES % (AUTO) 21 % (0-12); NEUTROPHILS % (AUTO) 49 % (42-75); PLATELET COUNT 344 10^3/uL (130-400); RED CELL DISTRIBUTION WIDTH 19.5 % (10.0-14.5); RETICULOCYTE % 17.89 % (0.50-2.40); WHITE BLOOD COUNT 2.1 10^3/uL (4.3-11.0)
[2019-09-09 10:44] LABS: ALANINE AMINOTRANSFERASE 32 U/L (0-55); ALBUMIN 4.3 GM/DL (3.2-4.5); ALKALINE PHOSPHATASE 64 U/L (40-136); BILIRUBIN,TOTAL 1.6 MG/DL (0.1-1.0); BUN/CREATININE RATIO 31; CARBON DIOXIDE 23 MMOL/L (21-32); CHLORIDE 105 MMOL/L (98-107); CREATININE SERUM 0.77 MG/DL (0.60-1.30); GFR ESTIMATED > 60; GLUCOSE 116 MG/DL (70-105); POTASSIUM 3.7 MMOL/L (3.6-5.0); SODIUM 139 MMOL/L (135-145); TOTAL PROTEIN 6.6 GM/DL (6.4-8.2)
[2019-09-16 10:28] LABS: ABSOLUTE RETIC # 263 10e9/L (24-90); BASOPHILS % (AUTO) 0 % (0-10); EOSINOPHILS % (AUTO) 2 % (0-10); HEMATOCRIT 23 % (35-52); HEMOGLOBIN 7.3 G/DL (11.5-16.0); LYMPHOCYTES # (AUTO) 0.5 X 10^3 (1.0-4.0); LYMPHOCYTES % (AUTO) 25 % (12-44); MEAN CORPUSCULAR HEMOGLOBIN 33 PG (25-34); MEAN CORPUSCULAR HGB CONC 32 G/DL (32-36); MEAN CORPUSCULAR VOLUME 103 FL (80-99); MEAN PLATELET VOLUME 9.3 FL (7.4-10.4); MONOCYTES # (AUTO) 0.5 X 10^3 (0.0-1.0); MONOCYTES % (AUTO) 27 % (0-12); NEUTROPHILS % (AUTO) 47 % (42-75); PLATELET COUNT 336 10^3/uL (130-400); RED CELL DISTRIBUTION WIDTH 18.1 % (10.0-14.5); RETICULOCYTE % 11.95 % (0.50-2.40)
[2019-09-16 10:43] LABS: ALANINE AMINOTRANSFERASE 25 U/L (0-55); ALKALINE PHOSPHATASE 44 U/L (40-136); BILIRUBIN,TOTAL 1.9 MG/DL (0.1-1.0); BUN/CREATININE RATIO 30; CALCIUM 8.9 MG/DL (8.5-10.1); CARBON DIOXIDE 26 MMOL/L (21-32); CHLORIDE 105 MMOL/L (98-107); CREATININE SERUM 0.83 MG/DL (0.60-1.30); GFR ESTIMATED > 60; GLUCOSE 104 MG/DL (70-105); POTASSIUM 3.6 MMOL/L (3.6-5.0); SODIUM 142 MMOL/L (135-145); TOTAL PROTEIN 5.9 GM/DL (6.4-8.2)
[2019-09-23 11:16] LABS: HEMOGLOBIN 7.5 G/DL (11.5-16.0); MEAN PLATELET VOLUME 8.9 FL (7.4-10.4); RED CELL DISTRIBUTION WIDTH 18.6 % (10.0-14.5); RETICULOCYTE % 16.7 % (0.50-2.40); WHITE BLOOD COUNT 4.6 10^3/uL (4.3-11.0)
[2019-09-23 11:35] LABS: ALANINE AMINOTRANSFERASE 21 U/L (0-55); ALBUMIN 4.2 GM/DL (3.2-4.5); ALKALINE PHOSPHATASE 37 U/L (40-136); BILIRUBIN,TOTAL 1.9 MG/DL (0.1-1.0); BUN/CREATININE RATIO 34; CARBON DIOXIDE 26 MMOL/L (21-32); CHLORIDE 105 MMOL/L (98-107); CREATININE SERUM 0.92 MG/DL (0.60-1.30); GFR ESTIMATED > 60; GLUCOSE 108 MG/DL (70-105); SODIUM 140 MMOL/L (135-145); TOTAL PROTEIN 6.1 GM/DL (6.4-8.2)
[2019-09-30 10:16] LABS: ABSOLUTE RETIC # 325 10e9/L (24-90); BASOPHILS % (AUTO) 0 % (0-10); EOSINOPHILS % (AUTO) 1 % (0-10); HEMATOCRIT 24 % (35-52); LYMPHOCYTES # (AUTO) 0.4 X 10^3 (1.0-4.0); LYMPHOCYTES % (AUTO) 7 % (12-44); MEAN CORPUSCULAR HEMOGLOBIN 36 PG (25-34); MEAN CORPUSCULAR HGB CONC 33 G/DL (32-36); MEAN CORPUSCULAR VOLUME 108 FL (80-99); MEAN PLATELET VOLUME 8.8 FL (7.4-10.4); MONOCYTES # (AUTO) 0.4 X 10^3 (0.0-1.0); MONOCYTES % (AUTO) 7 % (0-12); NEUTROPHILS # (AUTO) 4.5 X 10^3 (1.8-7.8); NEUTROPHILS % (AUTO) 85 % (42-75); PLATELET COUNT 275 10^3/uL (130-400); RED CELL DISTRIBUTION WIDTH 17.4 % (10.0-14.5); RETICULOCYTE % 14.56 % (0.50-2.40); WHITE BLOOD COUNT 5.3 10^3/uL (4.3-11.0)
[2019-09-30 10:38] LABS: ALANINE AMINOTRANSFERASE 27 U/L (0-55); ALKALINE PHOSPHATASE 36 U/L (40-136); BILIRUBIN,TOTAL 1.4 MG/DL (0.1-1.0); BUN/CREATININE RATIO 28; CALCIUM 8.8 MG/DL (8.5-10.1); CARBON DIOXIDE 24 MMOL/L (21-32); CHLORIDE 105 MMOL/L (98-107); CREATININE SERUM 0.85 MG/DL (0.60-1.30); GFR ESTIMATED > 60; GLUCOSE 115 MG/DL (70-105); SODIUM 140 MMOL/L (135-145); TOTAL PROTEIN 5.8 GM/DL (6.4-8.2)
[2019-10-07 11:05] LABS: ABSOLUTE RETIC # 305 10e9/L (24-90); BASOPHILS % (AUTO) 0 % (0-10); EOSINOPHILS # (AUTO) 0.1 10^3/uL (0.0-0.3); EOSINOPHILS % (AUTO) 1 % (0-10); HEMATOCRIT 26 % (35-52); HEMOGLOBIN 8.5 G/DL (11.5-16.0); LYMPHOCYTES # (AUTO) 0.4 X 10^3 (1.0-4.0); LYMPHOCYTES % (AUTO) 4 % (12-44); MEAN CORPUSCULAR HEMOGLOBIN 35 PG (25-34); MEAN CORPUSCULAR HGB CONC 33 G/DL (32-36); MEAN CORPUSCULAR VOLUME 106 FL (80-99); MEAN PLATELET VOLUME 8.7 FL (7.4-10.4); MONOCYTES # (AUTO) 0.3 X 10^3 (0.0-1.0); MONOCYTES % (AUTO) 3 % (0-12); NEUTROPHILS # (AUTO) 8.3 X 10^3 (1.8-7.8); NEUTROPHILS % (AUTO) 92 % (42-75); PLATELET COUNT 267 10^3/uL (130-400); RETICULOCYTE % 12.67 % (0.50-2.40); WHITE BLOOD COUNT 9.1 10^3/uL (4.3-11.0)
[2019-10-07 11:28] LABS: ALANINE AMINOTRANSFERASE 21 U/L (0-55); ALKALINE PHOSPHATASE 36 U/L (40-136); BILIRUBIN,TOTAL 1.4 MG/DL (0.1-1.0); BUN/CREATININE RATIO 32; CALCIUM 8.9 MG/DL (8.5-10.1); CARBON DIOXIDE 28 MMOL/L (21-32); CHLORIDE 108 MMOL/L (98-107); CREATININE SERUM 0.81 MG/DL (0.60-1.30); GFR ESTIMATED > 60; GLUCOSE 121 MG/DL (70-105); POTASSIUM 3.8 MMOL/L (3.6-5.0); SODIUM 143 MMOL/L (135-145)
[2019-10-14 10:23] LABS: ABSOLUTE RETIC # 269 10e9/L (24-90); BASOPHILS % (AUTO) 0 % (0-10); EOSINOPHILS % (AUTO) 0 % (0-10); HEMATOCRIT 27 % (35-52); HEMOGLOBIN 8.9 G/DL (11.5-16.0); LYMPHOCYTES # (AUTO) 0.4 X 10^3 (1.0-4.0); LYMPHOCYTES % (AUTO) 4 % (12-44); MEAN CORPUSCULAR HEMOGLOBIN 34 PG (25-34); MEAN CORPUSCULAR HGB CONC 33 G/DL (32-36); MEAN CORPUSCULAR VOLUME 104 FL (80-99); MEAN PLATELET VOLUME 8.7 FL (7.4-10.4); MONOCYTES # (AUTO) 0.3 X 10^3 (0.0-1.0); MONOCYTES % (AUTO) 3 % (0-12); NEUTROPHILS # (AUTO) 8.6 X 10^3 (1.8-7.8); NEUTROPHILS % (AUTO) 93 % (42-75); PLATELET COUNT 280 10^3/uL (130-400); RED CELL DISTRIBUTION WIDTH 15.8 % (10.0-14.5); RETICULOCYTE % 10.36 % (0.50-2.40); WHITE BLOOD COUNT 9.2 10^3/uL (4.3-11.0)
[2019-10-14 10:40] LABS: ALANINE AMINOTRANSFERASE 21 U/L (0-55); ALBUMIN 4.1 GM/DL (3.2-4.5); ALKALINE PHOSPHATASE 38 U/L (40-136); BILIRUBIN,TOTAL 1.7 MG/DL (0.1-1.0); BUN/CREATININE RATIO 34; CALCIUM 9.2 MG/DL (8.5-10.1); CARBON DIOXIDE 31 MMOL/L (21-32); CHLORIDE 106 MMOL/L (98-107); CREATININE SERUM 0.74 MG/DL (0.60-1.30); GFR ESTIMATED > 60; GLUCOSE 111 MG/DL (70-105); POTASSIUM 4.1 MMOL/L (3.6-5.0); SODIUM 142 MMOL/L (135-145)
[2019-10-21 10:37] LABS: ABSOLUTE RETIC # 321 10e9/L (24-90); BASOPHILS % (AUTO) 0 % (0-10); EOSINOPHILS % (AUTO) 0 % (0-10); HEMATOCRIT 30 % (35-52); LYMPHOCYTES # (AUTO) 0.5 X 10^3 (1.0-4.0); LYMPHOCYTES % (AUTO) 4 % (12-44); MEAN CORPUSCULAR HEMOGLOBIN 34 PG (25-34); MEAN CORPUSCULAR HGB CONC 34 G/DL (32-36); MEAN CORPUSCULAR VOLUME 102 FL (80-99); MEAN PLATELET VOLUME 9.1 FL (7.4-10.4); MONOCYTES # (AUTO) 0.4 X 10^3 (0.0-1.0); MONOCYTES % (AUTO) 3 % (0-12); NEUTROPHILS # (AUTO) 12.9 X 10^3 (1.8-7.8); NEUTROPHILS % (AUTO) 94 % (42-75); PLATELET COUNT 359 10^3/uL (130-400); RED CELL DISTRIBUTION WIDTH 15.8 % (10.0-14.5); RETICULOCYTE % 10.98 % (0.50-2.40); WHITE BLOOD COUNT 13.8 10^3/uL (4.3-11.0)
[2019-10-21 10:58] LABS: ALANINE AMINOTRANSFERASE 21 U/L (0-55); ALBUMIN 4.2 GM/DL (3.2-4.5); ALKALINE PHOSPHATASE 39 U/L (40-136); BILIRUBIN,TOTAL 1.8 MG/DL (0.1-1.0); BUN/CREATININE RATIO 31; CALCIUM 9.3 MG/DL (8.5-10.1); CARBON DIOXIDE 24 MMOL/L (21-32); CHLORIDE 105 MMOL/L (98-107); CREATININE SERUM 0.81 MG/DL (0.60-1.30); GFR ESTIMATED > 60; GLUCOSE 126 MG/DL (70-105); POTASSIUM 3.9 MMOL/L (3.6-5.0); SODIUM 142 MMOL/L (135-145); TOTAL PROTEIN 6.1 GM/DL (6.4-8.2)
[2019-10-28 09:19] LABS: ABSOLUTE RETIC # 268 10e9/L (24-90); BASOPHILS % (AUTO) 0 % (0-10); EOSINOPHILS % (AUTO) 0 % (0-10); HEMATOCRIT 29 % (35-52); LYMPHOCYTES # (AUTO) 0.5 X 10^3 (1.0-4.0); LYMPHOCYTES % (AUTO) 4 % (12-44); MEAN CORPUSCULAR HEMOGLOBIN 34 PG (25-34); MEAN CORPUSCULAR HGB CONC 34 G/DL (32-36); MEAN CORPUSCULAR VOLUME 100 FL (80-99); MEAN PLATELET VOLUME 9.3 FL (7.4-10.4); MONOCYTES # (AUTO) 0.3 X 10^3 (0.0-1.0); MONOCYTES % (AUTO) 3 % (0-12); NEUTROPHILS # (AUTO) 10.7 X 10^3 (1.8-7.8); NEUTROPHILS % (AUTO) 93 % (42-75); PLATELET COUNT 331 10^3/uL (130-400); RED CELL DISTRIBUTION WIDTH 15.5 % (10.0-14.5); RETICULOCYTE % 9.16 % (0.50-2.40); WHITE BLOOD COUNT 11.5 10^3/uL (4.3-11.0)
[2019-10-28 09:39] LABS: ALANINE AMINOTRANSFERASE 24 U/L (0-55); ALBUMIN 4.2 GM/DL (3.2-4.5); ALKALINE PHOSPHATASE 41 U/L (40-136); BILIRUBIN,TOTAL 1.5 MG/DL (0.1-1.0); BUN/CREATININE RATIO 31; CALCIUM 9.1 MG/DL (8.5-10.1); CARBON DIOXIDE 26 MMOL/L (21-32); CHLORIDE 107 MMOL/L (98-107); CREATININE SERUM 0.81 MG/DL (0.60-1.30); GFR ESTIMATED > 60; GLUCOSE 134 MG/DL (70-105); SODIUM 141 MMOL/L (135-145)
[2019-11-04 10:39] LABS: ABSOLUTE RETIC # 290 10e9/L (24-90); BASOPHILS % (AUTO) 0 % (0-10); EOSINOPHILS # (AUTO) 0.1 10^3/uL (0.0-0.3); EOSINOPHILS % (AUTO) 1 % (0-10); HEMATOCRIT 29 % (35-52); HEMOGLOBIN 9.7 G/DL (11.5-16.0); LYMPHOCYTES # (AUTO) 1.1 X 10^3 (1.0-4.0); LYMPHOCYTES % (AUTO) 8 % (12-44); MEAN CORPUSCULAR HEMOGLOBIN 33 PG (25-34); MEAN CORPUSCULAR HGB CONC 33 G/DL (32-36); MEAN CORPUSCULAR VOLUME 99 FL (80-99); MEAN PLATELET VOLUME 9.2 FL (7.4-10.4); MONOCYTES # (AUTO) 0.7 X 10^3 (0.0-1.0); MONOCYTES % (AUTO) 5 % (0-12); NEUTROPHILS # (AUTO) 11.5 X 10^3 (1.8-7.8); NEUTROPHILS % (AUTO) 86 % (42-75); PLATELET COUNT 338 10^3/uL (130-400); RED CELL DISTRIBUTION WIDTH 15.7 % (10.0-14.5); RETICULOCYTE % 9.78 % (0.50-2.40); WHITE BLOOD COUNT 13.5 10^3/uL (4.3-11.0)
[2019-11-04 11:00] LABS: ALANINE AMINOTRANSFERASE 19 U/L (0-55); ALBUMIN 4.1 GM/DL (3.2-4.5); ALKALINE PHOSPHATASE 41 U/L (40-136); BILIRUBIN,TOTAL 1.2 MG/DL (0.1-1.0); BUN/CREATININE RATIO 27; CARBON DIOXIDE 26 MMOL/L (21-32); CHLORIDE 107 MMOL/L (98-107); CREATININE SERUM 0.81 MG/DL (0.60-1.30); GFR ESTIMATED > 60; GLUCOSE 111 MG/DL (70-105); POTASSIUM 3.6 MMOL/L (3.6-5.0); SODIUM 143 MMOL/L (135-145); TOTAL PROTEIN 5.9 GM/DL (6.4-8.2)
[2019-11-11 13:10] LABS: ABSOLUTE RETIC # 255 10e9/L (24-90); BASOPHILS % (AUTO) 0 % (0-10); EOSINOPHILS % (AUTO) 0 % (0-10); HEMATOCRIT 31 % (35-52); HEMOGLOBIN 10.6 G/DL (11.5-16.0); LYMPHOCYTES # (AUTO) 0.5 X 10^3 (1.0-4.0); LYMPHOCYTES % (AUTO) 4 % (12-44); MEAN CORPUSCULAR HEMOGLOBIN 33 PG (25-34); MEAN CORPUSCULAR HGB CONC 34 G/DL (32-36); MEAN CORPUSCULAR VOLUME 97 FL (80-99); MEAN PLATELET VOLUME 9.3 FL (7.4-10.4); MONOCYTES # (AUTO) 0.3 X 10^3 (0.0-1.0); MONOCYTES % (AUTO) 2 % (0-12); NEUTROPHILS % (AUTO) 93 % (42-75); PLATELET COUNT 363 10^3/uL (130-400); RED CELL DISTRIBUTION WIDTH 15.9 % (10.0-14.5); RETICULOCYTE % 7.93 % (0.50-2.40); WHITE BLOOD COUNT 12.9 10^3/uL (4.3-11.0)
[2019-11-11 13:49] LABS: ALANINE AMINOTRANSFERASE 26 U/L (0-55); ALBUMIN 4.4 GM/DL (3.2-4.5); ALKALINE PHOSPHATASE 42 U/L (40-136); BILIRUBIN,TOTAL 1.4 MG/DL (0.1-1.0); BUN/CREATININE RATIO 29; CALCIUM 9.4 MG/DL (8.5-10.1); CARBON DIOXIDE 25 MMOL/L (21-32); CHLORIDE 104 MMOL/L (98-107); CREATININE SERUM 0.82 MG/DL (0.60-1.30); GFR ESTIMATED > 60; GLUCOSE 110 MG/DL (70-105); POTASSIUM 4.4 MMOL/L (3.6-5.0); SODIUM 139 MMOL/L (135-145); TOTAL PROTEIN 6.3 GM/DL (6.4-8.2)
[2019-11-18 11:02] LABS: BASOPHILS % (AUTO) 0 % (0-10); EOSINOPHILS % (AUTO) 0 % (0-10); HEMATOCRIT 32 % (35-52); HEMOGLOBIN 10.9 G/DL (11.5-16.0); LYMPHOCYTES # (AUTO) 0.8 X 10^3 (1.0-4.0); LYMPHOCYTES % (AUTO) 6 % (12-44); MEAN CORPUSCULAR HEMOGLOBIN 33 PG (25-34); MEAN CORPUSCULAR HGB CONC 34 G/DL (32-36); MEAN CORPUSCULAR VOLUME 96 FL (80-99); MEAN PLATELET VOLUME 9.4 FL (7.4-10.4); MONOCYTES # (AUTO) 0.7 X 10^3 (0.0-1.0); MONOCYTES % (AUTO) 5 % (0-12); NEUTROPHILS # (AUTO) 12.3 X 10^3 (1.8-7.8); NEUTROPHILS % (AUTO) 89 % (42-75); PLATELET COUNT 391 10^3/uL (130-400); RED CELL DISTRIBUTION WIDTH 15.6 % (10.0-14.5); WHITE BLOOD COUNT 13.9 10^3/uL (4.3-11.0)
[2019-11-25 10:01] LABS: BASOPHILS % (AUTO) 0 % (0-10); EOSINOPHILS # (AUTO) 0.1 10^3/uL (0.0-0.3); EOSINOPHILS % (AUTO) 1 % (0-10); HEMATOCRIT 31 % (35-52); HEMOGLOBIN 10.6 G/DL (11.5-16.0); LYMPHOCYTES # (AUTO) 1.4 X 10^3 (1.0-4.0); LYMPHOCYTES % (AUTO) 15 % (12-44); MEAN CORPUSCULAR HEMOGLOBIN 33 PG (25-34); MEAN CORPUSCULAR HGB CONC 35 G/DL (32-36); MEAN CORPUSCULAR VOLUME 96 FL (80-99); MEAN PLATELET VOLUME 9.4 FL (7.4-10.4); MONOCYTES # (AUTO) 0.6 X 10^3 (0.0-1.0); MONOCYTES % (AUTO) 6 % (0-12); NEUTROPHILS # (AUTO) 7.7 X 10^3 (1.8-7.8); NEUTROPHILS % (AUTO) 78 % (42-75); PLATELET COUNT 337 10^3/uL (130-400); RED CELL DISTRIBUTION WIDTH 15.3 % (10.0-14.5); WHITE BLOOD COUNT 9.9 10^3/uL (4.3-11.0)
[~2019-12-02] VITALS: Ht 157.5 cm; Wt 79.4 kg
[~2019-12-02 10:51] MED LIST changes: +ACETAMINOPHEN 325 MG TAB (TYLENOL) CANCER CTR ONE; +ACETAMINOPHEN 325 MG TAB (TYLENOL) CANCER CTR PO PRN; +ALBU18HF2 PO; +AZIT500T9 PO; +BIOT10004 PO; +CELE-63 PO; +CHOL10008 PO; +CRAN500T PO; +CYAN250014 PO; +ESTR42.511 VG; +FLUO20CA46 PO; +FOLI200T11 PO; +Folic Acid PO; +INUL1TAB4 PO; +MAGN400T39 PO; +MOEX7.5T2 PO; +NS IV 1000 ML (CANCER CTR) 1,000 ML ONE; +NS IV 1000 ML (CANCER CTR) IV SCH; +ONDANSETRON MDV (CANCER CENTER 8 MG, DEXAMETHASONE INJ (CANCER CTR) 4 MG in NS (IVPB) C... IV ONE; +PANT40TA3 PO; +PEG15DRO9 OU; +PRD50T PO; +SIMV20TA26 PO; +SPIR100T4 PO; +TURM538C PO; +diphenhydrAMINE 25 MG TAB (BENADRYL) CANCER CENTER PO SCH; +diphenhydrAMINE 50 MG/ML INJ (CANCER CENTER) IV PRN; +diphenhydrAMINE 50 MG/ML INJ (CANCER CENTER) ONE; +riTUXimab 500 MG, riTUXimab FOR IV INJ CONC 200 MG in NS (IVPB) CANCER CENTER ONLY 150 ML IV SCH
[2019-12-02 10:58] LABS: BASOPHILS % (AUTO) 0 % (0-10); EOSINOPHILS # (AUTO) 0.1 10^3/uL (0.0-0.3); EOSINOPHILS % (AUTO) 1 % (0-10); HEMATOCRIT 28 % (35-52); HEMOGLOBIN 9.6 G/DL (11.5-16.0); LYMPHOCYTES % (AUTO) 9 % (12-44); MEAN CORPUSCULAR HEMOGLOBIN 33 PG (25-34); MEAN CORPUSCULAR HGB CONC 34 G/DL (32-36); MEAN CORPUSCULAR VOLUME 96 FL (80-99); MEAN PLATELET VOLUME 9.4 FL (7.4-10.4); MONOCYTES # (AUTO) 0.8 X 10^3 (0.0-1.0); MONOCYTES % (AUTO) 7 % (0-12); NEUTROPHILS # (AUTO) 9.2 X 10^3 (1.8-7.8); NEUTROPHILS % (AUTO) 83 % (42-75); PLATELET COUNT 326 10^3/uL (130-400); RED CELL DISTRIBUTION WIDTH 15.8 % (10.0-14.5); WHITE BLOOD COUNT 11.1 10^3/uL (4.3-11.0)
== END 2019-12-08 | disposition home or self-care (01) ==
LOC: ONC 10:51
PROVIDERS: ATTEND Internal Medicine Hematology & Oncology
DX: D59.1 Other autoimmune hemolytic anemias (principal)
CPT/HCPCS: 80053; 83615; 85025; 85045; 96375; 96413; 96415; G0463; 36415; 82728; 83090; 83921; 85027; 99213; J9312

== ENCOUNTER → 2020-02-09 | Outpatient (CLI) | payer MEDICARE ==
[~2020-02-09] MED LIST changes: -ACETAMINOPHEN 325 MG TAB (TYLENOL) CANCER CTR ONE; -ACETAMINOPHEN 325 MG TAB (TYLENOL) CANCER CTR PO PRN; -NS IV 1000 ML (CANCER CTR) 1,000 ML ONE; -NS IV 1000 ML (CANCER CTR) IV SCH; -ONDANSETRON MDV (CANCER CENTER 8 MG, DEXAMETHASONE INJ (CANCER CTR) 4 MG in NS (IVPB) C... IV ONE; -PANT40TA3 PO; +PANT40TA52 PO; -diphenhydrAMINE 25 MG TAB (BENADRYL) CANCER CENTER PO SCH; -diphenhydrAMINE 50 MG/ML INJ (CANCER CENTER) IV PRN; -diphenhydrAMINE 50 MG/ML INJ (CANCER CENTER) ONE; -riTUXimab 500 MG, riTUXimab FOR IV INJ CONC 200 MG in NS (IVPB) CANCER CENTER ONLY 150 ML IV SCH
[2020-02-09 11:28] LABS: BASOPHILS # (AUTO) 0.1 10^3/uL (0.0-0.1); BASOPHILS % (AUTO) 1 % (0-10); EOSINOPHILS # (AUTO) 0.1 10^3/uL (0.0-0.3); EOSINOPHILS % (AUTO) 1 % (0-10); HEMATOCRIT 28 % (35-52); HEMOGLOBIN 9.6 g/dL (11.5-16.0); LYMPHOCYTES # (AUTO) 0.9 10^3/uL (1.0-4.0); LYMPHOCYTES % (AUTO) 8 % (12-44); MEAN CORPUSCULAR HEMOGLOBIN 31 pg (25-34); MEAN CORPUSCULAR HGB CONC 34 g/dL (32-36); MEAN CORPUSCULAR VOLUME 92 fL (80-99); MEAN PLATELET VOLUME 9.5 fL (9.0-12.2); MONOCYTES # (AUTO) 0.5 10^3/uL (0.0-1.0); MONOCYTES % (AUTO) 5 % (0-12); NEUTROPHILS # (AUTO) 9.7 10^3/uL (1.8-7.8); NEUTROPHILS % (AUTO) 86 % (42-75); PLATELET COUNT 341 10^3/uL (130-400); WHITE BLOOD COUNT 11.3 10^3/uL (4.3-11.0)
[2020-02-09 11:44] LABS: CREATININE SERUM 0.77 MG/DL (0.60-1.30)
[2020-02-09 12:19] LABS: BAND NEUTROPHILS 1 %; LYMPHOCYTES % (MANUAL) 11 %; NEUTROPHILS % (MANUAL) 82 %
[2020-02-09 12:20] LABS: ANISOCYTOSIS SLIGHT; ATYPICAL LYMPHOCYTES 1 %; BASOPHILS % (MANUAL) 0 %; EOSINOPHILS % (MANUAL) 1 %; MONOCYTES % (MANUAL) 4 %; POIKILOCYTOSIS SLIGHT; POLYCHROMASIA SLIGHT; TEAR DROP CELLS SLIGHT
[2020-02-09 12:21] LABS: ERYTHROCYTE SEDIMENTATION RATE 19 MM/HR (0-30)
== END ==
LOC: LAB 11:05
PROVIDERS: ATTEND Internal Medicine Rheumatology
DX: Z01.89 Encounter for other specified special examinations (principal); Z79.52 Long term (current) use of systemic steroids; Z87.39 Personal history of other diseases of the musculoskeletal system and connective tissue
CPT/HCPCS: 36415; 82565; 85007; 85027; 85652; 86141; 86160; 86225

== ENCOUNTER → 2020-03-08 | Outpatient (RCR) | payer MEDICARE ==
[2019-12-09 14:22] LABS: ABSOLUTE RETIC # 310 10e9/L (24-90); BASOPHILS % (AUTO) 0 % (0-10); EOSINOPHILS % (AUTO) 0 % (0-10); HEMATOCRIT 30 % (35-52); HEMOGLOBIN 10.1 G/DL (11.5-16.0); LYMPHOCYTES # (AUTO) 0.6 X 10^3 (1.0-4.0); LYMPHOCYTES % (AUTO) 7 % (12-44); MEAN CORPUSCULAR HEMOGLOBIN 32 PG (25-34); MEAN CORPUSCULAR HGB CONC 33 G/DL (32-36); MEAN CORPUSCULAR VOLUME 96 FL (80-99); MEAN PLATELET VOLUME 9.6 FL (7.4-10.4); MONOCYTES # (AUTO) 0.2 X 10^3 (0.0-1.0); MONOCYTES % (AUTO) 2 % (0-12); NEUTROPHILS # (AUTO) 7.9 X 10^3 (1.8-7.8); NEUTROPHILS % (AUTO) 91 % (42-75); PLATELET COUNT 358 10^3/uL (130-400); RETICULOCYTE % 9.85 % (0.50-2.40); WHITE BLOOD COUNT 8.7 10^3/uL (4.3-11.0)
[2019-12-09 14:36] LABS: ALANINE AMINOTRANSFERASE 18 U/L (0-55); ALBUMIN 4.3 GM/DL (3.2-4.5); ALKALINE PHOSPHATASE 47 U/L (40-136); BILIRUBIN,TOTAL 1.5 MG/DL (0.1-1.0); BUN/CREATININE RATIO 26; CALCIUM 9.3 MG/DL (8.5-10.1); CARBON DIOXIDE 25 MMOL/L (21-32); CHLORIDE 108 MMOL/L (98-107); CREATININE SERUM 0.89 MG/DL (0.60-1.30); GFR ESTIMATED > 60; GLUCOSE 136 MG/DL (70-105); POTASSIUM 4.4 MMOL/L (3.6-5.0); SODIUM 144 MMOL/L (135-145); TOTAL PROTEIN 6.4 GM/DL (6.4-8.2)
[2019-12-16 10:54] LABS: BASOPHILS % (AUTO) 0 % (0-10); EOSINOPHILS # (AUTO) 0.1 10^3/uL (0.0-0.3); EOSINOPHILS % (AUTO) 1 % (0-10); HEMATOCRIT 30 % (35-52); HEMOGLOBIN 10.1 G/DL (11.5-16.0); LYMPHOCYTES # (AUTO) 1.2 X 10^3 (1.0-4.0); LYMPHOCYTES % (AUTO) 10 % (12-44); MEAN CORPUSCULAR HEMOGLOBIN 32 PG (25-34); MEAN CORPUSCULAR HGB CONC 34 G/DL (32-36); MEAN CORPUSCULAR VOLUME 94 FL (80-99); MEAN PLATELET VOLUME 9.6 FL (7.4-10.4); MONOCYTES # (AUTO) 0.7 X 10^3 (0.0-1.0); MONOCYTES % (AUTO) 6 % (0-12); NEUTROPHILS # (AUTO) 9.9 X 10^3 (1.8-7.8); NEUTROPHILS % (AUTO) 83 % (42-75); PLATELET COUNT 386 10^3/uL (130-400); WHITE BLOOD COUNT 11.9 10^3/uL (4.3-11.0)
[2019-12-23 09:07] LABS: BASOPHILS % (AUTO) 0 % (0-10); EOSINOPHILS # (AUTO) 0.2 10^3/uL (0.0-0.3); EOSINOPHILS % (AUTO) 2 % (0-10); HEMATOCRIT 28 % (35-52); HEMOGLOBIN 9.6 G/DL (11.5-16.0); LYMPHOCYTES # (AUTO) 1.7 X 10^3 (1.0-4.0); LYMPHOCYTES % (AUTO) 19 % (12-44); MEAN CORPUSCULAR HEMOGLOBIN 32 PG (25-34); MEAN CORPUSCULAR HGB CONC 34 G/DL (32-36); MEAN CORPUSCULAR VOLUME 93 FL (80-99); MEAN PLATELET VOLUME 9.5 FL (7.4-10.4); MONOCYTES # (AUTO) 0.7 X 10^3 (0.0-1.0); MONOCYTES % (AUTO) 8 % (0-12); NEUTROPHILS # (AUTO) 6.5 X 10^3 (1.8-7.8); NEUTROPHILS % (AUTO) 72 % (42-75); PLATELET COUNT 337 10^3/uL (130-400); WHITE BLOOD COUNT 9.1 10^3/uL (4.3-11.0)
[2019-12-23 09:21] LABS: BUN/CREATININE RATIO 26; CALCIUM 9.3 MG/DL (8.5-10.1); CARBON DIOXIDE 26 MMOL/L (21-32); CHLORIDE 105 MMOL/L (98-107); CREATININE SERUM 0.76 MG/DL (0.60-1.30); GFR ESTIMATED > 60; GLUCOSE 89 MG/DL (70-105); SODIUM 140 MMOL/L (135-145)
[2019-12-30 11:33] LABS: BASOPHILS % (AUTO) 1 % (0-10); EOSINOPHILS # (AUTO) 0.2 10^3/uL (0.0-0.3); EOSINOPHILS % (AUTO) 4 % (0-10); HEMATOCRIT 29 % (35-52); HEMOGLOBIN 9.6 G/DL (11.5-16.0); LYMPHOCYTES # (AUTO) 1.1 X 10^3 (1.0-4.0); LYMPHOCYTES % (AUTO) 20 % (12-44); MEAN CORPUSCULAR HEMOGLOBIN 31 PG (25-34); MEAN CORPUSCULAR HGB CONC 33 G/DL (32-36); MEAN CORPUSCULAR VOLUME 93 FL (80-99); MEAN PLATELET VOLUME 9.5 FL (7.4-10.4); MONOCYTES # (AUTO) 0.5 X 10^3 (0.0-1.0); MONOCYTES % (AUTO) 9 % (0-12); NEUTROPHILS # (AUTO) 3.6 X 10^3 (1.8-7.8); NEUTROPHILS % (AUTO) 67 % (42-75); PLATELET COUNT 334 10^3/uL (130-400); WHITE BLOOD COUNT 5.4 10^3/uL (4.3-11.0)
[2020-01-06 10:30] LABS: BASOPHILS # (AUTO) 0.1 10^3/uL (0.0-0.1); BASOPHILS % (AUTO) 1 % (0-10); EOSINOPHILS # (AUTO) 0.3 10^3/uL (0.0-0.3); EOSINOPHILS % (AUTO) 4 % (0-10); HEMATOCRIT 28 % (35-52); HEMOGLOBIN 9.4 G/DL (11.5-16.0); LYMPHOCYTES # (AUTO) 1.5 X 10^3 (1.0-4.0); LYMPHOCYTES % (AUTO) 21 % (12-44); MEAN CORPUSCULAR HEMOGLOBIN 31 PG (25-34); MEAN CORPUSCULAR HGB CONC 33 G/DL (32-36); MEAN CORPUSCULAR VOLUME 92 FL (80-99); MEAN PLATELET VOLUME 9.2 FL (7.4-10.4); MONOCYTES # (AUTO) 0.8 X 10^3 (0.0-1.0); MONOCYTES % (AUTO) 11 % (0-12); NEUTROPHILS # (AUTO) 4.6 X 10^3 (1.8-7.8); NEUTROPHILS % (AUTO) 64 % (42-75); PLATELET COUNT 400 10^3/uL (130-400); WHITE BLOOD COUNT 7.2 10^3/uL (4.3-11.0)
[2020-01-13 15:14] LABS: ABSOLUTE RETIC # 284 10e9/L (24-90); BASOPHILS # (AUTO) 0.1 10^3/uL (0.0-0.1); BASOPHILS % (AUTO) 1 % (0-10); EOSINOPHILS # (AUTO) 0.2 10^3/uL (0.0-0.3); EOSINOPHILS % (AUTO) 3 % (0-10); HEMATOCRIT 28 % (35-52); HEMOGLOBIN 9.2 G/DL (11.5-16.0); LYMPHOCYTES # (AUTO) 1.3 X 10^3 (1.0-4.0); LYMPHOCYTES % (AUTO) 18 % (12-44); MEAN CORPUSCULAR HEMOGLOBIN 31 PG (25-34); MEAN CORPUSCULAR HGB CONC 33 G/DL (32-36); MEAN CORPUSCULAR VOLUME 92 FL (80-99); MEAN PLATELET VOLUME 9.5 FL (7.4-10.4); MONOCYTES # (AUTO) 0.8 X 10^3 (0.0-1.0); MONOCYTES % (AUTO) 10 % (0-12); NEUTROPHILS # (AUTO) 4.9 X 10^3 (1.8-7.8); NEUTROPHILS % (AUTO) 68 % (42-75); PLATELET COUNT 387 10^3/uL (130-400); RETICULOCYTE % 9.42 % (0.50-2.40); WHITE BLOOD COUNT 7.3 10^3/uL (4.3-11.0)
[2020-01-13 15:38] LABS: ALANINE AMINOTRANSFERASE 18 U/L (0-55); ALBUMIN 4.4 GM/DL (3.2-4.5); ALKALINE PHOSPHATASE 59 U/L (40-136); BILIRUBIN,TOTAL 1.3 MG/DL (0.1-1.0); BUN/CREATININE RATIO 29; CALCIUM 9.6 MG/DL (8.5-10.1); CARBON DIOXIDE 28 MMOL/L (21-32); CHLORIDE 106 MMOL/L (98-107); CREATININE SERUM 0.79 MG/DL (0.60-1.30); GFR ESTIMATED > 60; GLUCOSE 108 MG/DL (70-105); POTASSIUM 3.9 MMOL/L (3.6-5.0); SODIUM 140 MMOL/L (135-145); TOTAL PROTEIN 6.5 GM/DL (6.4-8.2)
[2020-02-09 11:25] LABS: ABSOLUTE RETIC # 290 10e9/uL (24-90); BASOPHILS # (AUTO) 0.1 10^3/uL (0.0-0.1); BASOPHILS % (AUTO) 1 % (0-10); EOSINOPHILS # (AUTO) 0.1 10^3/uL (0.0-0.3); EOSINOPHILS % (AUTO) 1 % (0-10); HEMATOCRIT 28 % (35-52); HEMOGLOBIN 9.6 g/dL (11.5-16.0); LYMPHOCYTES # (AUTO) 0.9 10^3/uL (1.0-4.0); LYMPHOCYTES % (AUTO) 8 % (12-44); MEAN CORPUSCULAR HEMOGLOBIN 31 pg (25-34); MEAN CORPUSCULAR HGB CONC 34 g/dL (32-36); MEAN CORPUSCULAR VOLUME 92 fL (80-99); MEAN PLATELET VOLUME 9.5 fL (9.0-12.2); MONOCYTES # (AUTO) 0.5 10^3/uL (0.0-1.0); MONOCYTES % (AUTO) 5 % (0-12); NEUTROPHILS # (AUTO) 9.7 10^3/uL (1.8-7.8); NEUTROPHILS % (AUTO) 86 % (42-75); PLATELET COUNT 341 10^3/uL (130-400); RETICULOCYTE % 9.37 % (0.50-2.40); WHITE BLOOD COUNT 11.3 10^3/uL (4.3-11.0)
[2020-03-08 10:20] LABS: BASOPHILS % (AUTO) 1 % (0-10); EOSINOPHILS # (AUTO) 0.2 10^3/uL (0.0-0.3); EOSINOPHILS % (AUTO) 3 % (0-10); HEMATOCRIT 31 % (35-52); HEMOGLOBIN 10.4 g/dL (11.5-16.0); LYMPHOCYTES # (AUTO) 1.3 10^3/uL (1.0-4.0); LYMPHOCYTES % (AUTO) 16 % (12-44); MEAN CORPUSCULAR HEMOGLOBIN 32 pg (25-34); MEAN CORPUSCULAR HGB CONC 34 g/dL (32-36); MEAN CORPUSCULAR VOLUME 93 fL (80-99); MEAN PLATELET VOLUME 9.8 fL (9.0-12.2); MONOCYTES # (AUTO) 0.6 10^3/uL (0.0-1.0); MONOCYTES % (AUTO) 7 % (0-12); NEUTROPHILS # (AUTO) 5.7 10^3/uL (1.8-7.8); NEUTROPHILS % (AUTO) 72 % (42-75); PLATELET COUNT 340 10^3/uL (130-400); WHITE BLOOD COUNT 7.8 10^3/uL (4.3-11.0)
[2020-03-08 10:46] LABS: ALANINE AMINOTRANSFERASE 14 U/L (0-55); ALBUMIN 4.4 GM/DL (3.2-4.5); ALKALINE PHOSPHATASE 54 U/L (40-136); BILIRUBIN,TOTAL 1.6 MG/DL (0.1-1.0); BUN/CREATININE RATIO 23; CALCIUM 9.5 MG/DL (8.5-10.1); CARBON DIOXIDE 27 MMOL/L (21-32); CHLORIDE 105 MMOL/L (98-107); GFR ESTIMATED > 60; GLUCOSE 91 MG/DL (70-105); POTASSIUM 3.9 MMOL/L (3.6-5.0); SODIUM 142 MMOL/L (135-145); TOTAL PROTEIN 6.5 GM/DL (6.4-8.2)
[2020-03-08 10:50] LABS: ABSOLUTE RETIC # 341 10e9/uL (24-90)
== END | disposition home or self-care (01) ==
LOC: ONC 12-09 14:11
PROVIDERS: ATTEND Internal Medicine Hematology & Oncology
DX: D59.10 Autoimmune hemolytic anemia, unspecified (principal)
CPT/HCPCS: 80053; 83615; 85025; 85045; G0463; 80048; 82728; 99213

== ENCOUNTER 2020-05-10 12:59 | Outpatient (RCR) | payer MEDICARE ==
[2020-05-08 10:35] LABS: ABSOLUTE RETIC # 516 10e9/uL (24-90); BASOPHILS # (AUTO) 0.1 10^3/uL (0.0-0.1); BASOPHILS % (AUTO) 1 % (0-10); EOSINOPHILS # (AUTO) 0.2 10^3/uL (0.0-0.3); EOSINOPHILS % (AUTO) 2 % (0-10); HEMATOCRIT 27 % (35-52); HEMOGLOBIN 9.3 g/dL (11.5-16.0); LYMPHOCYTES # (AUTO) 1.7 10^3/uL (1.0-4.0); LYMPHOCYTES % (AUTO) 16 % (12-44); MEAN CORPUSCULAR HEMOGLOBIN 34 pg (25-34); MEAN CORPUSCULAR HGB CONC 34 g/dL (32-36); MEAN CORPUSCULAR VOLUME 99 fL (80-99); MEAN PLATELET VOLUME 9.8 fL (9.0-12.2); MONOCYTES # (AUTO) 0.6 10^3/uL (0.0-1.0); MONOCYTES % (AUTO) 6 % (0-12); NEUTROPHILS # (AUTO) 7.7 10^3/uL (1.8-7.8); NEUTROPHILS % (AUTO) 74 % (42-75); PLATELET COUNT 389 10^3/uL (130-400); RETICULOCYTE % 18.56 % (0.50-2.40); WHITE BLOOD COUNT 10.4 10^3/uL (4.3-11.0)
[2020-05-08 10:54] LABS: ALANINE AMINOTRANSFERASE 15 U/L (0-55); ALBUMIN 4.5 GM/DL (3.2-4.5); ALKALINE PHOSPHATASE 66 U/L (40-136); BILIRUBIN,TOTAL 1.7 MG/DL (0.1-1.0); BUN/CREATININE RATIO 25; CALCIUM 9.4 MG/DL (8.5-10.1); CARBON DIOXIDE 29 MMOL/L (21-32); CHLORIDE 106 MMOL/L (98-107); CREATININE SERUM 0.75 MG/DL (0.60-1.30); GFR ESTIMATED > 60; GLUCOSE 104 MG/DL (70-105); SODIUM 141 MMOL/L (135-145); TOTAL PROTEIN 6.8 GM/DL (6.4-8.2)
== END 2020-05-15 15:34 | disposition home or self-care (01) ==
LOC: ONC 12:59
PROVIDERS: ATTEND Internal Medicine Hematology & Oncology
DX: D59.19 Other autoimmune hemolytic anemia (principal)
CPT/HCPCS: 80053; 82728; 85025; 85045; 99213

== ENCOUNTER 2020-08-09 09:42 | Outpatient (RCR) | payer MEDICARE ==
[2020-05-17 10:08] LABS: ABSOLUTE RETIC # 481 10e9/uL (24-90); BASOPHILS # (AUTO) 0.1 10^3/uL (0.0-0.1); BASOPHILS % (AUTO) 0 % (0-10); EOSINOPHILS # (AUTO) 0.2 10^3/uL (0.0-0.3); EOSINOPHILS % (AUTO) 2 % (0-10); HEMATOCRIT 24 % (35-52); LYMPHOCYTES # (AUTO) 1.1 10^3/uL (1.0-4.0); LYMPHOCYTES % (AUTO) 9 % (12-44); MEAN CORPUSCULAR HEMOGLOBIN 33 pg (25-34); MEAN CORPUSCULAR HGB CONC 33 g/dL (32-36); MEAN CORPUSCULAR VOLUME 100 fL (80-99); MEAN PLATELET VOLUME 9.2 fL (9.0-12.2); MONOCYTES # (AUTO) 0.7 10^3/uL (0.0-1.0); MONOCYTES % (AUTO) 6 % (0-12); NEUTROPHILS # (AUTO) 9.8 10^3/uL (1.8-7.8); NEUTROPHILS % (AUTO) 82 % (42-75); PLATELET COUNT 361 10^3/uL (130-400); RETICULOCYTE % 19.89 % (0.50-2.40)
[2020-05-17 10:26] LABS: ALANINE AMINOTRANSFERASE 19 U/L (0-55); ALBUMIN 4.2 GM/DL (3.2-4.5); ALKALINE PHOSPHATASE 52 U/L (40-136); BILIRUBIN,TOTAL 1.4 MG/DL (0.1-1.0); BUN/CREATININE RATIO 29; CALCIUM 9.3 MG/DL (8.5-10.1); CARBON DIOXIDE 27 MMOL/L (21-32); CHLORIDE 106 MMOL/L (98-107); CREATININE SERUM 0.76 MG/DL (0.60-1.30); GFR ESTIMATED > 60; GLUCOSE 100 MG/DL (70-105); POTASSIUM 4.1 MMOL/L (3.6-5.0); SODIUM 142 MMOL/L (135-145); TOTAL PROTEIN 6.5 GM/DL (6.4-8.2)
[2020-05-24 11:26] LABS: ABSOLUTE RETIC # 584 10e9/uL (24-90); BASOPHILS % (AUTO) 0 % (0-10); EOSINOPHILS % (AUTO) 0 % (0-10); HEMATOCRIT 28 % (35-52); HEMOGLOBIN 9.2 g/dL (11.5-16.0); LYMPHOCYTES # (AUTO) 0.6 10^3/uL (1.0-4.0); LYMPHOCYTES % (AUTO) 4 % (12-44); MEAN CORPUSCULAR HEMOGLOBIN 33 pg (25-34); MEAN CORPUSCULAR HGB CONC 33 g/dL (32-36); MEAN CORPUSCULAR VOLUME 101 fL (80-99); MEAN PLATELET VOLUME 9.7 fL (9.0-12.2); MONOCYTES # (AUTO) 0.3 10^3/uL (0.0-1.0); MONOCYTES % (AUTO) 2 % (0-12); NEUTROPHILS # (AUTO) 12.5 10^3/uL (1.8-7.8); NEUTROPHILS % (AUTO) 92 % (42-75); PLATELET COUNT 444 10^3/uL (130-400); RETICULOCYTE % 21.16 % (0.50-2.40); WHITE BLOOD COUNT 13.7 10^3/uL (4.3-11.0)
[2020-05-31 10:37] LABS: ABSOLUTE RETIC # 435 10e9/uL (24-90); BASOPHILS % (AUTO) 0 % (0-10); EOSINOPHILS % (AUTO) 0 % (0-10); HEMATOCRIT 31 % (35-52); HEMOGLOBIN 10.4 g/dL (11.5-16.0); LYMPHOCYTES # (AUTO) 0.4 10^3/uL (1.0-4.0); LYMPHOCYTES % (AUTO) 3 % (12-44); MEAN CORPUSCULAR HEMOGLOBIN 34 pg (25-34); MEAN CORPUSCULAR HGB CONC 34 g/dL (32-36); MEAN CORPUSCULAR VOLUME 101 fL (80-99); MEAN PLATELET VOLUME 9.8 fL (9.0-12.2); MONOCYTES # (AUTO) 0.2 10^3/uL (0.0-1.0); MONOCYTES % (AUTO) 1 % (0-12); NEUTROPHILS # (AUTO) 15.2 10^3/uL (1.8-7.8); NEUTROPHILS % (AUTO) 95 % (42-75); PLATELET COUNT 452 10^3/uL (130-400); RETICULOCYTE % 14.25 % (0.50-2.40)
[2020-06-07 11:10] LABS: ABSOLUTE RETIC # 382 10e9/uL (24-90); BASOPHILS % (AUTO) 0 % (0-10); EOSINOPHILS % (AUTO) 0 % (0-10); HEMATOCRIT 31 % (35-52); HEMOGLOBIN 10.3 g/dL (11.5-16.0); LYMPHOCYTES # (AUTO) 0.4 10^3/uL (1.0-4.0); LYMPHOCYTES % (AUTO) 3 % (12-44); MEAN CORPUSCULAR HEMOGLOBIN 34 pg (25-34); MEAN CORPUSCULAR HGB CONC 34 g/dL (32-36); MEAN CORPUSCULAR VOLUME 100 fL (80-99); MEAN PLATELET VOLUME 9.8 fL (9.0-12.2); MONOCYTES # (AUTO) 0.1 10^3/uL (0.0-1.0); MONOCYTES % (AUTO) 1 % (0-12); NEUTROPHILS # (AUTO) 11.9 10^3/uL (1.8-7.8); NEUTROPHILS % (AUTO) 95 % (42-75); PLATELET COUNT 340 10^3/uL (130-400); RETICULOCYTE % 12.55 % (0.50-2.40); WHITE BLOOD COUNT 12.6 10^3/uL (4.3-11.0)
[2020-06-14 10:57] LABS: ABSOLUTE RETIC # 391 10e9/uL (24-90); BASOPHILS % (AUTO) 0 % (0-10); EOSINOPHILS % (AUTO) 0 % (0-10); HEMATOCRIT 32 % (35-52); LYMPHOCYTES # (AUTO) 0.6 10^3/uL (1.0-4.0); LYMPHOCYTES % (AUTO) 4 % (12-44); MEAN CORPUSCULAR HEMOGLOBIN 34 pg (25-34); MEAN CORPUSCULAR HGB CONC 35 g/dL (32-36); MEAN CORPUSCULAR VOLUME 99 fL (80-99); MEAN PLATELET VOLUME 9.6 fL (9.0-12.2); MONOCYTES # (AUTO) 0.2 10^3/uL (0.0-1.0); MONOCYTES % (AUTO) 2 % (0-12); NEUTROPHILS # (AUTO) 12.9 10^3/uL (1.8-7.8); NEUTROPHILS % (AUTO) 92 % (42-75); PLATELET COUNT 328 10^3/uL (130-400); RETICULOCYTE % 12.21 % (0.50-2.40)
[2020-06-21 10:49] LABS: ABSOLUTE RETIC # 476 10e9/uL (24-90); BASOPHILS % (AUTO) 0 % (0-10); EOSINOPHILS % (AUTO) 0 % (0-10); HEMATOCRIT 32 % (35-52); HEMOGLOBIN 11.1 g/dL (11.5-16.0); LYMPHOCYTES # (AUTO) 0.6 10^3/uL (1.0-4.0); LYMPHOCYTES % (AUTO) 4 % (12-44); MEAN CORPUSCULAR HEMOGLOBIN 35 pg (25-34); MEAN CORPUSCULAR HGB CONC 35 g/dL (32-36); MEAN CORPUSCULAR VOLUME 99 fL (80-99); MEAN PLATELET VOLUME 9.5 fL (9.0-12.2); MONOCYTES # (AUTO) 0.2 10^3/uL (0.0-1.0); MONOCYTES % (AUTO) 1 % (0-12); NEUTROPHILS # (AUTO) 13.1 10^3/uL (1.8-7.8); NEUTROPHILS % (AUTO) 92 % (42-75); PLATELET COUNT 352 10^3/uL (130-400); RETICULOCYTE % 14.88 % (0.50-2.40); WHITE BLOOD COUNT 14.3 10^3/uL (4.3-11.0)
[2020-06-29 11:00] LABS: ABSOLUTE RETIC # 435 10e9/uL (24-90); BASOPHILS % (AUTO) 0 % (0-10); EOSINOPHILS % (AUTO) 0 % (0-10); HEMATOCRIT 31 % (35-52); HEMOGLOBIN 10.5 g/dL (11.5-16.0); LYMPHOCYTES # (AUTO) 0.6 10^3/uL (1.0-4.0); LYMPHOCYTES % (AUTO) 5 % (12-44); MEAN CORPUSCULAR HEMOGLOBIN 34 pg (25-34); MEAN CORPUSCULAR HGB CONC 34 g/dL (32-36); MEAN CORPUSCULAR VOLUME 101 fL (80-99); MEAN PLATELET VOLUME 9.5 fL (9.0-12.2); MONOCYTES # (AUTO) 0.2 10^3/uL (0.0-1.0); MONOCYTES % (AUTO) 1 % (0-12); NEUTROPHILS # (AUTO) 11.5 10^3/uL (1.8-7.8); NEUTROPHILS % (AUTO) 92 % (42-75); PLATELET COUNT 338 10^3/uL (130-400); RETICULOCYTE % 14.26 % (0.50-2.40); WHITE BLOOD COUNT 12.5 10^3/uL (4.3-11.0)
[2020-07-05 10:10] LABS: ABSOLUTE RETIC # 420 10e9/uL (24-90); BASOPHILS # (AUTO) 0.1 10^3/uL (0.0-0.1); BASOPHILS % (AUTO) 1 % (0-10); EOSINOPHILS # (AUTO) 0.1 10^3/uL (0.0-0.3); EOSINOPHILS % (AUTO) 1 % (0-10); HEMATOCRIT 30 % (35-52); HEMOGLOBIN 10.2 g/dL (11.5-16.0); LYMPHOCYTES # (AUTO) 0.8 10^3/uL (1.0-4.0); LYMPHOCYTES % (AUTO) 6 % (12-44); MEAN CORPUSCULAR HEMOGLOBIN 35 pg (25-34); MEAN CORPUSCULAR HGB CONC 35 g/dL (32-36); MEAN CORPUSCULAR VOLUME 100 fL (80-99); MEAN PLATELET VOLUME 9.6 fL (9.0-12.2); MONOCYTES # (AUTO) 0.5 10^3/uL (0.0-1.0); MONOCYTES % (AUTO) 4 % (0-12); NEUTROPHILS # (AUTO) 10.8 10^3/uL (1.8-7.8); NEUTROPHILS % (AUTO) 86 % (42-75); PLATELET COUNT 340 10^3/uL (130-400); RETICULOCYTE % 14.25 % (0.50-2.40); WHITE BLOOD COUNT 12.6 10^3/uL (4.3-11.0)
[2020-07-12 11:01] LABS: ABSOLUTE RETIC # 444 10e9/uL (24-90); BASOPHILS # (AUTO) 0.1 10^3/uL (0.0-0.1); BASOPHILS % (AUTO) 0 % (0-10); EOSINOPHILS % (AUTO) 0 % (0-10); HEMATOCRIT 31 % (35-52); HEMOGLOBIN 10.6 g/dL (11.5-16.0); LYMPHOCYTES # (AUTO) 0.7 10^3/uL (1.0-4.0); LYMPHOCYTES % (AUTO) 6 % (12-44); MEAN CORPUSCULAR HEMOGLOBIN 34 pg (25-34); MEAN CORPUSCULAR HGB CONC 34 g/dL (32-36); MEAN CORPUSCULAR VOLUME 101 fL (80-99); MEAN PLATELET VOLUME 9.6 fL (9.0-12.2); MONOCYTES # (AUTO) 0.4 10^3/uL (0.0-1.0); MONOCYTES % (AUTO) 3 % (0-12); NEUTROPHILS # (AUTO) 10.4 10^3/uL (1.8-7.8); NEUTROPHILS % (AUTO) 88 % (42-75); PLATELET COUNT 354 10^3/uL (130-400); RETICULOCYTE % 14.41 % (0.50-2.40); WHITE BLOOD COUNT 11.7 10^3/uL (4.3-11.0)
[2020-07-19 10:15] LABS: ABSOLUTE RETIC # 434 10e9/uL (24-90); BASOPHILS # (AUTO) 0.1 10^3/uL (0.0-0.1); BASOPHILS % (AUTO) 1 % (0-10); EOSINOPHILS # (AUTO) 0.1 10^3/uL (0.0-0.3); EOSINOPHILS % (AUTO) 1 % (0-10); HEMATOCRIT 30 % (35-52); HEMOGLOBIN 10.1 g/dL (11.5-16.0); LYMPHOCYTES # (AUTO) 1.1 10^3/uL (1.0-4.0); LYMPHOCYTES % (AUTO) 7 % (12-44); MEAN CORPUSCULAR HEMOGLOBIN 34 pg (25-34); MEAN CORPUSCULAR HGB CONC 34 g/dL (32-36); MEAN CORPUSCULAR VOLUME 100 fL (80-99); MEAN PLATELET VOLUME 9.4 fL (9.0-12.2); MONOCYTES # (AUTO) 0.6 10^3/uL (0.0-1.0); MONOCYTES % (AUTO) 4 % (0-12); NEUTROPHILS # (AUTO) 12.7 10^3/uL (1.8-7.8); NEUTROPHILS % (AUTO) 86 % (42-75); PLATELET COUNT 336 10^3/uL (130-400); RETICULOCYTE % 14.65 % (0.50-2.40); WHITE BLOOD COUNT 14.8 10^3/uL (4.3-11.0)
[2020-07-26 10:31] LABS: ABSOLUTE RETIC # 470 10e9/uL (24-90); BASOPHILS # (AUTO) 0.1 10^3/uL (0.0-0.1); BASOPHILS % (AUTO) 1 % (0-10); EOSINOPHILS # (AUTO) 0.2 10^3/uL (0.0-0.3); EOSINOPHILS % (AUTO) 1 % (0-10); HEMATOCRIT 28 % (35-52); HEMOGLOBIN 9.6 g/dL (11.5-16.0); LYMPHOCYTES # (AUTO) 1.6 10^3/uL (1.0-4.0); LYMPHOCYTES % (AUTO) 13 % (12-44); MEAN CORPUSCULAR HEMOGLOBIN 33 pg (25-34); MEAN CORPUSCULAR HGB CONC 34 g/dL (32-36); MEAN CORPUSCULAR VOLUME 98 fL (80-99); MEAN PLATELET VOLUME 9.4 fL (9.0-12.2); MONOCYTES # (AUTO) 0.9 10^3/uL (0.0-1.0); MONOCYTES % (AUTO) 7 % (0-12); NEUTROPHILS # (AUTO) 9.5 10^3/uL (1.8-7.8); NEUTROPHILS % (AUTO) 76 % (42-75); PLATELET COUNT 374 10^3/uL (130-400); RETICULOCYTE % 16.25 % (0.50-2.40); WHITE BLOOD COUNT 12.5 10^3/uL (4.3-11.0)
[2020-08-02 10:23] LABS: BASOPHILS # (AUTO) 0.1 10^3/uL (0.0-0.1); BASOPHILS % (AUTO) 1 % (0-10); EOSINOPHILS # (AUTO) 0.2 10^3/uL (0.0-0.3); EOSINOPHILS % (AUTO) 2 % (0-10); HEMATOCRIT 30 % (35-52); HEMOGLOBIN 10.1 g/dL (11.5-16.0); LYMPHOCYTES % (AUTO) 12 % (12-44); MEAN CORPUSCULAR HEMOGLOBIN 33 pg (25-34); MEAN CORPUSCULAR HGB CONC 33 g/dL (32-36); MEAN CORPUSCULAR VOLUME 98 fL (80-99); MEAN PLATELET VOLUME 9.5 fL (9.0-12.2); MONOCYTES # (AUTO) 0.5 10^3/uL (0.0-1.0); MONOCYTES % (AUTO) 6 % (0-12); NEUTROPHILS # (AUTO) 6.8 10^3/uL (1.8-7.8); NEUTROPHILS % (AUTO) 79 % (42-75); PLATELET COUNT 375 10^3/uL (130-400); WHITE BLOOD COUNT 8.6 10^3/uL (4.3-11.0)
[2020-08-09 09:53] LABS: BASOPHILS # (AUTO) 0.1 10^3/uL (0.0-0.1); BASOPHILS % (AUTO) 1 % (0-10); EOSINOPHILS # (AUTO) 0.2 10^3/uL (0.0-0.3); EOSINOPHILS % (AUTO) 2 % (0-10); HEMATOCRIT 29 % (35-52); HEMOGLOBIN 9.7 g/dL (11.5-16.0); LYMPHOCYTES # (AUTO) 1.3 10^3/uL (1.0-4.0); LYMPHOCYTES % (AUTO) 14 % (12-44); MEAN CORPUSCULAR HEMOGLOBIN 32 pg (25-34); MEAN CORPUSCULAR HGB CONC 33 g/dL (32-36); MEAN CORPUSCULAR VOLUME 98 fL (80-99); MEAN PLATELET VOLUME 9.7 fL (9.0-12.2); MONOCYTES # (AUTO) 0.7 10^3/uL (0.0-1.0); MONOCYTES % (AUTO) 7 % (0-12); NEUTROPHILS % (AUTO) 75 % (42-75); PLATELET COUNT 395 10^3/uL (130-400); WHITE BLOOD COUNT 9.3 10^3/uL (4.3-11.0)
== END 2020-08-15 | disposition home or self-care (01) ==
LOC: ONC 09:42
PROVIDERS: ATTEND Internal Medicine Hematology & Oncology
DX: D59.19 Other autoimmune hemolytic anemia (principal)
CPT/HCPCS: 80053; 85025; 85045

== ENCOUNTER 2020-09-19 14:42 | Emergency (ER) | payer MEDICARE ==
[~2020-09-19] VITALS: Ht 157 cm; Wt 72.0 kg
[2020-09-19 15:16] VITALS: BP 161/63
--- NOTE | 2020-09-19 15:38 | ED Back Pain ---
General Chief Complaint: Back Problems Stated Complaint: BACK PAIN/FELL Nursing Triage Note: Pt states she was unloading items out of back of pickup truck and fell, landing flat on back. Pt denies LOC. C/o lower back pain. Nursing Sepsis Screen: No Definite Risk Source of Information: Patient, Family Exam Limitations: No Limitations History of Present Illness Date Seen by Provider: September 19, 2020 Time Seen by Provider: 15:23 Initial Comments Patient is a 70-year-old female who presents to the emergency room after stepping off the back of a pickup truck and falling onto concrete. Patient states she had immediate pain in her low back across both hips. She denies any loss of bowel or bladder function. She denies any distal numbness weakness or tingling. She states that she was able to get up and ambulate afterwards. She is concerned because she is having more right hip than left hip pain. She did not hit her head or have a loss of consciousness. Patient has multiple autoimmune diseases and chronic anemia and is on daily steroids. She was c oncerned about having osteoporosis and a possible fracture. She denies any recent illnesses. No fevers, chills, cough or shortness of breath. All other review of systems reviewed and negative except as stated above. Location: Lumbar Spine, Paraspinous Muscles Timing/Duration: 4-6 Hours Severity: Moderate Pain/Injury Location: Back Radiation: Buttocks Method of Injury: Fall Modifying Factors: Improves With Immobilization; Worse With Movement Associated Symptoms: denies symptoms Allergies and Home Medications Allergies Coded Allergies: NKANo Known Allergies (Verified Allergy, Unknown, 12/27/05) codeine (Verified Allergy, Unknown, 09/09/19) Home Medications Albuterol Sulfate 18 Gm Hfa.aer.ad, 2 PUFF PO Q4H PRN for SHORTNESS OF BREATH, (Reported) Biotin 1,000 Mcg Tab.chew, 1,000 MCG PO DAILY, (Reported) Cholecalciferol (Vitamin D3) 25 Mcg Tab.chew, 25 MCG PO DAILY, (Reported) Cranberry Fruit 500 Mg Tab.chew, 500 MG PO DAILY, (Reported) Cyanocobalamin (Vitamin B-12) 2,500 Mcg Tab.chew, 2,500 MCG PO DAILY, (Reported) Estradiol 42.5 Gm Cream.appl, 1 APPFUL VG WEEKLY, (Reported) Fluoxetine HCl 20 Mg Capsule, 20 MG PO 1800, (Reported) Folic Acid/Multivit-Minerals 200 Mcg Tab.chew, 200 MCG PO DAILY, (Reported) Inulin/Chromium Picolinate 1 Each Tab.chew, 1 EACH PO DAILY, (Reported) Magnesium Oxide 400 Mg Tablet, 400 MG PO DAILY, (Reported) Moexipril HCl 7.5 Mg Tablet, 7.5 MG PO 1800, (Reported) Pantoprazole Sodium 40 Mg Tablet.dr, 40 MG PO BID Prescribed by: PRITESH CHAVES on 09/07/19 1231 Peg 400/Hypromellose/Glycerin 15 Ml Drops, 2 DROPS OU PRN PRN for DRY EYES, (Reported) Prednisone 50 Mg Tab, 100 MG PO DAILY Prescribed by: PRITESH CHAVES on 09/07/19 1232 Simvastatin 20 Mg Tablet, 20 MG PO 1800, (Reported) Spironolactone 100 Mg Tablet, 100 MG PO 1800, (Reported) Turmeric Root Extract 538 Mg Capsule, 538 MG PO DAILY, (Reported) [Folic Acid] 1 MG TAB, 1 MG PO DAILY Prescribed by: PRITESH CHAVES on 09/07/19 1231 Patient Home Medication List Home Medication List Reviewed: Yes Review of Systems Constitutional: see HPI EENTM: no symptoms reported Respiratory: no symptoms reported Cardiovascular: no symptoms reported Gastrointestinal: no symptoms reported Genitourinary: no symptoms reported Musculoskeletal: back pain, joint pain (Right hip) Skin: no symptoms reported Psychiatric/Neurological: No Symptoms Reported All Other Systems Reviewed Negative Unless Noted: Yes Past Ezqtpwy-Vvjfcc-Xznfmv Hx Patient Social History Alcohol Use: Denies Use Smoking Status: Current Everyday Smoker Type Used: Cigarettes Former Smoker, Quit: May 12, 1964 Recent Infectious Disease Expo: No Immunizations Up To Date Date of Pneumonia Vaccine: May 13, 2016 Date of Influenza Vaccine: Feb 22, 2013 Seasonal Allergies Seasonal Allergies: Yes Past Medical History Surgeries: Yes (SEE BELOW) Adenoidectomy, Appendectomy, Gallbladder, Hysterectomy, Oophorectomy, Orthopedic, Tonsillectomy Respiratory: Yes Asthma Cardiac: Yes Chronic Edema/Swelling, Hypertension Neurological: No Reproductive Disorders: 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) 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, 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 Genitourinary: No Gastrointestinal: Yes Polyps Musculoskeletal: Yes (CHRONIC NECK PAIN--S/P CERVICAL SPINE [id number]) Degenerate Disk Disease, Osteoporosis, Arthritis, Rheumatoid Arthritis, Chronic Back Pain, Fractures Endocrine: No HEENT: No Cancer: Yes Cervical Did You Recieve Any Treatments: Yes What Type of Treatment Did You: Surgical Intervention Psychosocial: No Integumentary: No Blood Disorders: No Family Medical History No Pertinent Family Hx PSH: -APPENDECTOMY AGE 15 -TONSILLECTOMY/ADENOIDECTOMY -HYSTERECTOMY 1987 FOR CERVICAL CANCER -BSO 1994--DUE TO MOTHER WITH OVARIAN CANCER -CHOLECYSTECTOMY 2005 -RIGHT WRIST/FOREARM FX/ORIF -CERVICAL SPINE FUSION--[id number]--DR. ANA MARÍA GAINES -EGD/COLONSCOPIES Physical Exam Vital Signs Vital Signs - First Documented 09/19/20 15:16 Temp 36.8 Pulse 62 Resp 18 B/P (MAP) 161/63 (95) Pulse Ox 97 O2 Delivery Room Air Capillary Refill : Less Than 3 Seconds Height, Weight, BMI Height: 5'2" Weight: 170lbs. oz. 77.836130gx; 29.00 BMI Method:Stated General Appearance: No Apparent Distress, WD/WN Cardiovascular: Normal Peripheral Pulses Respiratory: No Accessory Muscle Use, No Respiratory Distress Gastrointestinal: Non Tender, Soft Back: Normal Inspection, No CVA Tenderness, No Vertebral Tenderness; No Vertebral Tenderness; Other (Patient has absolutely no bony tenderness to the midline spine or the posterior superior iliac crests or over the sacrum or anterior iliac spine.) Extremity: Normal Capillary Refill, Normal Inspection, Normal Range of Motion, Non Tender Neurologic/Psychiatric: Alert, Oriented x3, No Motor/Sensory Deficits, Normal Mood/Affect Skin: Normal Color, Warm/Dry Progress/Results/Core Measures Results/Orders Vital Signs/I&O 09/19/20 15:16 Temp 36.8 Pulse 62 Resp 18 B/P (MAP) 161/63 (95) Pulse Ox 97 O2 Delivery Room Air Blood Pressure Mean: 95 Departure Impression Primary Impression: Low back pain Qualified Codes: M54.5 - Low back pain Disposition: 01 HOME, SELF-CARE Condition: Stable Departure-Patient Inst. Decision time for Depature: 15:38 Referrals: MOO SHAY MD (PCP/Family) Primary Care Physician Patient Instructions: Acute Pain, Adult (DC) Add. Discharge Instructions: You can take [id number] Tylenol, extra strength, 2 pills every 4-6 hours as needed for pain. Alternate heat and ice packs to the areas of your low back that are painful. Follow-up with your primary care physician. Come back to the emergency room for reevaluation for any new, emergent or concerning symptoms JAYANT RABAGO MD September 19, 2020 15:38
== END 2020-09-19 15:47 | disposition home or self-care (01) ==
LOC: EDUNIT# 14:42 → ER 14:44
DX: M54.5 Low back pain (principal); I10 Essential (primary) hypertension; J45.909 Unspecified asthma, uncomplicated; F17.210 Nicotine dependence, cigarettes, uncomplicated; Z88.5 Allergy status to narcotic agent; Z79.52 Long term (current) use of systemic steroids
CPT/HCPCS: 99281

== ENCOUNTER → 2020-10-31 | Outpatient (CLI) | payer MEDICARE ==
--- NOTE | 2020-10-31 15:59 | Diagnostic Imaging Report ---
INDICATION: 70-year-old asymptomatic postmenopausal female. COMPARISON: 01/11/2016 FINDINGS: AP Spine L2-L4: [BMD (g/cm2): 1.307] [T-Score: 0.9] [Z-Score: 2.4] [BMD Previous: 1.330] [BMD % Change: -1.7] LT Hip Neck: [BMD (g/cm2): 0.793] [T-Score: -1.8] [Z-Score: -0.2] LT Hip Total: [BMD (g/cm2):0.800] [T-Score:-1.6] [Z-Score: -0.3] [BMD Previous: 0.841] [BMD % Change: -4.9] RT Hip Neck: [BMD (g/cm2):0.719] [T-Score:-2.3] [Z-Score:-0.7] RT Hip Total: [BMD (g/cm2):0.748] [T-score:-2.1] [Z-Score:-0.8] [BMD Previous:0.794] [BMD % Change:-5.8] *Indicates significant change from prior examination based on 95% confidence level. World Health Organization criteria for BMD interpretation classify patients as Normal (T-score at or above -1.0), Osteopenic (T-score between -1.0 and -2.5) or Osteoporotic (T-score at or below -2.5). LIMITATIONS AND MODIFICATION: None. FRACTURE RISK (FRAX SCORE): The ten year probability of (%): Major Osteoporotic Fracture: [21.0] Hip Fracture: [4.4] IMPRESSION: 1. Osteopenia (Low bone mass). 2. No significant change in bone mineral density since prior examination. 3. See below National Osteoporosis Foundation guidelines on when to potentially initiate pharmacologic therapy. Based on the National Osteoporosis Foundation Guidelines, pharmacologic treatment should be initiated in any of the following, unless clinical conditions suggest otherwise: * Any patient with prior fragility fracture of the hip or vertebrae. A spine fracture indicates 5X risk for subsequent spine fracture and 2X risk for subsequent hip fracture. * Osteoporosis (T-score <-2.5). * Postmenopausal women and men age 50 and older with low bone mass/osteopenia (T-score between -1.0 and -2.5) by DXA and 10-year major osteoporotic fracture greater than 20% or a 10-year probability of hip fracture greater than 3%. These fracture risks are supplied above in the FRAX score, if applicable. * Clinician judgement and/or patient preferences may indicate treatment for people with 10-year fracture probabilities above or below these levels. Dictated by: Dictated on workstation # [id number]
== END ==
LOC: RAD 11:16
PROVIDERS: ATTEND Internal Medicine Hematology & Oncology
DX: M85.88 Other specified disorders of bone density and structure, other site (principal); Z78.0 Asymptomatic menopausal state; Z79.52 Long term (current) use of systemic steroids
CPT/HCPCS: 77080

== ENCOUNTER 2020-11-08 10:20 | Outpatient (RCR) | payer MEDICARE ==
[2020-08-16 09:22] LABS: BASOPHILS # (AUTO) 0.1 10^3/uL (0.0-0.1); BASOPHILS % (AUTO) 1 % (0-10); EOSINOPHILS # (AUTO) 0.3 10^3/uL (0.0-0.3); EOSINOPHILS % (AUTO) 2 % (0-10); HEMATOCRIT 27 % (35-52); HEMOGLOBIN 9.3 g/dL (11.5-16.0); LYMPHOCYTES # (AUTO) 1.2 10^3/uL (1.0-4.0); LYMPHOCYTES % (AUTO) 10 % (12-44); MEAN CORPUSCULAR HEMOGLOBIN 33 pg (25-34); MEAN CORPUSCULAR HGB CONC 34 g/dL (32-36); MEAN CORPUSCULAR VOLUME 96 fL (80-99); MEAN PLATELET VOLUME 9.7 fL (9.0-12.2); MONOCYTES # (AUTO) 0.7 10^3/uL (0.0-1.0); MONOCYTES % (AUTO) 6 % (0-12); NEUTROPHILS # (AUTO) 9.2 10^3/uL (1.8-7.8); NEUTROPHILS % (AUTO) 80 % (42-75); PLATELET COUNT 383 10^3/uL (130-400); WHITE BLOOD COUNT 11.6 10^3/uL (4.3-11.0)
[2020-08-23 10:01] LABS: BASOPHILS # (AUTO) 0.1 10^3/uL (0.0-0.1); BASOPHILS % (AUTO) 1 % (0-10); EOSINOPHILS # (AUTO) 0.3 10^3/uL (0.0-0.3); EOSINOPHILS % (AUTO) 3 % (0-10); HEMATOCRIT 30 % (35-52); HEMOGLOBIN 10.1 g/dL (11.5-16.0); LYMPHOCYTES # (AUTO) 1.5 10^3/uL (1.0-4.0); LYMPHOCYTES % (AUTO) 14 % (12-44); MEAN CORPUSCULAR HEMOGLOBIN 32 pg (25-34); MEAN CORPUSCULAR HGB CONC 33 g/dL (32-36); MEAN CORPUSCULAR VOLUME 97 fL (80-99); MEAN PLATELET VOLUME 9.7 fL (9.0-12.2); MONOCYTES # (AUTO) 0.6 10^3/uL (0.0-1.0); MONOCYTES % (AUTO) 6 % (0-12); NEUTROPHILS # (AUTO) 7.9 10^3/uL (1.8-7.8); NEUTROPHILS % (AUTO) 75 % (42-75); PLATELET COUNT 413 10^3/uL (130-400); WHITE BLOOD COUNT 10.5 10^3/uL (4.3-11.0)
[2020-08-30 10:00] LABS: BASOPHILS # (AUTO) 0.1 10^3/uL (0.0-0.1); BASOPHILS % (AUTO) 1 % (0-10); EOSINOPHILS # (AUTO) 0.2 10^3/uL (0.0-0.3); EOSINOPHILS % (AUTO) 2 % (0-10); HEMATOCRIT 29 % (35-52); HEMOGLOBIN 9.7 g/dL (11.5-16.0); LYMPHOCYTES # (AUTO) 0.9 10^3/uL (1.0-4.0); LYMPHOCYTES % (AUTO) 8 % (12-44); MEAN CORPUSCULAR HEMOGLOBIN 32 pg (25-34); MEAN CORPUSCULAR HGB CONC 34 g/dL (32-36); MEAN CORPUSCULAR VOLUME 96 fL (80-99); MEAN PLATELET VOLUME 9.8 fL (9.0-12.2); MONOCYTES # (AUTO) 0.5 10^3/uL (0.0-1.0); MONOCYTES % (AUTO) 5 % (0-12); NEUTROPHILS # (AUTO) 8.6 10^3/uL (1.8-7.8); NEUTROPHILS % (AUTO) 83 % (42-75); PLATELET COUNT 355 10^3/uL (130-400); WHITE BLOOD COUNT 10.3 10^3/uL (4.3-11.0)
[2020-08-30 10:23] LABS: ABSOLUTE RETIC # 380 10e9/uL (24-90); RETICULOCYTE % 12.63 % (0.50-2.40)
[2020-08-30 10:25] LABS: ALANINE AMINOTRANSFERASE 22 U/L (0-55); ALBUMIN 4.2 GM/DL (3.2-4.5); ALKALINE PHOSPHATASE 55 U/L (40-136); BILIRUBIN,TOTAL 1.7 MG/DL (0.1-1.0); BUN/CREATININE RATIO 24; CALCIUM 8.9 MG/DL (8.5-10.1); CARBON DIOXIDE 23 MMOL/L (21-32); CHLORIDE 107 MMOL/L (98-107); GFR ESTIMATED > 60; GLUCOSE 94 MG/DL (70-105); POTASSIUM 3.9 MMOL/L (3.6-5.0); SODIUM 142 MMOL/L (135-145)
[2020-09-06 09:33] LABS: ABSOLUTE RETIC # 383 10e9/uL (24-90); BASOPHILS # (AUTO) 0.1 10^3/uL (0.0-0.1); BASOPHILS % (AUTO) 1 % (0-10); EOSINOPHILS # (AUTO) 0.3 10^3/uL (0.0-0.3); EOSINOPHILS % (AUTO) 3 % (0-10); HEMATOCRIT 28 % (35-52); HEMOGLOBIN 9.2 g/dL (11.5-16.0); LYMPHOCYTES # (AUTO) 1.2 10^3/uL (1.0-4.0); LYMPHOCYTES % (AUTO) 14 % (12-44); MEAN CORPUSCULAR HEMOGLOBIN 32 pg (25-34); MEAN CORPUSCULAR HGB CONC 33 g/dL (32-36); MEAN CORPUSCULAR VOLUME 97 fL (80-99); MEAN PLATELET VOLUME 9.7 fL (9.0-12.2); MONOCYTES # (AUTO) 0.6 10^3/uL (0.0-1.0); MONOCYTES % (AUTO) 8 % (0-12); NEUTROPHILS # (AUTO) 6.2 10^3/uL (1.8-7.8); NEUTROPHILS % (AUTO) 74 % (42-75); PLATELET COUNT 339 10^3/uL (130-400); RETICULOCYTE % 13.35 % (0.50-2.40); WHITE BLOOD COUNT 8.4 10^3/uL (4.3-11.0)
[2020-09-06 09:59] LABS: BUN/CREATININE RATIO 20; CALCIUM 8.9 MG/DL (8.5-10.1); CARBON DIOXIDE 23 MMOL/L (21-32); CHLORIDE 107 MMOL/L (98-107); CREATININE SERUM 0.75 MG/DL (0.60-1.30); GFR ESTIMATED > 60; GLUCOSE 86 MG/DL (70-105); POTASSIUM 3.5 MMOL/L (3.6-5.0); SODIUM 142 MMOL/L (135-145)
[2020-09-13 10:13] LABS: ABSOLUTE RETIC # 441 10e9/uL (24-90); BASOPHILS # (AUTO) 0.1 10^3/uL (0.0-0.1); BASOPHILS % (AUTO) 1 % (0-10); EOSINOPHILS # (AUTO) 0.2 10^3/uL (0.0-0.3); EOSINOPHILS % (AUTO) 3 % (0-10); HEMATOCRIT 27 % (35-52); LYMPHOCYTES # (AUTO) 1.3 10^3/uL (1.0-4.0); LYMPHOCYTES % (AUTO) 15 % (12-44); MEAN CORPUSCULAR HEMOGLOBIN 32 pg (25-34); MEAN CORPUSCULAR HGB CONC 33 g/dL (32-36); MEAN CORPUSCULAR VOLUME 98 fL (80-99); MEAN PLATELET VOLUME 9.6 fL (9.0-12.2); MONOCYTES # (AUTO) 0.7 10^3/uL (0.0-1.0); MONOCYTES % (AUTO) 8 % (0-12); NEUTROPHILS # (AUTO) 6.2 10^3/uL (1.8-7.8); NEUTROPHILS % (AUTO) 72 % (42-75); PLATELET COUNT 334 10^3/uL (130-400); RETICULOCYTE % 15.85 % (0.50-2.40); WHITE BLOOD COUNT 8.6 10^3/uL (4.3-11.0)
[2020-09-13 10:34] LABS: BUN/CREATININE RATIO 20; CARBON DIOXIDE 28 MMOL/L (21-32); CHLORIDE 106 MMOL/L (98-107); CREATININE SERUM 0.76 MG/DL (0.60-1.30); GFR ESTIMATED > 60; GLUCOSE 100 MG/DL (70-105); POTASSIUM 3.9 MMOL/L (3.6-5.0); SODIUM 142 MMOL/L (135-145)
[2020-09-20 09:47] LABS: ABSOLUTE RETIC # 512 10e9/uL (24-90); BASOPHILS # (AUTO) 0.1 10^3/uL (0.0-0.1); BASOPHILS % (AUTO) 1 % (0-10); EOSINOPHILS # (AUTO) 0.2 10^3/uL (0.0-0.3); EOSINOPHILS % (AUTO) 2 % (0-10); HEMATOCRIT 30 % (35-52); HEMOGLOBIN 9.7 g/dL (11.5-16.0); LYMPHOCYTES # (AUTO) 1.6 10^3/uL (1.0-4.0); LYMPHOCYTES % (AUTO) 14 % (12-44); MEAN CORPUSCULAR HEMOGLOBIN 32 pg (25-34); MEAN CORPUSCULAR HGB CONC 33 g/dL (32-36); MEAN CORPUSCULAR VOLUME 100 fL (80-99); MONOCYTES # (AUTO) 0.7 10^3/uL (0.0-1.0); MONOCYTES % (AUTO) 6 % (0-12); NEUTROPHILS # (AUTO) 8.7 10^3/uL (1.8-7.8); NEUTROPHILS % (AUTO) 76 % (42-75); PLATELET COUNT 385 10^3/uL (130-400); RETICULOCYTE % 17.13 % (0.50-2.40); WHITE BLOOD COUNT 11.4 10^3/uL (4.3-11.0)
[2020-09-20 10:04] LABS: BUN/CREATININE RATIO 21; CALCIUM 8.9 MG/DL (8.5-10.1); CARBON DIOXIDE 30 MMOL/L (21-32); CHLORIDE 106 MMOL/L (98-107); CREATININE SERUM 0.76 MG/DL (0.60-1.30); GFR ESTIMATED > 60; GLUCOSE 110 MG/DL (70-105); POTASSIUM 3.5 MMOL/L (3.6-5.0); SODIUM 143 MMOL/L (135-145)
[2020-09-27 10:40] LABS: ABSOLUTE RETIC # 484 10e9/uL (24-90); BASOPHILS # (AUTO) 0.1 10^3/uL (0.0-0.1); BASOPHILS % (AUTO) 1 % (0-10); EOSINOPHILS # (AUTO) 0.1 10^3/uL (0.0-0.3); EOSINOPHILS % (AUTO) 1 % (0-10); HEMATOCRIT 31 % (35-52); HEMOGLOBIN 10.4 g/dL (11.5-16.0); LYMPHOCYTES # (AUTO) 0.8 10^3/uL (1.0-4.0); LYMPHOCYTES % (AUTO) 5 % (12-44); MEAN CORPUSCULAR HEMOGLOBIN 33 pg (25-34); MEAN CORPUSCULAR HGB CONC 34 g/dL (32-36); MEAN CORPUSCULAR VOLUME 96 fL (80-99); MEAN PLATELET VOLUME 9.9 fL (9.0-12.2); MONOCYTES # (AUTO) 0.4 10^3/uL (0.0-1.0); MONOCYTES % (AUTO) 2 % (0-12); NEUTROPHILS # (AUTO) 15.9 10^3/uL (1.8-7.8); NEUTROPHILS % (AUTO) 91 % (42-75); PLATELET COUNT 427 10^3/uL (130-400); RETICULOCYTE % 15.16 % (0.50-2.40); WHITE BLOOD COUNT 17.5 10^3/uL (4.3-11.0)
[2020-09-27 10:48] LABS: BUN/CREATININE RATIO 28; CALCIUM 9.4 MG/DL (8.5-10.1); CARBON DIOXIDE 29 MMOL/L (21-32); CHLORIDE 103 MMOL/L (98-107); CREATININE SERUM 0.81 MG/DL (0.60-1.30); GFR ESTIMATED > 60; GLUCOSE 98 MG/DL (70-105); POTASSIUM 4.1 MMOL/L (3.6-5.0); SODIUM 140 MMOL/L (135-145)
[2020-10-04 09:45] LABS: ABSOLUTE RETIC # 416 10e9/uL (24-90); BASOPHILS # (AUTO) 0.1 10^3/uL (0.0-0.1); BASOPHILS % (AUTO) 1 % (0-10); EOSINOPHILS # (AUTO) 0.2 10^3/uL (0.0-0.3); EOSINOPHILS % (AUTO) 2 % (0-10); HEMATOCRIT 29 % (35-52); HEMOGLOBIN 9.9 g/dL (11.5-16.0); LYMPHOCYTES # (AUTO) 0.8 10^3/uL (1.0-4.0); LYMPHOCYTES % (AUTO) 7 % (12-44); MEAN CORPUSCULAR HEMOGLOBIN 33 pg (25-34); MEAN CORPUSCULAR HGB CONC 34 g/dL (32-36); MEAN CORPUSCULAR VOLUME 97 fL (80-99); MEAN PLATELET VOLUME 9.9 fL (9.0-12.2); MONOCYTES # (AUTO) 0.6 10^3/uL (0.0-1.0); MONOCYTES % (AUTO) 5 % (0-12); NEUTROPHILS # (AUTO) 9.8 10^3/uL (1.8-7.8); NEUTROPHILS % (AUTO) 85 % (42-75); PLATELET COUNT 329 10^3/uL (130-400); RETICULOCYTE % 13.97 % (0.50-2.40); WHITE BLOOD COUNT 11.6 10^3/uL (4.3-11.0)
[2020-10-04 09:57] LABS: BUN/CREATININE RATIO 24; CALCIUM 9.2 MG/DL (8.5-10.1); CARBON DIOXIDE 28 MMOL/L (21-32); CHLORIDE 106 MMOL/L (98-107); CREATININE SERUM 0.83 MG/DL (0.60-1.30); GFR ESTIMATED > 60; GLUCOSE 105 MG/DL (70-105); SODIUM 141 MMOL/L (135-145)
[2020-10-11 10:25] LABS: ABSOLUTE RETIC # 413 10e9/uL (24-90); BASOPHILS # (AUTO) 0.1 10^3/uL (0.0-0.1); BASOPHILS % (AUTO) 1 % (0-10); EOSINOPHILS # (AUTO) 0.1 10^3/uL (0.0-0.3); EOSINOPHILS % (AUTO) 1 % (0-10); HEMATOCRIT 29 % (35-52); HEMOGLOBIN 9.7 g/dL (11.5-16.0); LYMPHOCYTES % (AUTO) 10 % (12-44); MEAN CORPUSCULAR HEMOGLOBIN 33 pg (25-34); MEAN CORPUSCULAR HGB CONC 34 g/dL (32-36); MEAN CORPUSCULAR VOLUME 98 fL (80-99); MEAN PLATELET VOLUME 9.8 fL (9.0-12.2); MONOCYTES # (AUTO) 0.6 10^3/uL (0.0-1.0); MONOCYTES % (AUTO) 6 % (0-12); NEUTROPHILS % (AUTO) 81 % (42-75); PLATELET COUNT 297 10^3/uL (130-400); RETICULOCYTE % 14.19 % (0.50-2.40); WHITE BLOOD COUNT 9.8 10^3/uL (4.3-11.0)
[2020-10-11 10:39] LABS: ALANINE AMINOTRANSFERASE 22 U/L (0-55); ALBUMIN 4.3 GM/DL (3.2-4.5); ALKALINE PHOSPHATASE 68 U/L (40-136); BILIRUBIN,TOTAL 1.8 MG/DL (0.1-1.0); BUN/CREATININE RATIO 23; CALCIUM 9.7 MG/DL (8.5-10.1); CARBON DIOXIDE 30 MMOL/L (21-32); CHLORIDE 105 MMOL/L (98-107); CREATININE SERUM 0.81 MG/DL (0.60-1.30); GFR ESTIMATED > 60; GLUCOSE 113 MG/DL (70-105); POTASSIUM 3.8 MMOL/L (3.6-5.0); SODIUM 141 MMOL/L (135-145); TOTAL PROTEIN 6.2 GM/DL (6.4-8.2)
[2020-11-08 11:01] LABS: ABSOLUTE RETIC # 496 10e9/uL (24-90); BASOPHILS # (AUTO) 0.1 10^3/uL (0.0-0.1); BASOPHILS % (AUTO) 1 % (0-10); EOSINOPHILS # (AUTO) 0.2 10^3/uL (0.0-0.3); EOSINOPHILS % (AUTO) 1 % (0-10); HEMATOCRIT 28 % (35-52); HEMOGLOBIN 9.4 g/dL (11.5-16.0); LYMPHOCYTES # (AUTO) 0.9 10^3/uL (1.0-4.0); LYMPHOCYTES % (AUTO) 7 % (12-44); MEAN CORPUSCULAR HEMOGLOBIN 33 pg (25-34); MEAN CORPUSCULAR HGB CONC 34 g/dL (32-36); MEAN CORPUSCULAR VOLUME 98 fL (80-99); MEAN PLATELET VOLUME 10.4 fL (9.0-12.2); MONOCYTES # (AUTO) 0.6 10^3/uL (0.0-1.0); MONOCYTES % (AUTO) 5 % (0-12); NEUTROPHILS # (AUTO) 11.2 10^3/uL (1.8-7.8); NEUTROPHILS % (AUTO) 86 % (42-75); PLATELET COUNT 401 10^3/uL (130-400); RETICULOCYTE % 17.34 % (0.50-2.40)
== END 2020-11-14 | disposition home or self-care (01) ==
LOC: ONC 10:20
PROVIDERS: ATTEND Internal Medicine Hematology & Oncology
DX: D59.10 Autoimmune hemolytic anemia, unspecified (principal); I10 Essential (primary) hypertension
CPT/HCPCS: 80048; 80053; 82306; 82728; 83615; 85025; 85045; 99213

== ENCOUNTER 2021-03-05 09:25 | Outpatient (RCR) | payer MEDICARE ==
[2020-12-06 10:19] LABS: ABSOLUTE RETIC # 524 10e9/uL (24-90); BASOPHILS # (AUTO) 0.1 10^3/uL (0.0-0.1); BASOPHILS % (AUTO) 1 % (0-10); EOSINOPHILS # (AUTO) 0.2 10^3/uL (0.0-0.3); EOSINOPHILS % (AUTO) 2 % (0-10); HEMATOCRIT 25 % (35-52); HEMOGLOBIN 8.2 g/dL (11.5-16.0); LYMPHOCYTES # (AUTO) 1.2 10^3/uL (1.0-4.0); LYMPHOCYTES % (AUTO) 14 % (12-44); MEAN CORPUSCULAR HEMOGLOBIN 33 pg (25-34); MEAN CORPUSCULAR HGB CONC 33 g/dL (32-36); MEAN CORPUSCULAR VOLUME 101 fL (80-99); MEAN PLATELET VOLUME 9.6 fL (9.0-12.2); MONOCYTES # (AUTO) 0.6 10^3/uL (0.0-1.0); MONOCYTES % (AUTO) 8 % (0-12); NEUTROPHILS # (AUTO) 6.2 10^3/uL (1.8-7.8); NEUTROPHILS % (AUTO) 75 % (42-75); PLATELET COUNT 326 10^3/uL (130-400); RETICULOCYTE % 21.13 % (0.50-2.40); WHITE BLOOD COUNT 8.3 10^3/uL (4.3-11.0)
[2020-12-18 09:40] LABS: ABSOLUTE RETIC # 481 10e9/uL (24-90); BASOPHILS # (AUTO) 0.1 10^3/uL (0.0-0.1); BASOPHILS % (AUTO) 1 % (0-10); EOSINOPHILS # (AUTO) 0.2 10^3/uL (0.0-0.3); EOSINOPHILS % (AUTO) 2 % (0-10); HEMATOCRIT 25 % (35-52); HEMOGLOBIN 8.4 g/dL (11.5-16.0); LYMPHOCYTES # (AUTO) 0.8 10^3/uL (1.0-4.0); LYMPHOCYTES % (AUTO) 8 % (12-44); MEAN CORPUSCULAR HEMOGLOBIN 34 pg (25-34); MEAN CORPUSCULAR HGB CONC 34 g/dL (32-36); MEAN CORPUSCULAR VOLUME 100 fL (80-99); MEAN PLATELET VOLUME 9.6 fL (9.0-12.2); MONOCYTES # (AUTO) 0.6 10^3/uL (0.0-1.0); MONOCYTES % (AUTO) 7 % (0-12); NEUTROPHILS # (AUTO) 7.4 10^3/uL (1.8-7.8); NEUTROPHILS % (AUTO) 81 % (42-75); PLATELET COUNT 319 10^3/uL (130-400); RETICULOCYTE % 19.38 % (0.50-2.40); WHITE BLOOD COUNT 9.1 10^3/uL (4.3-11.0)
[2020-12-18 10:10] LABS: ALBUMIN 4.2 GM/DL (3.2-4.5); BILIRUBIN,TOTAL 2.5 MG/DL (0.1-1.0); CALCIUM 9.8 MG/DL (8.5-10.1); CREATININE SERUM 0.75 MG/DL (0.60-1.30); POTASSIUM 3.9 MMOL/L (3.6-5.0); TOTAL PROTEIN 6.5 GM/DL (6.4-8.2)
[2020-12-25 09:27] LABS: ABSOLUTE RETIC # 485 10e9/uL (24-90); BASOPHILS # (AUTO) 0.1 10^3/uL (0.0-0.1); BASOPHILS % (AUTO) 1 % (0-10); EOSINOPHILS # (AUTO) 0.2 10^3/uL (0.0-0.3); EOSINOPHILS % (AUTO) 2 % (0-10); HEMATOCRIT 27 % (35-52); HEMOGLOBIN 8.8 g/dL (11.5-16.0); LYMPHOCYTES # (AUTO) 0.9 10^3/uL (1.0-4.0); LYMPHOCYTES % (AUTO) 11 % (12-44); MEAN CORPUSCULAR HEMOGLOBIN 33 pg (25-34); MEAN CORPUSCULAR HGB CONC 33 g/dL (32-36); MEAN CORPUSCULAR VOLUME 99 fL (80-99); MEAN PLATELET VOLUME 9.5 fL (9.0-12.2); MONOCYTES # (AUTO) 0.6 10^3/uL (0.0-1.0); MONOCYTES % (AUTO) 7 % (0-12); NEUTROPHILS # (AUTO) 6.7 10^3/uL (1.8-7.8); NEUTROPHILS % (AUTO) 78 % (42-75); PLATELET COUNT 354 10^3/uL (130-400); RETICULOCYTE % 18.08 % (0.50-2.40); WHITE BLOOD COUNT 8.6 10^3/uL (4.3-11.0)
[2020-12-25 09:46] LABS: ALBUMIN 4.4 GM/DL (3.2-4.5); BILIRUBIN,TOTAL 2.6 MG/DL (0.1-1.0); CALCIUM 9.5 MG/DL (8.5-10.1); CREATININE SERUM 0.81 MG/DL (0.60-1.30); POTASSIUM 3.8 MMOL/L (3.6-5.0); TOTAL PROTEIN 6.5 GM/DL (6.4-8.2)
[2021-01-01 09:33] LABS: ABSOLUTE RETIC # 449 10e9/uL (24-90); BASOPHILS # (AUTO) 0.1 10^3/uL (0.0-0.1); BASOPHILS % (AUTO) 1 % (0-10); EOSINOPHILS # (AUTO) 0.1 10^3/uL (0.0-0.3); EOSINOPHILS % (AUTO) 1 % (0-10); HEMATOCRIT 25 % (35-52); HEMOGLOBIN 8.5 g/dL (11.5-16.0); LYMPHOCYTES # (AUTO) 0.8 10^3/uL (1.0-4.0); LYMPHOCYTES % (AUTO) 9 % (12-44); MEAN CORPUSCULAR HEMOGLOBIN 34 pg (25-34); MEAN CORPUSCULAR HGB CONC 34 g/dL (32-36); MEAN CORPUSCULAR VOLUME 100 fL (80-99); MEAN PLATELET VOLUME 9.8 fL (9.0-12.2); MONOCYTES # (AUTO) 0.6 10^3/uL (0.0-1.0); MONOCYTES % (AUTO) 6 % (0-12); NEUTROPHILS % (AUTO) 82 % (42-75); PLATELET COUNT 312 10^3/uL (130-400); RETICULOCYTE % 17.69 % (0.50-2.40); WHITE BLOOD COUNT 9.7 10^3/uL (4.3-11.0)
[2021-01-01 09:57] LABS: ALBUMIN 4.1 GM/DL (3.2-4.5); BILIRUBIN,TOTAL 2.5 MG/DL (0.1-1.0); CALCIUM 9.6 MG/DL (8.5-10.1); CREATININE SERUM 0.73 MG/DL (0.60-1.30); POTASSIUM 3.8 MMOL/L (3.6-5.0); TOTAL PROTEIN 6.2 GM/DL (6.4-8.2)
[2021-01-08 09:18] LABS: ABSOLUTE RETIC # 459 10e9/uL (24-90); BASOPHILS # (AUTO) 0.1 10^3/uL (0.0-0.1); BASOPHILS % (AUTO) 1 % (0-10); EOSINOPHILS # (AUTO) 0.2 10^3/uL (0.0-0.3); EOSINOPHILS % (AUTO) 2 % (0-10); HEMATOCRIT 26 % (35-52); HEMOGLOBIN 8.4 g/dL (11.5-16.0); LYMPHOCYTES % (AUTO) 13 % (12-44); MEAN CORPUSCULAR HEMOGLOBIN 33 pg (25-34); MEAN CORPUSCULAR HGB CONC 33 g/dL (32-36); MEAN CORPUSCULAR VOLUME 99 fL (80-99); MEAN PLATELET VOLUME 9.6 fL (9.0-12.2); MONOCYTES # (AUTO) 0.5 10^3/uL (0.0-1.0); MONOCYTES % (AUTO) 7 % (0-12); NEUTROPHILS # (AUTO) 5.6 10^3/uL (1.8-7.8); NEUTROPHILS % (AUTO) 76 % (42-75); PLATELET COUNT 319 10^3/uL (130-400); RETICULOCYTE % 17.84 % (0.50-2.40); WHITE BLOOD COUNT 7.4 10^3/uL (4.3-11.0)
[2021-01-08 09:40] LABS: BILIRUBIN,TOTAL 2.2 MG/DL (0.1-1.0); CALCIUM 9.2 MG/DL (8.5-10.1); CREATININE SERUM 0.7 MG/DL (0.60-1.30); POTASSIUM 3.5 MMOL/L (3.6-5.0)
[2021-01-16 09:27] LABS: ABSOLUTE RETIC # 494 10e9/uL (24-90); BASOPHILS # (AUTO) 0.1 10^3/uL (0.0-0.1); BASOPHILS % (AUTO) 1 % (0-10); EOSINOPHILS # (AUTO) 0.2 10^3/uL (0.0-0.3); EOSINOPHILS % (AUTO) 2 % (0-10); HEMATOCRIT 27 % (35-52); HEMOGLOBIN 8.9 g/dL (11.5-16.0); LYMPHOCYTES # (AUTO) 1.2 10^3/uL (1.0-4.0); LYMPHOCYTES % (AUTO) 14 % (12-44); MEAN CORPUSCULAR HEMOGLOBIN 33 pg (25-34); MEAN CORPUSCULAR HGB CONC 33 g/dL (32-36); MEAN CORPUSCULAR VOLUME 100 fL (80-99); MEAN PLATELET VOLUME 9.6 fL (9.0-12.2); MONOCYTES # (AUTO) 0.6 10^3/uL (0.0-1.0); MONOCYTES % (AUTO) 7 % (0-12); NEUTROPHILS # (AUTO) 6.4 10^3/uL (1.8-7.8); NEUTROPHILS % (AUTO) 75 % (42-75); PLATELET COUNT 370 10^3/uL (130-400); RETICULOCYTE % 18.22 % (0.50-2.40); WHITE BLOOD COUNT 8.5 10^3/uL (4.3-11.0)
[2021-01-16 09:45] LABS: ALBUMIN 4.4 GM/DL (3.2-4.5); BILIRUBIN,TOTAL 2.4 MG/DL (0.1-1.0); CALCIUM 9.9 MG/DL (8.5-10.1); CREATININE SERUM 0.77 MG/DL (0.60-1.30); POTASSIUM 3.9 MMOL/L (3.6-5.0); TOTAL PROTEIN 6.4 GM/DL (6.4-8.2)
[2021-01-29 09:35] LABS: ABSOLUTE RETIC # 489 10e9/uL (24-90); BASOPHILS # (AUTO) 0.1 10^3/uL (0.0-0.1); BASOPHILS % (AUTO) 1 % (0-10); EOSINOPHILS # (AUTO) 0.2 10^3/uL (0.0-0.3); EOSINOPHILS % (AUTO) 2 % (0-10); HEMATOCRIT 26 % (35-52); HEMOGLOBIN 8.5 g/dL (11.5-16.0); LYMPHOCYTES # (AUTO) 0.8 10^3/uL (1.0-4.0); LYMPHOCYTES % (AUTO) 9 % (12-44); MEAN CORPUSCULAR HEMOGLOBIN 33 pg (25-34); MEAN CORPUSCULAR HGB CONC 33 g/dL (32-36); MEAN CORPUSCULAR VOLUME 101 fL (80-99); MEAN PLATELET VOLUME 10.3 fL (9.0-12.2); MONOCYTES # (AUTO) 0.6 10^3/uL (0.0-1.0); MONOCYTES % (AUTO) 7 % (0-12); NEUTROPHILS # (AUTO) 7.4 10^3/uL (1.8-7.8); NEUTROPHILS % (AUTO) 81 % (42-75); PLATELET COUNT 348 10^3/uL (130-400); RETICULOCYTE % 19.16 % (0.50-2.40); WHITE BLOOD COUNT 9.1 10^3/uL (4.3-11.0)
[2021-01-29 10:13] LABS: ALBUMIN 3.4 GM/DL (3.2-4.5); BILIRUBIN,TOTAL 1.6 MG/DL (0.1-1.0); CALCIUM 7.7 MG/DL (8.5-10.1); CREATININE SERUM 0.59 MG/DL (0.60-1.30); POTASSIUM 3.6 MMOL/L (3.6-5.0)
[2021-02-05 09:31] LABS: ABSOLUTE RETIC # 534 10e9/uL (24-90); BASOPHILS % (AUTO) 0 % (0-10); EOSINOPHILS # (AUTO) 0.1 10^3/uL (0.0-0.3); EOSINOPHILS % (AUTO) 0 % (0-10); HEMATOCRIT 29 % (35-52); HEMOGLOBIN 9.9 g/dL (11.5-16.0); LYMPHOCYTES # (AUTO) 0.7 10^3/uL (1.0-4.0); LYMPHOCYTES % (AUTO) 6 % (12-44); MEAN CORPUSCULAR HEMOGLOBIN 34 pg (25-34); MEAN CORPUSCULAR HGB CONC 34 g/dL (32-36); MEAN CORPUSCULAR VOLUME 99 fL (80-99); MEAN PLATELET VOLUME 9.8 fL (9.0-12.2); MONOCYTES # (AUTO) 0.6 10^3/uL (0.0-1.0); MONOCYTES % (AUTO) 5 % (0-12); NEUTROPHILS # (AUTO) 9.9 10^3/uL (1.8-7.8); NEUTROPHILS % (AUTO) 87 % (42-75); PLATELET COUNT 343 10^3/uL (130-400); RETICULOCYTE % 18.15 % (0.50-2.40); WHITE BLOOD COUNT 11.4 10^3/uL (4.3-11.0)
[2021-02-05 10:02] LABS: ALBUMIN 4.1 GM/DL (3.2-4.5); BILIRUBIN,TOTAL 2.5 MG/DL (0.1-1.0); CALCIUM 9.4 MG/DL (8.5-10.1); CREATININE SERUM 0.74 MG/DL (0.60-1.30); POTASSIUM 3.4 MMOL/L (3.6-5.0); TOTAL PROTEIN 5.9 GM/DL (6.4-8.2)
[2021-02-12 09:24] LABS: ABSOLUTE RETIC # 356 10e9/uL (24-90); BASOPHILS % (AUTO) 0 % (0-10); EOSINOPHILS # (AUTO) 0.1 10^3/uL (0.0-0.3); EOSINOPHILS % (AUTO) 1 % (0-10); HEMATOCRIT 29 % (35-52); HEMOGLOBIN 9.9 g/dL (11.5-16.0); LYMPHOCYTES # (AUTO) 0.7 10^3/uL (1.0-4.0); LYMPHOCYTES % (AUTO) 6 % (12-44); MEAN CORPUSCULAR HEMOGLOBIN 34 pg (25-34); MEAN CORPUSCULAR HGB CONC 34 g/dL (32-36); MEAN CORPUSCULAR VOLUME 101 fL (80-99); MEAN PLATELET VOLUME 9.8 fL (9.0-12.2); MONOCYTES # (AUTO) 0.5 10^3/uL (0.0-1.0); MONOCYTES % (AUTO) 4 % (0-12); NEUTROPHILS # (AUTO) 9.1 10^3/uL (1.8-7.8); NEUTROPHILS % (AUTO) 88 % (42-75); PLATELET COUNT 280 10^3/uL (130-400); RETICULOCYTE % 12.18 % (0.50-2.40); WHITE BLOOD COUNT 10.4 10^3/uL (4.3-11.0)
[2021-02-12 09:42] LABS: ALBUMIN 3.9 GM/DL (3.2-4.5); BILIRUBIN,TOTAL 2.7 MG/DL (0.1-1.0); CALCIUM 9.1 MG/DL (8.5-10.1); CREATININE SERUM 0.82 MG/DL (0.60-1.30); POTASSIUM 3.3 MMOL/L (3.6-5.0); TOTAL PROTEIN 5.7 GM/DL (6.4-8.2)
[2021-02-19 09:38] LABS: ABSOLUTE RETIC # 315 10e9/uL (24-90); BASOPHILS % (AUTO) 0 % (0-10); EOSINOPHILS # (AUTO) 0.1 10^3/uL (0.0-0.3); EOSINOPHILS % (AUTO) 1 % (0-10); HEMATOCRIT 30 % (35-52); HEMOGLOBIN 10.4 g/dL (11.5-16.0); LYMPHOCYTES # (AUTO) 0.7 10^3/uL (1.0-4.0); LYMPHOCYTES % (AUTO) 7 % (12-44); MEAN CORPUSCULAR HEMOGLOBIN 34 pg (25-34); MEAN CORPUSCULAR HGB CONC 34 g/dL (32-36); MEAN CORPUSCULAR VOLUME 98 fL (80-99); MEAN PLATELET VOLUME 9.5 fL (9.0-12.2); MONOCYTES # (AUTO) 0.4 10^3/uL (0.0-1.0); MONOCYTES % (AUTO) 3 % (0-12); NEUTROPHILS # (AUTO) 9.4 10^3/uL (1.8-7.8); NEUTROPHILS % (AUTO) 88 % (42-75); PLATELET COUNT 275 10^3/uL (130-400); RETICULOCYTE % 10.18 % (0.50-2.40); WHITE BLOOD COUNT 10.7 10^3/uL (4.3-11.0)
[2021-02-19 10:13] LABS: ALBUMIN 4.1 GM/DL (3.2-4.5); BILIRUBIN,TOTAL 2.3 MG/DL (0.1-1.0); CALCIUM 9.4 MG/DL (8.5-10.1); CREATININE SERUM 0.78 MG/DL (0.60-1.30); POTASSIUM 3.7 MMOL/L (3.6-5.0); TOTAL PROTEIN 5.9 GM/DL (6.4-8.2)
[2021-02-26 10:58] LABS: ABSOLUTE RETIC # 395 10e9/uL (24-90); BASOPHILS # (AUTO) 0.1 10^3/uL (0.0-0.1); BASOPHILS % (AUTO) 0 % (0-10); EOSINOPHILS # (AUTO) 0.1 10^3/uL (0.0-0.3); EOSINOPHILS % (AUTO) 0 % (0-10); HEMATOCRIT 33 % (35-52); HEMOGLOBIN 11.4 g/dL (11.5-16.0); LYMPHOCYTES # (AUTO) 0.8 10^3/uL (1.0-4.0); LYMPHOCYTES % (AUTO) 6 % (12-44); MEAN CORPUSCULAR HEMOGLOBIN 33 pg (25-34); MEAN CORPUSCULAR HGB CONC 35 g/dL (32-36); MEAN CORPUSCULAR VOLUME 96 fL (80-99); MEAN PLATELET VOLUME 9.7 fL (9.0-12.2); MONOCYTES # (AUTO) 0.5 10^3/uL (0.0-1.0); MONOCYTES % (AUTO) 4 % (0-12); NEUTROPHILS # (AUTO) 10.4 10^3/uL (1.8-7.8); NEUTROPHILS % (AUTO) 87 % (42-75); PLATELET COUNT 333 10^3/uL (130-400); RETICULOCYTE % 11.54 % (0.50-2.40)
[2021-02-26 11:26] LABS: ALBUMIN 4.3 GM/DL (3.2-4.5); BILIRUBIN,TOTAL 2.6 MG/DL (0.1-1.0); CALCIUM 9.7 MG/DL (8.5-10.1); CREATININE SERUM 0.81 MG/DL (0.60-1.30); POTASSIUM 4.1 MMOL/L (3.6-5.0); TOTAL PROTEIN 6.5 GM/DL (6.4-8.2)
[~2021-03-05] VITALS: Ht 157.5 cm; Wt 70.3 kg
[~2021-03-05 09:25] MED LIST changes: +ACETAMINOPHEN 325 MG TAB (TYLENOL) CANCER CTR PO PRN; +NS IV 1000 ML (CANCER CTR) IV SCH; +RITUXIMAB-ABBS 500 MG, RITUXIMAB-ABBS 200 MG in NS (IVPB) CANCER CENTER ONLY 150 ML IV SCH; +diphenhydrAMINE 25 MG TAB (BENADRYL) CANCER CENTER PO ONE; +diphenhydrAMINE 25 MG TAB (BENADRYL) CANCER CENTER PO SCH; +diphenhydrAMINE 50 MG/ML INJ (CANCER CENTER) IV PRN; +methylPREDNISolone 125 MG/2 ML (SOLU-MEDROL) CANCER CTR ONE
[2021-03-05 09:39] LABS: ABSOLUTE RETIC # 354 10e9/uL (24-90); BASOPHILS % (AUTO) 0 % (0-10); EOSINOPHILS # (AUTO) 0.1 10^3/uL (0.0-0.3); EOSINOPHILS % (AUTO) 1 % (0-10); HEMATOCRIT 31 % (35-52); HEMOGLOBIN 10.5 g/dL (11.5-16.0); LYMPHOCYTES # (AUTO) 1.2 10^3/uL (1.0-4.0); LYMPHOCYTES % (AUTO) 15 % (12-44); MEAN CORPUSCULAR HEMOGLOBIN 33 pg (25-34); MEAN CORPUSCULAR HGB CONC 34 g/dL (32-36); MEAN CORPUSCULAR VOLUME 98 fL (80-99); MEAN PLATELET VOLUME 9.7 fL (9.0-12.2); MONOCYTES # (AUTO) 0.6 10^3/uL (0.0-1.0); MONOCYTES % (AUTO) 7 % (0-12); NEUTROPHILS # (AUTO) 5.7 10^3/uL (1.8-7.8); NEUTROPHILS % (AUTO) 75 % (42-75); PLATELET COUNT 276 10^3/uL (130-400); WHITE BLOOD COUNT 7.6 10^3/uL (4.3-11.0)
[2021-03-05 09:52] LABS: CLARITY,URINE CLEAR; GLUCOSE, URINE (UA) 1+ (NEGATIVE); KETONES,URINE TRACE (NEGATIVE); LEUKOCYTE ESTERASE ,URINE 3+ (NEGATIVE); NITRITE,URINE POSITIVE (NEGATIVE); PROTEIN,URINE 2+ (NEGATIVE)
[2021-03-05 09:57] LABS: BILIRUBIN,TOTAL 1.8 MG/DL (0.1-1.0); CALCIUM 9.5 MG/DL (8.5-10.1); CREATININE SERUM 0.78 MG/DL (0.60-1.30); POTASSIUM 3.6 MMOL/L (3.6-5.0)
[2021-03-05 10:01] LABS: BILIRUBIN,URINE 2+ (NEGATIVE)
[2021-03-05 10:02] LABS: COLOR,URINE ORANGE
[2021-03-05 10:06] LABS: BACTERIA,URINE LARGE /HPF; SQUAMOUS EPITHELIAL CELL,UR 0-2 /HPF; WBC,URINE 50-100 /HPF
== END 2021-03-06 | disposition home or self-care (01) ==
LOC: ONC 09:25
PROVIDERS: ATTEND Nurse Practitioner Adult Health
DX: Z51.11 Encounter for antineoplastic chemotherapy (principal); D59.10 Autoimmune hemolytic anemia, unspecified; M06.9 Rheumatoid arthritis, unspecified; I10 Essential (primary) hypertension; E66.9 Obesity, unspecified
CPT/HCPCS: 36415; 36591; 80053; 81000; 82306; 82728; 83615; 85025; 85045; 87077; 87088; 87186; 96375; 96413; 96415; 99213

== ENCOUNTER 2021-03-17 04:39 | Emergency (ER) | payer MEDICARE ==
[~2021-03-17] VITALS: Ht 158 cm; Wt 67.0 kg
[~2021-03-17 04:39] MED LIST changes: -ACETAMINOPHEN 325 MG TAB (TYLENOL) CANCER CTR PO PRN; -NS IV 1000 ML (CANCER CTR) IV SCH; -RITUXIMAB-ABBS 500 MG, RITUXIMAB-ABBS 200 MG in NS (IVPB) CANCER CENTER ONLY 150 ML IV SCH; -diphenhydrAMINE 25 MG TAB (BENADRYL) CANCER CENTER PO ONE; -diphenhydrAMINE 25 MG TAB (BENADRYL) CANCER CENTER PO SCH; -diphenhydrAMINE 50 MG/ML INJ (CANCER CENTER) IV PRN; -methylPREDNISolone 125 MG/2 ML (SOLU-MEDROL) CANCER CTR ONE
--- NOTE | 2021-03-17 05:11 | ED GU-Female ---
General Stated Complaint: UTI Source: patient History of Present Illness Date Seen by Provider: Mar 17, 2021 Time Seen by Provider: 04:55 Initial Comments PT ARRIVES VIA POV FROM HOME C/O UTI SYMPTOMS--BEGAN TONIGHT WAS TREATED FOR UTI 3 WEEKS AGO, AND SYMPTOMS WENT AWAY, BUT RETURNED TONIGHT PER MED RECONCILIATION, PT WAS PRESCRIBED LEVAQUIN 500 MG DAILY X 3 DAYS ON 03/05/21 C/O SEVERE PAIN ON URINATION NO FEVER NO NAUSEA/VOMITING TOOK URISTAT PRIOR TO ARRIVAL PT JUST COMPLETED 8 WEEK TREATMENT OF RITUXAN FOR AUTOIMMUNE HEMOLYTIC ANEMIA--COMPLETED TREATMENT 3-4 WEEKS AGO Allergies and Home Medications Allergies Coded Allergies: NKANo Known Allergies (Verified Allergy, Unknown, 12/27/05) codeine (Verified Allergy, Unknown, 09/09/19) Patient Home Medication List Albuterol Sulfate (Ventolin Hfa) 18 Gm Hfa.aer.ad, 2 PUFF PO Q4H PRN for SHORTNESS OF BREATH, (Reported) Entered as Reported by: HETAL RAMOS on 09/06/19 115 Biotin (Biotin) 1,000 Mcg Tab.chew, 1,000 MCG PO DAILY, (Reported) Entered as Reported by: HETAL RAMOS on 09/06/19 115 Cholecalciferol (Vitamin D3) (Vitamin D3) 25 Mcg Tab.chew, 25 MCG PO DAILY, (Reported) Entered as Reported by: HETAL RAMOS on 09/06/19 115 Cranberry Fruit (Cranberry) 500 Mg Tab.chew, 500 MG PO DAILY, (Reported) Entered as Reported by: HETAL RAMOS on 09/06/19 115 Cyanocobalamin (Vitamin B-12) (Vitamin B12) 2,500 Mcg Tab.chew, 2,500 MCG PO DAILY, (Reported) Entered as Reported by: HETAL RAMOS on 09/06/19 115 Estradiol (Estradiol) 42.5 Gm Cream.appl, 1 APPFUL VG WEEKLY, (Reported) Entered as Reported by: HETAL RAMOS on 09/06/19 115 Fluoxetine HCl (Fluoxetine HCl) 20 Mg Capsule, 20 MG PO 1800, (Reported) Entered as Reported by: HETAL RAMOS on 09/06/19 115 Folic Acid/Multivit-Minerals (Women's Multivitamin Gummies) 200 Mcg Tab.chew, 200 MCG PO DAILY, (Reported) Entered as Reported by: HETAL RAMOS on 09/06/19 1155 Inulin/Chromium Picolinate (Fiber Gummies) 1 Each Tab.chew, 1 EACH PO DAILY, (Reported) Entered as Reported by: HETAL RAMOS on 09/06/19 115 Magnesium Oxide (Magnesium) 400 Mg Tablet, 400 MG PO DAILY, (Reported) Entered as Reported by: HETAL RAMOS on 09/06/19 115 Moexipril HCl (Moexipril HCl) 7.5 Mg Tablet, 7.5 MG PO 1800, (Reported) Entered as Reported by: HETAL RAMOS on 09/06/19 115 Nitrofurantoin Monohyd/M-Cryst (Macrobid 100 mg Capsule) 100 Mg Capsule, 1 TAB PO BID Prescribed by: TIMOTHY NGUYEN on 03/17/21 0539 Pantoprazole Sodium (Pantoprazole Sodium) 40 Mg Tablet.dr, 40 MG PO BID Prescribed by: PRITESH CHAVES on 09/07/19 1231 Peg 400/Hypromellose/Glycerin (Visine Dry Eye Relief Drop) 15 Ml Drops, 2 DROPS OU PRN PRN for DRY EYES, (Reported) Entered as Reported by: HETAL RAMOS on 09/06/19 1155 Phenazopyridine HCl (Pyridium) 200 Mg Tablet, 1 TAB PO TID Prescribed by: TIMOTHY NGUYEN on 03/17/21 0539 Prednisone (Prednisone) 50 Mg Tab, 100 MG PO DAILY Prescribed by: PRITESH CHAVES on 09/07/19 1232 Simvastatin (Simvastatin) 20 Mg Tablet, 20 MG PO 1800, (Reported) Entered as Reported by: HETAL RAMOS on 09/06/19 1155 Spironolactone (Spironolactone) 100 Mg Tablet, 100 MG PO 1800, (Reported) Entered as Reported by: HETAL RAMOS on 09/06/19 1155 Turmeric Root Extract (Turmeric) 538 Mg Capsule, 538 MG PO DAILY, (Reported) Entered as Reported by: HETAL RAMOS on 09/06/19 1155 [Folic Acid] 1 MG TAB, 1 MG PO DAILY Prescribed by: PRITESH CHAVES on 09/07/19 1231 Review of Systems Review of Systems Constitutional: no symptoms reported Respiratory: no symptoms reported Cardiovascular: no symptoms reported Gastrointestinal: no symptoms reported Genitourinary: see HPI Musculoskeletal: no symptoms reported Skin: no symptoms reported Psychiatric/Neurological: No Symptoms Reported Endocrine: No Symptoms Reported Hematologic/Lymphatic: See HPI, Anemia Past Xchbeab-Icsozi-Weobvn Hx Patient Social History Tobacco Use?: No Substance use?: No Alcohol Use?: No Seasonal Allergies Seasonal Allergies: Yes Past Medical History Surgeries: Yes (SEE BELOW) Adenoidectomy, Appendectomy, Gallbladder, Hysterectomy, Oophorectomy, Orthopedic, Tonsillectomy Respiratory: Yes Asthma Cardiac: Yes Chronic Edema/Swelling, Hypertension Neurological: No Reproductive Disorders: 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) 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, 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 Genitourinary: No Gastrointestinal: Yes Polyps Musculoskeletal: Yes (CHRONIC NECK PAIN--S/P CERVICAL SPINE [id number]) Degenerate Disk Disease, Osteoporosis, Arthritis, Rheumatoid Arthritis, Chronic Back Pain, Fractures Endocrine: No HEENT: No Cancer: Yes Cervical Did You Recieve Any Treatments: Yes What Type of Treatment Did You: Surgical Intervention Psychosocial: No Integumentary: No Blood Disorders: Yes (AUTOIMMUNE HEMOLYTIC ANEMIA) Family Medical History No Pertinent Family Hx PSH: -APPENDECTOMY AGE 15 -TONSILLECTOMY/ADENOIDECTOMY -HYSTERECTOMY 1987 FOR CERVICAL CANCER -BSO 1994--DUE TO MOTHER WITH OVARIAN CANCER -CHOLECYSTECTOMY 2005 -RIGHT WRIST/FOREARM FX/ORIF -CERVICAL SPINE FUSION--[id number]--DR. ANA MARÍA GAINES -EGD/COLONSCOPIES Physical Exam Vital Signs Vital Signs - First Documented 03/17/21 04:55 Temp 36.5 Pulse 56 Resp 16 B/P (MAP) 153/71 (98) Pulse Ox 100 O2 Delivery Room Air Capillary Refill : Height, Weight, BMI Height: 5'2" Weight: 170lbs. oz. 77.871666ix; 29.00 BMI Method:Stated General Appearance: WD/WN, no apparent distress Cardiovascular: regular rate, rhythm, no murmur Respiratory: normal breath sounds, no respiratory distress, no accessory muscle use Gastrointestinal: soft Extremities: normal inspection Neurologic/Psychiatric: title closer II-XII nml as tested, no motor/sensory deficits, alert, normal mood/affect, oriented x 3 Skin: normal color, warm/dry Progress/Results/Core Measures Suspected Sepsis SIRS Temperature: Pulse: Respiratory Rate: Blood Pressure / Mean: Results/Orders Lab Results Laboratory Tests Test 03/17/21 04:58 Range/Units Urine Color ORANGE Urine Clarity TURBID Urine pH 6.5 5-9 Urine Specific Sapphire >=1.030 1.016-1.022 Urine Protein 3+ H NEGATIVE Urine Glucose (UA) 1+ H NEGATIVE Urine Ketones 1+ H NEGATIVE Urine Nitrite POSITIVE H NEGATIVE Urine Bilirubin NEGATIVE NEGATIVE Urine Urobilinogen >=8.0 < = 1.0 MG/DL Urine Leukocyte Esterase 2+ H NEGATIVE Urine RBC (Auto) TRACE-I H NEGATIVE Urine RBC 2-5 H /HPF Urine WBC >100 H /HPF Urine Squamous Epithelial Cells 0-2 /HPF Urine Crystals NONE /LPF Urine Bacteria LARGE H /HPF Urine Casts NONE /LPF Urine Mucus NEGATIVE /LPF Urine Culture Indicated YES My Orders Orders - TIMOTHY NGUYEN DO Ua Culture If Indicated (03/17/21 04:48) Urine Culture (03/17/21 04:58) Phenazopyridine Tablet (Pyridium Tablet) (03/17/21 06:00) Ceftriaxone (Rocephin) (03/17/21 06:00) Lidocaine 1% Inj 20 Ml (Xylocaine 1% Inj (03/17/21 06:00) Vital Signs/I&O 03/17/21 04:55 Temp 36.5 Pulse 56 Resp 16 B/P (MAP) 153/71 (98) Pulse Ox 100 O2 Delivery Room Air Capillary Refill : Departure Impression Primary Impression: Urinary tract infection Disposition: 01 HOME, SELF-CARE Condition: Stable Departure-Patient Inst. Referrals: MOO SHAY MD (PCP/Family) Primary Care Physician Patient Instructions: Urinary Tract Infection, Adult (DC) Add. Discharge Instructions: LOTS OF CLEAR LIQUIDS TYLENOL NEEDED FOR PAIN OR FEVER FOLLOW UP WITH YOUR DR IN 5-7 DAYS FOR FURTHER CARE, RETURN TO ER IF WORSE Scripts Phenazopyridine HCl (Pyridium) 200 Mg Tablet 1 TAB PO TID, #15 TAB Prov: TIMOTHY NGUYEN DO 03/17/21 Nitrofurantoin Monohyd/M-Cryst (Macrobid 100 mg Capsule) 100 Mg Capsule 1 TAB PO BID, #20 CAP Prov: JAH NGUYENA K 03/17/21 TIMOTHY NGUYEN DO Mar 17, 2021 05:11
[2021-03-17 05:32] LABS: CLARITY,URINE TURBID; COLOR,URINE ORANGE; GLUCOSE, URINE (UA) 1+ (NEGATIVE); KETONES,URINE 1+ (NEGATIVE); LEUKOCYTE ESTERASE ,URINE 2+ (NEGATIVE); NITRITE,URINE POSITIVE (NEGATIVE); PH,URINE 6.5 (5-9); PROTEIN,URINE 3+ (NEGATIVE)
[2021-03-17 05:38] LABS: BACTERIA,URINE LARGE /HPF; WBC,URINE >100 /HPF
[2021-03-17 05:39] LABS: BILIRUBIN,URINE NEGATIVE (NEGATIVE); SQUAMOUS EPITHELIAL CELL,UR 0-2 /HPF
[2021-03-17] MEDS ORDERED: PHEN-640 PO (05:39)
[2021-03-17] MEDS ORDERED: NITR-65 PO (05:39)
[2021-03-17] MEDS ORDERED: cefTRIAXone 1,000 MG VIAL IM ONE (06:00)
[2021-03-17] MEDS ORDERED: PHENAZOPYRIDINE 100 MG (PYRIDIUM) TABLET PO ONE (06:00)
[2021-03-17] MEDS ORDERED: LIDOCAINE 1% INJ 20 ML 20 ML VIAL INJ ONE (06:00)
[2021-03-17 06:30] VITALS: BP 141/58
== END 2021-03-17 06:28 | disposition home or self-care (01) ==
LOC: EDUNIT# 04:39 → ER 04:45
DX: N39.0 Urinary tract infection, site not specified (principal); J45.909 Unspecified asthma, uncomplicated; I10 Essential (primary) hypertension; Z79.52 Long term (current) use of systemic steroids
CPT/HCPCS: 81000; 87077; 87088; 87186; 99284

== ENCOUNTER → 2021-04-02 | Outpatient (CLI) | payer MEDICARE ==
[~2021-04-02] MED LIST changes: +CATHETER FLUSH 10 ML SYR IV PRN; +HOLD METFORMIN - RECEIVED CONTRAST 20 ML VIAL IV SCH; +IOHEXOL 350 MG/ML 100 ML (OMNIPAQUE 350) VIAL IV ONE; +NITR-65 PO; +NS 100 ML (IVPB) BAG IV ONE; +PHEN-640 PO
--- NOTE | 2021-04-02 10:21 | Diagnostic Imaging Report ---
EXAMINATION: CT chest with intravenous contrast. TECHNIQUE: Multiple contiguous axial images were obtained through the chest after the uneventful administration of intravenous contrast. All CT scans use one or more of the following dose optimizing techniques: automated exposure control, MA and/or KvP adjustment based on patient size and exam type or iterative reconstruction. HISTORY: Pulmonary nodules. COMPARISON: 09/05/2019. FINDINGS: There is no edema or pneumonia. No pleural effusion. No pneumothorax. A 5 mm right upper lobe nodule is stable. The previously seen left upper lobe nodules have resolved. No new nodules are seen. There is no axillary or supraclavicular lymphadenopathy. There is no mediastinal lymphadenopathy. Heart size is normal. There are moderate coronary artery calcifications. No pericardial effusion. Aorta is normal in caliber. Limited views of the upper abdomen show changes of cholecystectomy. There is a cyst in the right kidney with a thin septation, unchanged from the prior exam. There are no suspicious osseus lesions. IMPRESSION: Two of the pulmonary nodules have resolved and one is stable. These can be considered benign and no further followup is needed. Dictated by: Dictated on workstation # [id number]
== END ==
LOC: RAD 09:45
PROVIDERS: ATTEND Nurse Practitioner Adult Health
DX: R91.8 Other nonspecific abnormal finding of lung field (principal)
CPT/HCPCS: 71260

== ENCOUNTER 2021-04-30 09:17 | Outpatient (RCR) | payer MEDICARE ==
[2021-03-12 10:24] LABS: ABSOLUTE RETIC # 449 10e9/uL (24-90); BASOPHILS % (AUTO) 1 % (0-10); EOSINOPHILS % (AUTO) 0 % (0-10); HEMATOCRIT 30 % (35-52); HEMOGLOBIN 10.4 g/dL (11.5-16.0); LYMPHOCYTES # (AUTO) 1.2 10^3/uL (1.0-4.0); LYMPHOCYTES % (AUTO) 27 % (12-44); MEAN CORPUSCULAR HEMOGLOBIN 33 pg (25-34); MEAN CORPUSCULAR HGB CONC 35 g/dL (32-36); MEAN CORPUSCULAR VOLUME 97 fL (80-99); MEAN PLATELET VOLUME 9.6 fL (9.0-12.2); MONOCYTES # (AUTO) 0.5 10^3/uL (0.0-1.0); MONOCYTES % (AUTO) 11 % (0-12); NEUTROPHILS # (AUTO) 2.7 10^3/uL (1.8-7.8); NEUTROPHILS % (AUTO) 60 % (42-75); PLATELET COUNT 272 10^3/uL (130-400); RETICULOCYTE % 14.39 % (0.50-2.40); WHITE BLOOD COUNT 4.6 10^3/uL (4.3-11.0)
[2021-03-12 10:45] LABS: ALBUMIN 4.2 GM/DL (3.2-4.5); BILIRUBIN,TOTAL 2.1 MG/DL (0.1-1.0); CALCIUM 9.2 MG/DL (8.5-10.1); CREATININE SERUM 0.76 MG/DL (0.60-1.30)
[2021-03-19 09:23] LABS: ABSOLUTE RETIC # 472 10e9/uL (24-90); BASOPHILS % (AUTO) 1 % (0-10); EOSINOPHILS % (AUTO) 1 % (0-10); HEMATOCRIT 30 % (35-52); HEMOGLOBIN 10.2 g/dL (11.5-16.0); LYMPHOCYTES # (AUTO) 1.2 10^3/uL (1.0-4.0); LYMPHOCYTES % (AUTO) 22 % (12-44); MEAN CORPUSCULAR HEMOGLOBIN 33 pg (25-34); MEAN CORPUSCULAR HGB CONC 34 g/dL (32-36); MEAN CORPUSCULAR VOLUME 98 fL (80-99); MEAN PLATELET VOLUME 9.4 fL (9.0-12.2); MONOCYTES # (AUTO) 0.6 10^3/uL (0.0-1.0); MONOCYTES % (AUTO) 11 % (0-12); NEUTROPHILS # (AUTO) 3.5 10^3/uL (1.8-7.8); NEUTROPHILS % (AUTO) 65 % (42-75); PLATELET COUNT 279 10^3/uL (130-400); RETICULOCYTE % 15.23 % (0.50-2.40); WHITE BLOOD COUNT 5.4 10^3/uL (4.3-11.0)
[2021-03-19 09:42] LABS: BILIRUBIN,TOTAL 1.3 MG/DL (0.1-1.0); CALCIUM 9.1 MG/DL (8.5-10.1); CREATININE SERUM 0.77 MG/DL (0.60-1.30); POTASSIUM 3.8 MMOL/L (3.6-5.0); TOTAL PROTEIN 6.1 GM/DL (6.4-8.2)
[2021-03-26 16:29] LABS: ABSOLUTE RETIC # 404 10e9/uL (24-90); BASOPHILS # (AUTO) 0.1 10^3/uL (0.0-0.1); BASOPHILS % (AUTO) 1 % (0-10); EOSINOPHILS # (AUTO) 0.1 10^3/uL (0.0-0.3); EOSINOPHILS % (AUTO) 1 % (0-10); HEMATOCRIT 35 % (35-52); HEMOGLOBIN 11.5 g/dL (11.5-16.0); LYMPHOCYTES % (AUTO) 22 % (12-44); MEAN CORPUSCULAR HEMOGLOBIN 33 pg (25-34); MEAN CORPUSCULAR HGB CONC 33 g/dL (32-36); MEAN CORPUSCULAR VOLUME 101 fL (80-99); MEAN PLATELET VOLUME 10.3 fL (9.0-12.2); MONOCYTES # (AUTO) 0.8 10^3/uL (0.0-1.0); MONOCYTES % (AUTO) 9 % (0-12); NEUTROPHILS % (AUTO) 67 % (42-75); PLATELET COUNT 366 10^3/uL (130-400); RETICULOCYTE % 11.51 % (0.50-2.40); WHITE BLOOD COUNT 9.1 10^3/uL (4.3-11.0)
[2021-03-26 16:49] LABS: ALBUMIN 4.3 GM/DL (3.2-4.5); BILIRUBIN,TOTAL 1.5 MG/DL (0.1-1.0); CALCIUM 9.5 MG/DL (8.5-10.1); CREATININE SERUM 0.75 MG/DL (0.60-1.30); POTASSIUM 2.7 MMOL/L (3.6-5.0); TOTAL PROTEIN 6.3 GM/DL (6.4-8.2)
[2021-04-02 09:36] LABS: ALBUMIN 4.2 GM/DL (3.2-4.5); BILIRUBIN,TOTAL 1.7 MG/DL (0.1-1.0); CALCIUM 9.8 MG/DL (8.5-10.1); CREATININE SERUM 0.77 MG/DL (0.60-1.30); TOTAL PROTEIN 6.3 GM/DL (6.4-8.2)
[2021-04-02 09:42] LABS: ABSOLUTE RETIC # 427 10e9/uL (24-90); BASOPHILS # (AUTO) 0.1 10^3/uL (0.0-0.1); BASOPHILS % (AUTO) 1 % (0-10); EOSINOPHILS # (AUTO) 0.2 10^3/uL (0.0-0.3); EOSINOPHILS % (AUTO) 3 % (0-10); HEMATOCRIT 36 % (35-52); HEMOGLOBIN 12.2 g/dL (11.5-16.0); LYMPHOCYTES # (AUTO) 1.8 10^3/uL (1.0-4.0); LYMPHOCYTES % (AUTO) 20 % (12-44); MEAN CORPUSCULAR HEMOGLOBIN 32 pg (25-34); MEAN CORPUSCULAR HGB CONC 34 g/dL (32-36); MEAN CORPUSCULAR VOLUME 94 fL (80-99); MEAN PLATELET VOLUME 9.9 fL (9.0-12.2); MONOCYTES # (AUTO) 0.6 10^3/uL (0.0-1.0); MONOCYTES % (AUTO) 7 % (0-12); NEUTROPHILS # (AUTO) 6.1 10^3/uL (1.8-7.8); NEUTROPHILS % (AUTO) 68 % (42-75); PLATELET COUNT 413 10^3/uL (130-400); RETICULOCYTE % 11.18 % (0.50-2.40)
[2021-04-16 08:56] LABS: ABSOLUTE RETIC # 345 10e9/uL (24-90); BASOPHILS # (AUTO) 0.1 10^3/uL (0.0-0.1); BASOPHILS % (AUTO) 1 % (0-10); EOSINOPHILS # (AUTO) 0.2 10^3/uL (0.0-0.3); EOSINOPHILS % (AUTO) 2 % (0-10); HEMATOCRIT 33 % (35-52); HEMOGLOBIN 11.2 g/dL (11.5-16.0); LYMPHOCYTES # (AUTO) 1.7 10^3/uL (1.0-4.0); LYMPHOCYTES % (AUTO) 23 % (12-44); MEAN CORPUSCULAR HEMOGLOBIN 32 pg (25-34); MEAN CORPUSCULAR HGB CONC 34 g/dL (32-36); MEAN CORPUSCULAR VOLUME 95 fL (80-99); MEAN PLATELET VOLUME 9.6 fL (9.0-12.2); MONOCYTES # (AUTO) 0.5 10^3/uL (0.0-1.0); MONOCYTES % (AUTO) 6 % (0-12); NEUTROPHILS # (AUTO) 5.2 10^3/uL (1.8-7.8); NEUTROPHILS % (AUTO) 67 % (42-75); PLATELET COUNT 325 10^3/uL (130-400); RETICULOCYTE % 9.86 % (0.50-2.40); WHITE BLOOD COUNT 7.7 10^3/uL (4.3-11.0)
[2021-04-16 09:15] LABS: BILIRUBIN,TOTAL 1.2 MG/DL (0.1-1.0); CALCIUM 9.2 MG/DL (8.5-10.1); CREATININE SERUM 0.76 MG/DL (0.60-1.30); POTASSIUM 3.6 MMOL/L (3.6-5.0); TOTAL PROTEIN 5.8 GM/DL (6.4-8.2)
[~2021-04-30 09:17] MED LIST changes: -CATHETER FLUSH 10 ML SYR IV PRN; -FLUO20CA46 PO; +FLUO20CA48 PO; -HOLD METFORMIN - RECEIVED CONTRAST 20 ML VIAL IV SCH; -IOHEXOL 350 MG/ML 100 ML (OMNIPAQUE 350) VIAL IV ONE; -NS 100 ML (IVPB) BAG IV ONE
[2021-04-30 10:45] LABS: BASOPHILS # (AUTO) 0.1 10^3/uL (0.0-0.1); BASOPHILS % (AUTO) 1 % (0-10); EOSINOPHILS # (AUTO) 0.2 10^3/uL (0.0-0.3); EOSINOPHILS % (AUTO) 2 % (0-10); HEMATOCRIT 31 % (35-52); HEMOGLOBIN 10.4 g/dL (11.5-16.0); LYMPHOCYTES # (AUTO) 1.2 10^3/uL (1.0-4.0); LYMPHOCYTES % (AUTO) 12 % (12-44); MEAN CORPUSCULAR HEMOGLOBIN 32 pg (25-34); MEAN CORPUSCULAR HGB CONC 34 g/dL (32-36); MEAN CORPUSCULAR VOLUME 94 fL (80-99); MEAN PLATELET VOLUME 10.4 fL (9.0-12.2); MONOCYTES # (AUTO) 0.7 10^3/uL (0.0-1.0); MONOCYTES % (AUTO) 7 % (0-12); NEUTROPHILS # (AUTO) 7.7 10^3/uL (1.8-7.8); NEUTROPHILS % (AUTO) 78 % (42-75); PLATELET COUNT 288 10^3/uL (130-400); WHITE BLOOD COUNT 9.9 10^3/uL (4.3-11.0)
== END 2021-05-11 | disposition home or self-care (01) ==
LOC: ONC 09:17
PROVIDERS: ATTEND Internal Medicine Hematology & Oncology
DX: D59.10 Autoimmune hemolytic anemia, unspecified (principal); M85.88 Other specified disorders of bone density and structure, other site; I10 Essential (primary) hypertension; E66.9 Obesity, unspecified; M06.9 Rheumatoid arthritis, unspecified; Z78.0 Asymptomatic menopausal state
CPT/HCPCS: 80053; 83615; 85025; 85045; 99213

== ENCOUNTER 2021-05-14 10:15 | Outpatient (RCR) | payer MEDICARE ==
[2021-05-14 10:40] LABS: ABSOLUTE RETIC # 400 10e9/uL (24-90); BASOPHILS # (AUTO) 0.1 10^3/uL (0.0-0.1); BASOPHILS % (AUTO) 1 % (0-10); EOSINOPHILS # (AUTO) 0.1 10^3/uL (0.0-0.3); EOSINOPHILS % (AUTO) 1 % (0-10); HEMATOCRIT 33 % (35-52); HEMOGLOBIN 11.9 g/dL (11.5-16.0); LYMPHOCYTES # (AUTO) 0.7 10^3/uL (1.0-4.0); LYMPHOCYTES % (AUTO) 6 % (12-44); MEAN CORPUSCULAR HEMOGLOBIN 33 pg (25-34); MEAN CORPUSCULAR HGB CONC 36 g/dL (32-36); MEAN CORPUSCULAR VOLUME 93 fL (80-99); MEAN PLATELET VOLUME 9.8 fL (9.0-12.2); MONOCYTES # (AUTO) 0.6 10^3/uL (0.0-1.0); MONOCYTES % (AUTO) 5 % (0-12); NEUTROPHILS # (AUTO) 10.1 10^3/uL (1.8-7.8); NEUTROPHILS % (AUTO) 87 % (42-75); PLATELET COUNT 364 10^3/uL (130-400); RETICULOCYTE % 11.15 % (0.50-2.40); WHITE BLOOD COUNT 11.7 10^3/uL (4.3-11.0)
== END 2021-06-11 | disposition home or self-care (01) ==
LOC: ONC 10:15
PROVIDERS: ATTEND Internal Medicine Hematology & Oncology
DX: D59.10 Autoimmune hemolytic anemia, unspecified (principal); M85.88 Other specified disorders of bone density and structure, other site; M35.00 Sjogren syndrome, unspecified; I10 Essential (primary) hypertension; E66.9 Obesity, unspecified; Z78.0 Asymptomatic menopausal state; Z79.52 Long term (current) use of systemic steroids
CPT/HCPCS: 85025; 85045

== ENCOUNTER 2022-06-29 10:14 | Emergency (ER) | payer MEDICARE ==
[~2022-06-29] VITALS: Ht 157 cm; Wt 68.0 kg
--- NOTE | 2022-06-29 10:40 | ED Chest Pain ---
General Chief Complaint: Chest Pain Stated Complaint: CHEST PAINS Nursing Triage Note: PT AMB TO RM 7 PT CO OF CHEST PAIN 4/10, STERNAL R JAW AND BACK. Source: patient, family Exam Limitations: no limitations History of Present Illness Date Seen by Provider: Jun 29, 2022 Time Seen by Provider: 10:20 Initial Comments 72-year-old female presents to the emergency department today for chest pain. It is burning sensation in her anterior chest and between her shoulder blades bilaterally. It did go up into her right jaw prior to arrival. The chest pain itself has gone away but she is now having burning pain between her shoulder blades. She states she started to "get sick" yesterday with a productive cough and green sputum. No fevers or chills but she has felt generally weak. She continues to cough today and developed pain about an hour prior to arrival. 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 She states her hemoglobin has stabilized around 1112 at last check. She is currently on a transplant anti-rejection medicine which seems to have helped and they are trying to taper down her prednisone. She does tell me she is under an increased amount of stress lately as her daughter is in the hospital at [facility] and they had to "revive her" 2 times last week. She is currently doing somewhat better but will have permanent disabilities according to her mother's report. Allergies and Home Medications Allergies Coded Allergies: NKANo Known Allergies (Verified Allergy, Unknown, 12/27/05) codeine (Verified Allergy, Unknown, 09/09/19) Patient Home Medication List Home Medication List Reviewed: Yes Albuterol Sulfate (Ventolin Hfa) 18 Gm Hfa.aer.ad, 2 PUFF PO Q4H PRN for SHORTNESS OF BREATH, (Reported) Entered as Reported by: HETAL RAMOS on 09/06/19 1155 Biotin (Biotin) 1,000 Mcg Tab.chew, 1,000 MCG PO DAILY, (Reported) Entered as Reported by: HETAL RAMOS on 09/06/19 1155 Cholecalciferol (Vitamin D3) (Vitamin D3) 25 Mcg Tab.chew, 25 MCG PO DAILY, (Reported) Entered as Reported by: HETAL RAMOS on 09/06/19 1155 Cranberry Fruit (Cranberry) 500 Mg Tab.chew, 500 MG PO DAILY, (Reported) Entered as Reported by: HETAL RAMOS on 09/06/19 115 Cyanocobalamin (Vitamin B-12) (Vitamin B12) 2,500 Mcg Tab.chew, 2,500 MCG PO DAILY, (Reported) Entered as Reported by: HETAL RAMOS on 09/06/19 115 Estradiol (Estradiol) 42.5 Gm Cream.appl, 1 APPFUL VG WEEKLY, (Reported) Entered as Reported by: HETAL RAMOS on 09/06/19 115 Fluoxetine HCl (Fluoxetine HCl) 20 Mg Capsule, 20 MG PO 1800, (Reported) Entered as Reported by: HETAL RAMOS on 09/06/19 115 Folic Acid/Multivit-Minerals (Women's Multivitamin Gummies) 200 Mcg Tab.chew, 200 MCG PO DAILY, (Reported) Entered as Reported by: HETAL RAMOS on 09/06/19 115 Inulin/Chromium Picolinate (Fiber Gummies) 1 Each Tab.chew, 1 EACH PO DAILY, (Reported) Entered as Reported by: HETAL RAMOS on 09/06/19 115 Magnesium Oxide (Magnesium) 400 Mg Tablet, 400 MG PO DAILY, (Reported) Entered as Reported by: HETAL RAMOS on 09/06/19 115 Moexipril HCl (Moexipril HCl) 7.5 Mg Tablet, 7.5 MG PO 1800, (Reported) Entered as Reported by: HETAL RAMOS on 09/06/19 115 Nitrofurantoin Monohyd/M-Cryst (Macrobid 100 mg Capsule) 100 Mg Capsule, 1 TAB PO BID Prescribed by: TIMOTHY NGUYEN on 03/17/21538 Pantoprazole Sodium (Pantoprazole Sodium) 40 Mg Tablet.dr, 40 MG PO BID Prescribed by: PRITESH CHAVES on 09/07/19 1231 Peg 400/Hypromellose/Glycerin (Visine Dry Eye Relief Drop) 15 Ml Drops, 2 DROPS OU PRN PRN for DRY EYES, (Reported) Entered as Reported by: HETAL RAMOS on 09/06/19 115 Phenazopyridine HCl (Pyridium) 200 Mg Tablet, 1 TAB PO TID Prescribed by: TIMOTHY NGUYEN on 03/17/21538 Prednisone (Prednisone) 50 Mg Tab, 100 MG PO DAILY Prescribed by: PRITESH CHAVES on 09/07/19 1232 Simvastatin (Simvastatin) 20 Mg Tablet, 20 MG PO 1800, (Reported) Entered as Reported by: HETAL RAMOS on 09/06/19 1155 Spironolactone (Spironolactone) 100 Mg Tablet, 100 MG PO 1800, (Reported) Entered as Reported by: HETAL RAMOS on 09/06/19 115 Turmeric Root Extract (Turmeric) 538 Mg Capsule, 538 MG PO DAILY, (Reported) Entered as Reported by: HETAL RAMOS on 09/06/19 115 [Folic Acid] 1 MG TAB, 1 MG PO DAILY Prescribed by: PRITESH CHAVES on 09/07/19 1231 Review of Systems Review of Systems Constitutional: no symptoms reported EENTM: No Symptoms Reported Respiratory: Cough Cardiovascular: Chest Pain Gastrointestinal: No Symptoms Reported Genitourinary: No Symptoms Reported Musculoskeletal: no symptoms reported Skin: no symptoms reported Psychiatric/Neurological: No Symptoms Reported Endocrine: No Symptoms Reported Hematologic/Lymphatic: No Symptoms Reported Past Acrsxjm-Lbqkeo-Qvgyyd Hx Patient Social History Tobacco Use?: No Substance use?: No Alcohol Use?: No Pt feels they are or have been: No Immunizations Up To Date Influenza Vaccine Up-to-Date: Yes; Up-to-Date First/Initial COVID19 Vaccinat: JUL 2020 Second COVID19 Vaccination Julien: AUGUST 2020 Third COVID19 Vaccination Date: JUL 2020 Seasonal Allergies Seasonal Allergies: Yes Past Medical History Surgery/Hospitalization HX: WARM AUTOIMMUNE HEMOLYTIC ANEMIA, HTN Surgeries: Yes (SEE BELOW) Adenoidectomy, Appendectomy, Gallbladder, Hysterectomy, Oophorectomy, Orthopedic, Tonsillectomy Respiratory: Yes Asthma Cardiac: Yes Chronic Edema/Swelling, Hypertension Neurological: No Reproductive Disorders: 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) [employer] History: Hysterectomy, Menopausal Genitourinary: No Gastrointestinal: Yes Polyps Musculoskeletal: Yes (CHRONIC NECK PAIN--S/P CERVICAL SPINE [id number]) Degenerate Disk Disease, Osteoporosis, Arthritis, Rheumatoid Arthritis, Chronic Back Pain, Fractures Endocrine: No HEENT: No Cancer: Yes Cervical Did You Recieve Any Treatments: Yes What Type of Treatment Did You: Surgical Intervention Psychosocial: No Integumentary: No Blood Disorders: Yes (AUTOIMMUNE HEMOLYTIC ANEMIA) Family Medical History Reviewed Nursing Family Hx No Pertinent Family Hx PSH: -APPENDECTOMY AGE 15 -TONSILLECTOMY/ADENOIDECTOMY -HYSTERECTOMY 1987 FOR CERVICAL CANCER -BSO 1994--DUE TO MOTHER WITH OVARIAN CANCER -CHOLECYSTECTOMY 2005 -RIGHT WRIST/FOREARM FX/ORIF -CERVICAL SPINE FUSION--D3-F6-P6--DR. ANA MARÍA GAINES -EGD/COLONSCOPIES Physical Exam Vital Signs Vital Signs - First Documented 06/29/22 10:16 Temp 35.8 Pulse 67 Resp 18 B/P (MAP) 120/59 (79) Pulse Ox 98 O2 Delivery Room Air Capillary Refill : Less Than 3 Seconds Height, Weight, BMI Height: 5'2" Weight: 170lbs. oz. 77.470746ub; 27.00 BMI Method:Stated General Appearance: No Apparent Distress, WD/WN HEENT: PERRL/EOMI, Normal ENT Inspection, Pharynx Normal Neck: Normal Inspection, Supple Respiratory: Chest Non Tender, Lungs Clear, Normal Breath Sounds, No Accessory Muscle Use, No Respiratory Distress Cardiovascular: Regular Rate, Rhythm, No Edema, No Murmur, Normal Peripheral Pulses Gastrointestinal: Normal Bowel Sounds, No Organomegaly, No Pulsatile Mass, Soft Extremity: Normal Capillary Refill, Normal Inspection, Normal Range of Motion, Non Tender, No Calf Tenderness, No Pedal Edema Neurologic/Psychiatric: Alert, Oriented x3, Normal Mood/Affect Skin: Normal Color, Warm/Dry Progress/Results/Core Measures Results/Orders Lab Results Laboratory Tests Test 06/29/22 10:25 06/29/22 10:47 Range/Units White Blood Count 9.6 4.3-11.0 10^3/uL Red Blood Count 3.63 L 3.80-5.11 10^6/uL Hemoglobin 11.6 11.5-16.0 g/dL Hematocrit 34 L 35-52 % Mean Corpuscular Volume 93 80-99 fL Mean Corpuscular Hemoglobin 32 25-34 pg Mean Corpuscular Hemoglobin Concent 34 32-36 g/dL Red Cell Distribution Width 14.6 H 10.0-14.5 % Platelet Count 213 130-400 10^3/uL Mean Platelet Volume 10.3 9.0-12.2 fL Immature Granulocyte % (Auto) 1 % Neutrophils (%) (Auto) 89 H 42-75 % Lymphocytes (%) (Auto) 5 L 12-44 % Monocytes (%) (Auto) 6 0-12 % Eosinophils (%) (Auto) 0 0-10 % Basophils (%) (Auto) 0 0-10 % Neutrophils # (Auto) 8.5 H 1.8-7.8 10^3/uL Lymphocytes # (Auto) 0.5 L 1.0-4.0 10^3/uL Monocytes # (Auto) 0.5 0.0-1.0 10^3/uL Eosinophils # (Auto) 0.0 0.0-0.3 10^3/uL Basophils # (Auto) 0.0 0.0-0.1 10^3/uL Immature Granulocyte # (Auto) 0.1 0.0-0.1 10^3/uL Neutrophils % (Manual) 92 % Lymphocytes % (Manual) 3 % Monocytes % (Manual) 3 % Eosinophils % (Manual) 2 % Basophils % (Manual) 0 % Band Neutrophils 0 % Blood Morphology Comment NORMAL Sodium Level 139 135-145 MMOL/L Potassium Level 4.0 3.6-5.0 MMOL/L Chloride Level 103 98-107 MMOL/L Carbon Dioxide Level 23 21-32 MMOL/L Anion Gap 13 5-14 MMOL/L Blood Urea Nitrogen 21 H 7-18 MG/DL Creatinine 0.81 0.60-1.30 MG/DL Estimat Glomerular Filtration Rate 78 BUN/Creatinine Ratio 26 Glucose Level 109 H 70-105 MG/DL Calcium Level 9.0 8.5-10.1 MG/DL Corrected Calcium 8.9 8.5-10.1 MG/DL Magnesium Level 1.2 L 1.6-2.4 MG/DL Total Bilirubin 2.8 H 0.1-1.0 MG/DL Aspartate Amino Transf (AST/SGOT) 28 5-34 U/L Alanine Aminotransferase (ALT/SGPT) 30 0-55 U/L Alkaline Phosphatase 44 40-136 U/L Troponin I < 0.028 <0.028 NG/ML Total Protein 6.1 L 6.4-8.2 GM/DL Albumin 4.1 3.2-4.5 GM/DL Influenza Type A (RT-PCR) Not Detected Not Detecte Influenza Type B (RT-PCR) Not Detected Not Detecte SARS-CoV-2 RNA (RT-PCR) Detected H Not Detecte My Orders Orders - DEANA,JOSE F L DO Cbc With Automated Diff (06/29/22 10:35) Magnesium (06/29/22 10:35) Chest 1 View, Ap/Pa Only (06/29/22 10:35) Ekg Tracing (06/29/22 10:35) Comprehensive Metabolic Panel (06/29/22 10:35) Ed Iv/Invasive Line Start (06/29/22 10:35) Troponin I Sofy (06/29/22 10:35) Aspirin Chewable Tablet (Baby Aspirin Ch (06/29/22 10:45) Covid 19 Inhouse Test (06/29/22 10:35) Influenza A And B By Pcr (06/29/22 10:35) Manual Differential (06/29/22 10:25) Medications Given in ED Current Medications Medications Dose Ordered Sig/Stephan Route Start Time Stop Time Status Last Admin Dose Admin Aspirin 324 mg ONCE ONCE PO 06/29/22 10:45 06/29/22 10:46 DC 06/29/22 10:46 324 MG Vital Signs/I&O 06/29/22 10:16 Temp 35.8 Pulse 67 Resp 18 B/P (MAP) 120/59 (79) Pulse Ox 98 O2 Delivery Room Air Blood Pressure Mean: 79 Comment Sinus rhythm with a rate of 68 bpm. Normal intervals. Left axis deviation. No ST or T wave abnormality. No ectopy. No STEMI. Departure Communication (Admissions) The patient is hemodynamically stable. Initial EKG is nonischemic. Cardiac and respiratory work-up undertaken as well as COVID and flu testing. She had recent close contact with [facility] and her daughter who is currently hospitalized. Her vital signs are completely normal and her chest x-ray no acute abnormalities. Her COVID test is positive here. Her troponin is negative. I think that her chest pain is likely pleuritic in nature and her story is certainly consistent with this. She is a candidate for Paxlovid as she is high risk, especially with her immunomodulating medicines. She is given strict return precautions and discharged with oral Paxlovid prescription. She states understanding. She is comfortable agreeable discharge home at this time. Her hemoglobin is stable. Impression Primary Impression: COVID-19 Additional Impression: Pleuritic chest pain Disposition: HOME, SELF-CARE Condition: Stable Departure-Patient Inst. Referrals: TAMIKO MCCULLOUGH MD (PCP) Primary Care Physician Patient Instructions: Pleuritic Chest Pain ED, COVID-19 (DC) Add. Discharge Instructions: Increase your fluids at home, rest. Use ibuprofen and Tylenol as needed for headache, body aches. Take the oral COVID medicine, Paxlovid as prescribed until it is gone. Your body aches, headaches may get somewhat worse before they improve which would be a normal finding. Please return to the emergency department if you develop any severe shortness of breath that is not relieved by rest, severe chest pain, or if your symptoms change in any way concerning to you. Follow-up with your primary doctor in the next week for reevaluation. All discharge instructions reviewed with patient and/or family. Voiced understanding. Scripts Nirmatrelvir/Ritonavir (Paxlovid 300-100 mg Pack (Eua)) 300 Mg (150 Mg X 2)-100 Mg Tab.ds.pk 1 EACH PO BID for 5 Days, #1 PKG Prov: JOSE F LEBLANC DO 06/29/22 JOSE F LEBLANC DO Jun 29, 2022 10:40
[2022-06-29 10:43] LABS: BASOPHILS % (AUTO) 0 % (0-10); EOSINOPHILS % (AUTO) 0 % (0-10); HEMATOCRIT 34 % (35-52); HEMOGLOBIN 11.6 g/dL (11.5-16.0); LYMPHOCYTES # (AUTO) 0.5 10^3/uL (1.0-4.0); LYMPHOCYTES % (AUTO) 5 % (12-44); MEAN CORPUSCULAR HEMOGLOBIN 32 pg (25-34); MEAN CORPUSCULAR HGB CONC 34 g/dL (32-36); MEAN CORPUSCULAR VOLUME 93 fL (80-99); MEAN PLATELET VOLUME 10.3 fL (9.0-12.2); MONOCYTES # (AUTO) 0.5 10^3/uL (0.0-1.0); MONOCYTES % (AUTO) 6 % (0-12); NEUTROPHILS # (AUTO) 8.5 10^3/uL (1.8-7.8); NEUTROPHILS % (AUTO) 89 % (42-75); PLATELET COUNT 213 10^3/uL (130-400); WHITE BLOOD COUNT 9.6 10^3/uL (4.3-11.0)
[2022-06-29] MEDS ORDERED: ASPIRIN 81 MG CHEW (CHILDREN'S ASA) PO ONE (10:45)
[2022-06-29 10:46] LABS: ALBUMIN 4.1 GM/DL (3.2-4.5)
[2022-06-29 10:49] LABS: TOTAL PROTEIN 6.1 GM/DL (6.4-8.2)
[2022-06-29 10:51] LABS: BILIRUBIN,TOTAL 2.8 MG/DL (0.1-1.0)
[2022-06-29 10:53] LABS: CREATININE SERUM 0.81 MG/DL (0.60-1.30)
[2022-06-29 10:56] LABS: MAGNESIUM 1.2 MG/DL (1.6-2.4)
--- NOTE | 2022-06-29 10:57 | Diagnostic Imaging Report ---
INDICATION: Chest pain. COMPARISON: 09/03/2019. DISCUSSION: Single portable upright view of the chest was obtained. Stable normal heart size. No consolidation, pleural fluid, or pneumothorax. No osseous abnormality. IMPRESSION: 1. Negative chest. Dictated by: Dictated on workstation # [id number]
[2022-06-29 11:15] LABS: NEUTROPHILS % (MANUAL) 92 %
[2022-06-29 11:16] LABS: BAND NEUTROPHILS 0 %; BASOPHILS % (MANUAL) 0 %; EOSINOPHILS % (MANUAL) 2 %; LYMPHOCYTES % (MANUAL) 3 %; MONOCYTES % (MANUAL) 3 %; RBC MORPH NORMAL
[2022-06-29] MEDS ORDERED: NIRM1TAB PO (11:22)
[2022-06-29 11:34] VITALS: BP 110/50
== END 2022-06-29 11:34 | disposition home or self-care (01) ==
LOC: EDUNIT# 10:14 → ER 10:15
DX: U07.1 COVID-19 (principal); R07.81 Pleurodynia; D59.10 Autoimmune hemolytic anemia, unspecified; Z79.899 Other long term (current) drug therapy
CPT/HCPCS: 36415; 71045; 80053; 83735; 84484; 85007; 85027; 87636; 93005